=== PATIENT | male | born 1930 | race Caucasian/White ===

== ENCOUNTER 2020-02-24 12:58 | Inpatient (IN) | payer MEDICARE, OTHER ==
[~2020-02-24] VITALS: Ht 177.8 cm; Wt 83.3 kg
--- NOTE | 2020-02-24 13:34 | EKG ---
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
[2020-02-24 13:40] LABS: BASO # 0.1 x10^3/uL (0.0-0.2); BASO % 1 % (0-3); EOS # 0.1 x10^3/uL (0.0-0.7); EOS % 1 % (0-3); HEMATOCRIT 41.4 % (39.0-53.0); HEMOGLOBIN 13.8 g/dL (13.0-17.5); LYMPH # 0.7 x10^3/uL (1.0-4.8); LYMPH % 9 % (24-48); MEAN CORPUSCULAR HEMOGLOBIN 31 pg (25-35); MEAN CORPUSCULAR HGB CONC 33 g/dL (31-37); MEAN CORPUSCULAR VOLUME 93 fL (79-100); MONO # 0.4 x10^3/uL (0.0-1.1); MONO % 5 % (0-9); NEUT # 6.6 x10^3uL (1.8-7.7); NEUT % 83 % (31-73); PLATELET COUNT 280 x10^3/uL (140-400); RED BLOOD COUNT 4.46 x10^6/uL (4.30-5.70)
[2020-02-24 13:45] LABS: CALCIUM 8.8 mg/dL (8.5-10.1); CREATININE 1.5 mg/dL (0.7-1.3); GFR 44.2; POTASSIUM 3.7 mmol/L (3.5-5.1)
[2020-02-24] MEDS ORDERED: FOLI0.8C PO (13:51)
[2020-02-24] MEDS ORDERED: CYAN500T52 PO (13:51)
[2020-02-24] MEDS ORDERED: DOCU-109 PO (13:51)
[2020-02-24] MEDS ORDERED: ASPI-612 PO (13:51)
[2020-02-24] MEDS ORDERED: ATOR40TA59 PO (13:51)
[2020-02-24] MEDS ORDERED: TAMS0.4C97 PO (13:51)
[2020-02-24] MEDS ORDERED: POLY17PO5 PO (13:51)
[2020-02-24] MEDS ORDERED: TRAZ-120 PO (13:51)
[2020-02-24] MEDS ORDERED: OXYC5CAP PO (13:51)
[2020-02-24] MEDS ORDERED: MULT-735 PO (13:51)
[2020-02-24] MEDS ORDERED: OLAN10TA3 PO (13:51)
[2020-02-24] MEDS ORDERED: NITR0.4T22 SL (13:51)
[2020-02-24 13:52] LABS: ALBUMIN 3.3 g/dL (3.4-5.0); MAGNESIUM 2.3 mg/dL (1.8-2.4); TOTAL BILIRUBIN 0.8 mg/dL (0.2-1.0); TOTAL PROTEIN 6.7 g/dL (6.4-8.2)
--- NOTE | 2020-02-24 14:39 | PHYS DOC ---
General Adult EDM: Chief Complaint: MEDICAL CLEARANCE HPI: HPI: 89-year-old male presents for medical clearance for [facility] admission. Patient was reported to be difficult at his care facility. He was grabbing onto people and not compliant. He denies any medical complaints to me. Review of Systems: Review of Systems: Constitutional: Denies fever or chills Eyes: Denies change in visual acuity HENT: Denies nasal congestion or sore throat Respiratory: Denies cough or shortness of breath Cardiovascular: Denies chest pain or edema GI: Denies abdominal pain, nausea, vomiting, bloody stools or diarrhea : Denies dysuria Musculoskeletal: Denies back pain or joint pain Integument: Denies rash Neurologic: Denies headache, focal weakness or sensory changes Endocrine: Denies polyuria or polydipsia Lymphatic: Denies swollen glands Psychiatric: Denies depression or anxiety Heart Score: Risk Factors: Risk Factors: DM, Current or recent (<one month) smoker, HTN, HLP, family history of CAD, obesity. Risk Scores: Score 0 - 3: 2.5% MACE over next 6 weeks - Discharge Home Score 4 - 6: 20.3% MACE over next 6 weeks - Admit for Clinical Observation Score 7 - 10: 72.7% MACE over next 6 weeks - Early Invasive Strategies Allergies: Allergies: Allergies Coded Allergies Type Severity Reaction Last Updated Verified caffeine Allergy Unknown 02/24/20 Yes ranitidine Allergy Unknown 02/24/20 Yes Physical Exam: PE: Constitutional: Well developed, well nourished, no acute distress, non-toxic appearance. [] HENT: Normocephalic, atraumatic, bilateral external ears normal, oropharynx moist, no oral exudates, nose normal. [] Eyes: PERRLA, EOMI, conjunctiva normal, no discharge. [] Neck: Normal range of motion, no tenderness, supple, no stridor. [] Cardiovascular: Heart rate regular rhythm, no murmur [] Lungs & Thorax: Bilateral breath sounds clear to auscultation [] Abdomen: Bowel sounds normal, soft, no tenderness, no masses, no pulsatile masses. [] Skin: Warm, dry, no erythema, no rash. [] Back: No tenderness, no CVA tenderness. [] Extremities: No tenderness, no cyanosis, no clubbing, ROM intact, no edema. [] Neurologic: Alert normal motor function, normal sensory function, no focal deficits noted. [] Psychologic: Affect normal, judgement normal, mood normal. [] Current Patient Data: Labs: Laboratory Tests Test 02/24/20 13:25 White Blood Count 8.0 x10^3/uL (4.0-11.0) Red Blood Count 4.46 x10^6/uL (4.30-5.70) Hemoglobin 13.8 g/dL (13.0-17.5) Hematocrit 41.4 % (39.0-53.0) Mean Corpuscular Volume 93 fL (79-100) Mean Corpuscular Hemoglobin 31 pg (25-35) Mean Corpuscular Hemoglobin Concent 33 g/dL (31-37) Red Cell Distribution Width 15.0 % (11.5-14.5) H Platelet Count 280 x10^3/uL (140-400) Neutrophils (%) (Auto) 83 % (31-73) H Lymphocytes (%) (Auto) 9 % (24-48) L Monocytes (%) (Auto) 5 % (0-9) Eosinophils (%) (Auto) 1 % (0-3) Basophils (%) (Auto) 1 % (0-3) Neutrophils # (Auto) 6.6 x10^3uL (1.8-7.7) Lymphocytes # (Auto) 0.7 x10^3/uL (1.0-4.8) L Monocytes # (Auto) 0.4 x10^3/uL (0.0-1.1) Eosinophils # (Auto) 0.1 x10^3/uL (0.0-0.7) Basophils # (Auto) 0.1 x10^3/uL (0.0-0.2) Sodium Level 141 mmol/L (136-145) Potassium Level 3.7 mmol/L (3.5-5.1) Chloride Level 102 mmol/L (98-107) Carbon Dioxide Level 27 mmol/L (21-32) Anion Gap 12 (6-14) Blood Urea Nitrogen 33 mg/dL (8-26) H Creatinine 1.5 mg/dL (0.7-1.3) H Estimated GFR (Cockcroft-Gault) 44.2 BUN/Creatinine Ratio 22 (6-20) H Glucose Level 134 mg/dL (70-99) H Calcium Level 8.8 mg/dL (8.5-10.1) Magnesium Level 2.3 mg/dL (1.8-2.4) Total Bilirubin 0.8 mg/dL (0.2-1.0) Aspartate Amino Transferase (AST) 35 U/L (15-37) Alanine Aminotransferase (ALT) 50 U/L (16-63) Alkaline Phosphatase 82 U/L (46-116) Total Protein 6.7 g/dL (6.4-8.2) Albumin 3.3 g/dL (3.4-5.0) L Albumin/Globulin Ratio 1.0 (1.0-1.7) EKG: EKG: Sinus rhythm, rate 84, leftward axis, no ST elevations or depressions. Possible Q waves in multiple leads. [] Radiology/Procedures: Radiology/Procedures: [] Course & Med Decision Making: Course & Med Decision Making Pertinent Labs and Imaging studies reviewed. (See chart for details) The patient's EKG does not have any acute findings. Labs are unremarkable e xcept for creatinine 1.5. I have no baseline for comparison. He is medically stable for behavioral health admission. [] Dragon Disclaimer: Dragon Disclaimer: This electronic medical record was generated, in whole or in part, using a voice recognition dictation system. Departure Departure: Impression: Primary Impression: Medical clearance for psychiatric admission Disposition: ADMITTED INPATIENT Condition: STABLE Referrals: PCP,UNKNOWN (PCP) KELSIE RICHARDS DO February 24, 2020 14:39
[2020-02-24 15:39] LABS: CLARITY,URINE CLOUDY; COLOR,URINE AMBER
[2020-02-24 15:42] LABS: BILIRUBIN,URINE NEG (NEG); GLUCOSE,URINE NEG (NEG)
[2020-02-24 15:43] LABS: BACTERIA,URINE MOD /HPF (0-FEW); NITRITE,URINE NEG (NEG); RBC,URINE >40 /HPF (0-2); SQUAMOUS EPITHELIAL CELL,UR FEW /LPF
[2020-02-24] MEDS ORDERED: MAGNESIUM HYDROXIDE 2,400 MG/30 ML ORAL.SUSP. PO PRN (15:45)
[2020-02-24] MEDS ORDERED: MAG HYDROX/AL HYDROX/SIMETH 30 ML ORAL.SUSP PO PRN (15:45)
[2020-02-24] MEDS ORDERED: METHYL SALICYLATE/MENTHOL TOPICAL OINTMENT 57GM TUBE. TP PRN (15:45)
[2020-02-24] MEDS ORDERED: RIVA1PAT22 TP (15:48)
[2020-02-24] MEDS ORDERED: NITROGLYCERIN SUBLINGUAL 0.4 MG BOTTLE OF 25. SL PRN (16:00)
[2020-02-24] MEDS ORDERED: DOCUSATE SODIUM 100 MG CAPSULE PO PRN (16:00)
[2020-02-24 16:24] VITALS: BP 134/88
[2020-02-24] MEDS: OLANZapine 10 MG TABLET PO SCH (20:15)
[2020-02-24] MEDS: ATORVASTATIN CALCIUM 20 MG TABLET PO SCH (20:15)
[2020-02-24] MEDS: TAMSULOSIN 0.4 MG CAP.ER.24H. PO SCH (20:15)
--- NOTE | 2020-02-24 22:02 | PDOC ---
Exam Note: Jay Note: Please also refer to the separate dictated note~for this date of service dictated separately. Discussed the patient with Nursing staff reviewed the chart.~Reviewed interim history and current functioning. Reviewed vital signs,~Labs/ Radiology~and current medications noted below. Continue current treatment with the changes noted in the dictated addendum note Assessment: Vital Signs/I&O: Vital Signs Date Time Temp Pulse Resp B/P (MAP) Pulse Ox O2 Delivery O2 Flow Rate FiO2 02/24/20 16:24 98.0 77 18 134/88 (103) 93 02/24/20 12:58 Room Air Labs: Laboratory Tests Test 02/24/20 13:25 02/24/20 14:56 White Blood Count 8.0 x10^3/uL (4.0-11.0) Red Blood Count 4.46 x10^6/uL (4.30-5.70) Hemoglobin 13.8 g/dL (13.0-17.5) Hematocrit 41.4 % (39.0-53.0) Mean Corpuscular Volume 93 fL (79-100) Mean Corpuscular Hemoglobin 31 pg (25-35) Mean Corpuscular Hemoglobin Concent 33 g/dL (31-37) Red Cell Distribution Width 15.0 % (11.5-14.5) H Platelet Count 280 x10^3/uL (140-400) Neutrophils (%) (Auto) 83 % (31-73) H Lymphocytes (%) (Auto) 9 % (24-48) L Monocytes (%) (Auto) 5 % (0-9) Eosinophils (%) (Auto) 1 % (0-3) Basophils (%) (Auto) 1 % (0-3) Neutrophils # (Auto) 6.6 x10^3uL (1.8-7.7) Lymphocytes # (Auto) 0.7 x10^3/uL (1.0-4.8) L Monocytes # (Auto) 0.4 x10^3/uL (0.0-1.1) Eosinophils # (Auto) 0.1 x10^3/uL (0.0-0.7) Basophils # (Auto) 0.1 x10^3/uL (0.0-0.2) Sodium Level 141 mmol/L (136-145) Potassium Level 3.7 mmol/L (3.5-5.1) Chloride Level 102 mmol/L (98-107) Carbon Dioxide Level 27 mmol/L (21-32) Anion Gap 12 (6-14) Blood Urea Nitrogen 33 mg/dL (8-26) H Creatinine 1.5 mg/dL (0.7-1.3) H Estimated GFR (Cockcroft-Gault) 44.2 BUN/Creatinine Ratio 22 (6-20) H Glucose Level 134 mg/dL (70-99) H Calcium Level 8.8 mg/dL (8.5-10.1) Magnesium Level 2.3 mg/dL (1.8-2.4) Total Bilirubin 0.8 mg/dL (0.2-1.0) Aspartate Amino Transferase (AST) 35 U/L (15-37) Alanine Aminotransferase (ALT) 50 U/L (16-63) Alkaline Phosphatase 82 U/L (46-116) Total Protein 6.7 g/dL (6.4-8.2) Albumin 3.3 g/dL (3.4-5.0) L Albumin/Globulin Ratio 1.0 (1.0-1.7) Urine Collection Type Unknown Urine Color Jaclyn Urine Clarity Cloudy Urine pH 5.5 Urine Specific [place] >=1.030 Urine Protein 100 mg/dl (NEG-TRACE) Urine Glucose (UA) Neg mg/dL (NEG) Urine Ketones (Stick) 80 mg/dL (NEG) Urine Blood Large (NEG) Urine Nitrite Neg (NEG) Urine Bilirubin Neg (NEG) Urine Urobilinogen Dipstick 4.0 mg/dL (0.2 mg/dL) Urine Leukocyte Esterase Trace (NEG) Urine RBC >40 /HPF (0-2) Urine WBC 5-10 /HPF (0-4) Urine Squamous Epithelial Cells Few /LPF Urine Bacteria Mod /HPF (0-FEW) Urine Mucus Slight /LPF Current Medications: Meds: Current Medications Medications (Trade) Dose Ordered Sig/Nader Route PRN Reason Start Time Stop Time Status Last Admin Dose Admin Olanzapine (ZyPREXA) 10 mg BID PO 02/24/20 21:00 02/24/20 20:15 Tamsulosin HCl (Flomax) 0.8 mg HS PO 02/24/20 21:00 02/24/20 20:15 Atorvastatin Calcium (Lipitor) 40 mg QHS PO 02/24/20 21:00 02/24/20 20:15 I have reviewed the current psychotropics carefully including drug interactions. Risk benefit ratio favors no change other than as noted in my dictated progress note. Diagnosis: Problems: (1) Medical clearance for psychiatric admission ELI BURLESON MD February 24, 2020 22:02
[2020-02-25] MEDS: traZODone 50 MG TABLET. PO PRN ×2 (01:33→20:00)
[2020-02-25 04:07] LABS: THYROXINE 8.1 ug/dL (4.5-12.0)
[2020-02-25] MEDS: oxyCODONE IR 5 MG TABLET PO PRN (05:11)
[2020-02-25 05:37] VITALS: BP 144/78
[2020-02-25 07:08] LABS: HEMOGLOBIN A1C 5.6 % (4.8-5.6)
[2020-02-25] MEDS: RIVASTIGMINE 4.6MG PATCH. TD SCH (08:01)
[2020-02-25] MEDS: POLYETHYLENE GLYCOL 3350 17 GM PACKET. PO SCH (08:01)
[2020-02-25] MEDS: CYANOCOBALAMIN (VITAMIN B-12) 250 MCG TABLET PO SCH (08:02)
[2020-02-25] MEDS: NICOTINE 7MG PATCH. TD SCH (08:02)
[2020-02-25] MEDS: ASPIRIN ENTERIC COATED 81 MG TABLET.DR. PO SCH (08:02)
[2020-02-25] MEDS: MULTIVITAMIN with MINERAL TABLET. PO SCH (08:02)
[2020-02-25] MEDS: FOLIC ACID 1 MG TABLET PO SCH (08:02)
[2020-02-25] MEDS: OLANZapine 10 MG TABLET PO SCH (08:02)
[2020-02-25 15:09] LABS: THYROID STIM HORMONE (TSH) 3.238 uIU/mL (0.358-3.740)
[2020-02-25 15:50] VITALS: BP 160/91
[2020-02-25] MEDS: TAMSULOSIN 0.4 MG CAP.ER.24H. PO SCH (20:00)
[2020-02-25] MEDS: ATORVASTATIN CALCIUM 20 MG TABLET PO SCH (20:01)
--- NOTE | 2020-02-25 22:07 | PN ---
DATE: 02/25/2020 PSYCHIATRIC PROGRESS NOTE This note covers elements not covered in my initial note of 02/25/2020. SUBJECTIVE: I met with the patient evening of 02/25/2020 on AV, audiovisual rounds. Discussed with RAFAELA Arceo. The patient remains confused, anxious, restless, somewhat impulsive, trying to jump out of his chair and he has a past history of fall out of the chair. Catheter has been replaced back. He remains confused. REVIEW OF SYSTEMS: Ambulation impaired, in wheelchair. No CV, , pulmonary, eye system symptoms on review. MENTAL STATUS EXAM: Oriented to himself. Insight, judgment, recent memory is impaired. Language function intact. Attention span short. Mood and affect remains labile. LABORATORY DATA: Reviewed. IMPRESSION: Major neurocognitive disorder, Alzheimer, vascular with delusion, depression, behavioral disturbance; anxiety disorder, unspecified; impulse control disorder, unspecified; rule out urinary tract infection. Rest unchanged. PLAN: Continue current psychotropics. Reduce Zyprexa from 10 mg b.i.d. down to 5 mg b.i.d. Consider adding Depakote as a mood stabilizer, especially given his past history of seizure disorder and impulse control, restlessness, mood lability. Continue rest unchanged including Exelon patch, will make further changes as clinically indicated. MAN Natalia BURLESON MD DR: DANIEL/glenn JOB#: [id number] / [id number]
--- NOTE | 2020-02-25 22:13 | PDOC ---
Exam Note: Jay Note: Please also refer to the separate dictated note~for this date of service dictated separately.~Patient seen individually. Discussed the patient with Nursing staff reviewed the chart.~Reviewed interim history and current functioning. Reviewed vital signs,~Labs/ Radiology~and current medications noted below. Continue current treatment with the changes noted in the dictated addendum note Assessment: Vital Signs/I&O: Vital Signs Date Time Temp Pulse Resp B/P (MAP) Pulse Ox O2 Delivery O2 Flow Rate FiO2 02/25/20 15:50 97.6 76 18 160/91 (114) 95 02/25/20 05:37 Room Air I & O 02/24/20 02/24/20 02/25/20 14:59 22:59 06:59 Intake Total 0 ml Output Total 450 ml Balance 0 ml -450 ml Current Medications: Meds: Current Medications Medications (Trade) Dose Ordered Sig/Nader Route PRN Reason Start Time Stop Time Status Last Admin Dose Admin Nicotine (Nicoderm Cq 7mg) 1 patch DAILY TD 02/25/20 09:00 02/25/20 08:02 Aspirin (Aspirin Enteric Coated) 81 mg DAILY PO 02/25/20 09:00 02/25/20 08:02 Polyethylene Glycol (miraLAX) 17 gm DAILY PO 02/25/20 09:00 02/25/20 08:01 Rivastigmine (Exelon) 1 patch DAILY TD 02/25/20 09:00 03/25/20 10:00 02/25/20 08:01 Cyanocobalamin (Vitamin B-12) 500 mcg DAILY PO 02/25/20 09:00 02/25/20 08:02 Folic Acid (Folic Acid) 1 mg DAILY PO 02/25/20 09:00 02/25/20 08:02 Multivitamins/ Calcium (Thera-M Plus) 1 tab DAILY PO 02/25/20 09:00 02/25/20 08:02 I have reviewed the current psychotropics carefully including drug interactions. Risk benefit ratio favors no change other than as noted in my dictated progress note. Diagnosis: Problems: (1) Medical clearance for psychiatric admission (2) Major neurocognitive disorder, due to vascular disease, with behavioral disturbance, mild (3) Dementia, vascular, with delusions (4) Dementia, vascular, with depression (5) Dementia in Alzheimer's disease with delusions (6) Dementia in Alzheimer's disease with depression (7) Impulse control disorder, unspecified (8) Anxiety disorder, unspecified ELI BURLESON MD February 25, 2020 22:13
--- NOTE | 2020-02-25 23:17 | HP ---
ADMIT DATE: 02/24/2020 PSYCHIATRIC ADMISSION HISTORY/EVALUATION This late entry 02/24/2020 covers elements not covered in my initial note of 02/24/2020. The patient was seen individually evening of 02/24/2020. IDENTIFYING DATA: The patient is an 89-year-old male referred to us from [facility] by his primary care physician on account of worsening confusion, paranoia, agitation. He was pulling out his catheter, lunging from his wheelchair and had a fall as a consequence of this. He was yelling and hitting at staff, yelling at peers, pinching others, worsening confusion with worsening psychotic symptoms. He had failed outpatient psychiatric interventions. Behaviors were deemed dangerous, unmanageable at the facility resulting in this referral. He had been on IM Geodon p.r.n. in addition to Zyprexa 10 mg b.i.d. and had failed all of these interventions. CHIEF COMPLAINT: "I'm okay." HISTORY OF PRESENT ILLNESS: The patient has a history of dementia, Alzheimer's vascular type. He has been residing at the above facility for some time, but recently getting more paranoid, agitated, anxious and impulsive. He has had falls as noted, fevers, appetite changes, worsening paranoia. No clear history of bipolar disorder, suicidal or homicidal ideation. PAST PSYCHIATRIC HISTORY: As above. 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 Ambulates using a wheelchair. Urine has reflex to culture is pending. DIET: Regular. Takes medications whole. CODE STATUS: DNR. ALLERGIES: CAFFEINE, RANITIDINE. CURRENT PSYCHOTROPICS: Trazodone 50 mg at bedtime p.r.n. insomnia, Zyprexa 10 mg b.i.d.; Exelon patch 4.6 mg a day, increasing to 9.5 mg a day ____. FAMILY HISTORY: Noncontributory. SOCIAL HISTORY: No alcohol, drug abuse, physical, sexual or elder abuse history is noted. He is not known to be a perpetrator. REACTION TO HOSPITALIZATION: The patient is somewhat oblivious of this. ASSETS: Supportive living at the above facility. REVIEW OF SYSTEMS: Ambulation impaired. No CV, , pulmonary, eye system symptoms on review. Reliability poor. MENTAL STATUS EXAMINATION: The patient was seen individually evening of 02/24/2020. He is oriented to himself, thought the year was 21, was unaware of who the president was. Insight, judgment, recent memory is impaired. Language function intact. Attention span short. Mood and affect somewhat withdrawn. He had received PRNs before coming to our unit, was somewhat sedated. No active suicidal or homicidal ideations. LABORATORY DATA: Reviewed. IMPRESSION: Major neurocognitive disorder, probably vascular with delusion, depression, behavioral disturbance; anxiety disorder, unspecified; impulse control disorder, unspecified; rule out urinary tract infection. Rest as above. RECOMMENDATION: Please admit to the Geropsychiatry Unit at [facility]. I will see the patient daily individually from a psychiatric standpoint, medical followup with Dr. Metcalf. Continue the patient on his current psychotropics, observe baseline, may consider reducing the Zyprexa and using Depakote as a mood stabilizer, especially given his past history of seizure disorder. We will make further adjustments post baseline assessment. ESTIMATED LENGTH OF STAY: 10-12 days. DISPOSITION: Plan is back to halfway when stable. MAN Natalia BURLESON MD DR: DANIEL/glenn JOB#: [id number] / [id number]
[2020-02-26 06:25] VITALS: BP 161/62
[2020-02-26] MEDS: ASPIRIN ENTERIC COATED 81 MG TABLET.DR. PO SCH (08:05)
[2020-02-26] MEDS: RIVASTIGMINE 4.6MG PATCH. TD SCH (08:05)
[2020-02-26] MEDS: NICOTINE 7MG PATCH. TD SCH (08:05)
[2020-02-26] MEDS: FOLIC ACID 1 MG TABLET PO SCH (08:05)
[2020-02-26] MEDS: POLYETHYLENE GLYCOL 3350 17 GM PACKET. PO SCH (08:05)
[2020-02-26] MEDS: MULTIVITAMIN with MINERAL TABLET. PO SCH (08:06)
[2020-02-26] MEDS: CYANOCOBALAMIN (VITAMIN B-12) 250 MCG TABLET PO SCH (08:06)
[2020-02-26 15:32] VITALS: BP 138/89
[2020-02-26] MEDS: TAMSULOSIN 0.4 MG CAP.ER.24H. PO SCH (20:57)
[2020-02-26] MEDS: ATORVASTATIN CALCIUM 20 MG TABLET PO SCH (20:57)
[2020-02-26] MEDS: OLANZapine 5 MG TABLET PO SCH (20:57)
--- NOTE | 2020-02-26 22:17 | PDOC ---
Exam Note: Jay Note: Please also refer to the separate dictated note~for this date of service dictated separately.~Patient seen individually. Discussed the patient with Nursing staff reviewed the chart.~Reviewed interim history and current functioning. Reviewed vital signs,~Labs/ Radiology~and current medications noted below. Continue current treatment with the changes noted in the dictated addendum note Assessment: Vital Signs/I&O: Vital Signs Date Time Temp Pulse Resp B/P (MAP) Pulse Ox O2 Delivery O2 Flow Rate FiO2 02/26/20 15:32 97.4 72 18 138/89 (105) 95 02/26/20 06:25 Room Air I & O 02/25/20 02/25/20 02/26/20 15:00 23:00 07:00 Intake Total 480 ml 170 ml Output Total 1400 ml Balance 480 ml -1230 ml Current Medications: Meds: Current Medications Medications (Trade) Dose Ordered Sig/Nader Route PRN Reason Start Time Stop Time Status Last Admin Dose Admin Olanzapine (ZyPREXA) 5 mg BID PO 02/26/20 21:00 02/26/20 20:57 I have reviewed the current psychotropics carefully including drug interactions. Risk benefit ratio favors no change other than as noted in my dictated progress note. Diagnosis: Problems: (1) Medical clearance for psychiatric admission (2) Impulse control disorder, unspecified (3) Anxiety disorder, unspecified (4) Dementia, vascular, with depression (5) Dementia, vascular, with delusions (6) Dementia in Alzheimer's disease with depression (7) Dementia in Alzheimer's disease with delusions (8) Major neurocognitive disorder, due to vascular disease, with behavioral disturbance, mild ELI BURLESON MD February 26, 2020 22:17
[2020-02-27 06:33] VITALS: BP 137/89
[2020-02-27] MEDS: POLYETHYLENE GLYCOL 3350 17 GM PACKET. PO SCH (07:38)
[2020-02-27] MEDS: MULTIVITAMIN with MINERAL TABLET. PO SCH (07:39)
[2020-02-27] MEDS: OLANZapine 5 MG TABLET PO SCH ×2 (07:39→20:31)
[2020-02-27] MEDS: ASPIRIN ENTERIC COATED 81 MG TABLET.DR. PO SCH (07:39)
[2020-02-27] MEDS: RIVASTIGMINE 4.6MG PATCH. TD SCH (07:39)
[2020-02-27] MEDS: FOLIC ACID 1 MG TABLET PO SCH (07:39)
[2020-02-27] MEDS: CYANOCOBALAMIN (VITAMIN B-12) 250 MCG TABLET PO SCH (07:39)
[2020-02-27] MEDS: NICOTINE 7MG PATCH. TD SCH (07:40)
[2020-02-27] MEDS: oxyCODONE IR 5 MG TABLET PO PRN (11:57)
[2020-02-27 15:44] VITALS: BP 163/92
[2020-02-27] MEDS: ATORVASTATIN CALCIUM 20 MG TABLET PO SCH (20:31)
[2020-02-27] MEDS: traZODone 50 MG TABLET. PO PRN (20:31)
[2020-02-27] MEDS: TAMSULOSIN 0.4 MG CAP.ER.24H. PO SCH (20:31)
--- NOTE | 2020-02-27 21:43 | PN ---
DATE: 02/26/2020 PSYCHIATRIC PROGRESS NOTE This late entry 02/26/2020 covers elements not covered in my initial note. SUBJECTIVE: I met with the patient evening of 02/26/2020. Per RAFAELA Arceo, the patient slept 8 hours previous night. He has been quite sedated, tired during the day. This is despite reduction of Zyprexa from 10 mg b.i.d. down to 5 mg twice a day. Urine C and S has returned with no growth. He does seem more oriented than it seemed initially at admission as I questioned him, he knew it was 02/2020. REVIEW OF SYSTEMS: Positive for tiredness, impaired ambulation in wheelchair. No CV, , pulmonary, eye system symptoms on review. MENTAL STATUS EXAM: Oriented to himself and situation. Speech has some latency, often responses monosyllabic. Abstraction fair, computation impaired, language function intact, attention span short. Mood and affect withdrawn. LABORATORY DATA: Reviewed. IMPRESSION: Major depressive disorder, recurrent; major neurocognitive disorder, probably vascular with delusion, depression; anxiety disorder, unspecified. Rest unchanged. PLAN: Continue the lower dosage of Zyprexa 5 mg b.i.d. He is on Exelon patch, which is being increased. We will not use the trazodone since he is already sedated. May add low dose Wellbutrin as an augmentation and to help with his daytime energy, but I would like to give it a day or two and then decide. ELI BURLESON MD DR: DANIEL/glenn JOB#: [id number] / [id number]
--- NOTE | 2020-02-27 22:23 | PDOC ---
Exam Note: Jay Note: Please also refer to the separate dictated note~for this date of service dictated separately.~Patient seen individually. Discussed the patient with Nursing staff reviewed the chart.~Reviewed interim history and current functioning. Reviewed vital signs,~Labs/ Radiology~and current medications noted below. Continue current treatment with the changes noted in the dictated addendum note Assessment: Vital Signs/I&O: Vital Signs Date Time Temp Pulse Resp B/P (MAP) Pulse Ox O2 Delivery O2 Flow Rate FiO2 02/27/20 15:44 97.5 87 16 163/92 (115) 94 02/26/20 06:25 Room Air I & O 02/26/20 02/26/20 02/27/20 14:59 22:59 06:59 Intake Total 600 ml 240 ml 120 ml Output Total 250 ml 400 ml Balance 350 ml -160 ml 120 ml Current Medications: I have reviewed the current psychotropics carefully including drug interactions. Risk benefit ratio favors no change other than as noted in my dictated progress note. Diagnosis: Problems: (1) Medical clearance for psychiatric admission (2) Impulse control disorder, unspecified (3) Anxiety disorder, unspecified (4) Dementia, vascular, with depression (5) Dementia, vascular, with delusions (6) Dementia in Alzheimer's disease with depression (7) Dementia in Alzheimer's disease with delusions (8) Major neurocognitive disorder, due to vascular disease, with behavioral disturbance, mild ELI BURLESON MD February 27, 2020 22:23
[2020-02-28 06:32] VITALS: BP 131/73
[2020-02-28 06:47] LABS: BASO % 1 % (0-3); EOS # 0.8 x10^3/uL (0.0-0.7); EOS % 9 % (0-3); HEMATOCRIT 33.5 % (39.0-53.0); HEMOGLOBIN 11.2 g/dL (13.0-17.5); LYMPH # 1.7 x10^3/uL (1.0-4.8); LYMPH % 19 % (24-48); MEAN CORPUSCULAR HEMOGLOBIN 31 pg (25-35); MEAN CORPUSCULAR HGB CONC 34 g/dL (31-37); MEAN CORPUSCULAR VOLUME 92 fL (79-100); MONO # 0.6 x10^3/uL (0.0-1.1); MONO % 7 % (0-9); NEUT # 5.6 x10^3uL (1.8-7.7); NEUT % 64 % (31-73); PLATELET COUNT 209 x10^3/uL (140-400); RED BLOOD COUNT 3.63 x10^6/uL (4.30-5.70); WHITE BLOOD COUNT 8.7 x10^3/uL (4.0-11.0)
[2020-02-28 07:05] LABS: ALBUMIN 2.5 g/dL (3.4-5.0); ALBUMIN/GLOBULIN RATIO 0.9 (1.0-1.7); CALCIUM 8.1 mg/dL (8.5-10.1); CREATININE 1.2 mg/dL (0.7-1.3); GFR 57.1; POTASSIUM 3.8 mmol/L (3.5-5.1); TOTAL BILIRUBIN 0.7 mg/dL (0.2-1.0); TOTAL PROTEIN 5.4 g/dL (6.4-8.2)
[2020-02-28] MEDS: FOLIC ACID 1 MG TABLET PO SCH (09:00)
[2020-02-28] MEDS: ASPIRIN ENTERIC COATED 81 MG TABLET.DR. PO SCH (09:00)
[2020-02-28] MEDS: CYANOCOBALAMIN (VITAMIN B-12) 250 MCG TABLET PO SCH (09:01)
[2020-02-28] MEDS: SERTRALINE 25 MG TABLET. PO SCH (09:01)
[2020-02-28] MEDS: NICOTINE 7MG PATCH. TD SCH (09:01)
[2020-02-28] MEDS: POLYETHYLENE GLYCOL 3350 17 GM PACKET. PO SCH (09:01)
[2020-02-28] MEDS: MULTIVITAMIN with MINERAL TABLET. PO SCH (09:01)
[2020-02-28] MEDS: RIVASTIGMINE 4.6MG PATCH. TD SCH (09:01)
[2020-02-28] MEDS: OLANZapine 5 MG TABLET PO SCH (09:01)
[2020-02-28 16:44] VITALS: BP 121/75
[2020-02-28] MEDS: TAMSULOSIN 0.4 MG CAP.ER.24H. PO SCH (21:24)
[2020-02-28] MEDS: ATORVASTATIN CALCIUM 20 MG TABLET PO SCH (21:24)
[2020-02-28] MEDS: OLANZapine 2.5 MG TABLET PO SCH (21:24)
--- NOTE | 2020-02-28 22:00 | PN ---
DATE: 02/27/2020 PSYCHIATRIC PROGRESS NOTE This late entry 02/26 covers elements not covered in my initial note. SUBJECTIVE: I met with the patient evening of 02/26 on audiovisual rounds. Per RAFAELA Arceo, the patient slept 6 hours previous night. He did well at night and has been less tired during the day on 02/26. He remains in his wheelchair, went for meals to the dining room. REVIEW OF SYSTEMS: Ambulation impaired, in wheelchair. No CV, , pulmonary, eye system symptoms on review. MENTAL STATUS EXAM: Oriented to himself and situation. Speech is coherent, has some latency, appears less sedated. Abstraction fair, computation impaired, language function intact. Short-term memory does have some deficits, but less so than was evident earlier. No active suicidal or homicidal ideation. LABORATORY DATA: Reviewed. IMPRESSION: Major depressive disorder with psychotic features; mild cognitive impairment versus major neurocognitive disorder, Alzheimer, vascular with delusion, depression; impulse control disorder; rest unchanged. PLAN: We considered reducing Zyprexa further in due course, currently at 5 mg b.i.d. Maintain Exelon patch, trazodone. Start Zoloft 25 mg a day for 3 days, then 50 mg a day thereafter. Adjust further as clinically indicated. MAN Natalia BURLESON MD DR: DANIEL/glenn JOB#: [id number] / [id number]
--- NOTE | 2020-02-28 22:01 | PDOC ---
Exam Note: Jay Note: Please also refer to the separate dictated note~for this date of service dictated separately.~Patient seen individually. Discussed the patient with Nursing staff reviewed the chart.~Reviewed interim history and current functioning. Reviewed vital signs,~Labs/ Radiology~and current medications noted below. Continue current treatment with the changes noted in the dictated addendum note Assessment: Vital Signs/I&O: Vital Signs Date Time Temp Pulse Resp B/P (MAP) Pulse Ox O2 Delivery O2 Flow Rate FiO2 02/28/20 16:44 98.6 100 16 121/75 (90) 97 02/26/20 06:25 Room Air I & O 02/27/20 02/27/20 02/28/20 14:59 22:59 06:59 Intake Total 810 ml 320 ml Output Total 1000 ml Balance 810 ml -680 ml Labs: Laboratory Tests Test 02/28/20 06:08 White Blood Count 8.7 x10^3/uL (4.0-11.0) Red Blood Count 3.63 x10^6/uL (4.30-5.70) L Hemoglobin 11.2 g/dL (13.0-17.5) L Hematocrit 33.5 % (39.0-53.0) L Mean Corpuscular Volume 92 fL (79-100) Mean Corpuscular Hemoglobin 31 pg (25-35) Mean Corpuscular Hemoglobin Concent 34 g/dL (31-37) Red Cell Distribution Width 15.0 % (11.5-14.5) H Platelet Count 209 x10^3/uL (140-400) Neutrophils (%) (Auto) 64 % (31-73) Lymphocytes (%) (Auto) 19 % (24-48) L Monocytes (%) (Auto) 7 % (0-9) Eosinophils (%) (Auto) 9 % (0-3) H Basophils (%) (Auto) 1 % (0-3) Neutrophils # (Auto) 5.6 x10^3uL (1.8-7.7) Lymphocytes # (Auto) 1.7 x10^3/uL (1.0-4.8) Monocytes # (Auto) 0.6 x10^3/uL (0.0-1.1) Eosinophils # (Auto) 0.8 x10^3/uL (0.0-0.7) H Basophils # (Auto) 0.0 x10^3/uL (0.0-0.2) Sodium Level 140 mmol/L (136-145) Potassium Level 3.8 mmol/L (3.5-5.1) Chloride Level 104 mmol/L (98-107) Carbon Dioxide Level 28 mmol/L (21-32) Anion Gap 8 (6-14) Blood Urea Nitrogen 29 mg/dL (8-26) H Creatinine 1.2 mg/dL (0.7-1.3) Estimated GFR (Cockcroft-Gault) 57.1 BUN/Creatinine Ratio 24 (6-20) H Glucose Level 92 mg/dL (70-99) Calcium Level 8.1 mg/dL (8.5-10.1) L Total Bilirubin 0.7 mg/dL (0.2-1.0) Aspartate Amino Transferase (AST) 22 U/L (15-37) Alanine Aminotransferase (ALT) 37 U/L (16-63) Alkaline Phosphatase 75 U/L (46-116) Total Protein 5.4 g/dL (6.4-8.2) L Albumin 2.5 g/dL (3.4-5.0) L Albumin/Globulin Ratio 0.9 (1.0-1.7) L Current Medications: Meds: Current Medications Medications (Trade) Dose Ordered Sig/Nader Route PRN Reason Start Time Stop Time Status Last Admin Dose Admin Sertraline HCl (Zoloft) 25 mg DAILY PO 02/28/20 09:00 03/02/20 08:00 02/28/20 09:01 Olanzapine (ZyPREXA) 2.5 mg BID PO 02/28/20 21:00 02/28/20 21:24 I have reviewed the current psychotropics carefully including drug interactions. Risk benefit ratio favors no change other than as noted in my dictated progress note. Diagnosis: Problems: (1) Medical clearance for psychiatric admission (2) Impulse control disorder, unspecified (3) Anxiety disorder, unspecified (4) Dementia, vascular, with depression (5) Dementia, vascular, with delusions (6) Dementia in Alzheimer's disease with depression (7) Dementia in Alzheimer's disease with delusions (8) Major neurocognitive disorder, due to vascular disease, with behavioral disturbance, mild SARAH BETHELI MONTANEZ MD February 28, 2020 22:01
--- NOTE | 2020-02-28 22:08 | PN ---
DATE: 02/28/2020 PSYCHIATRIC PROGRESS NOTE This note covers elements not covered in my initial note 02/28/2020. SUBJECTIVE: I met with the patient evening of 02/28/2020. No audiovisual rounds and staffed at a treatment team meeting morning of 02/28/2020. Per RAFAELA Paula had treatment team meeting. Appetite 50%, slept 6-1/2 hours. He was somewhat confused previous evening and during the day today is asking female nursing staff to get into bed with him. This seemed to be more of a sense of humor per the nursing staff involved rather than any aggressive sexual behavior. Also discussed with Valeri Pereira RN in the evening. He has been less sedated during the day. REVIEW OF SYSTEMS: Ambulation impaired, in wheelchair. No CV, , pulmonary, eye system symptoms on review. MENTAL STATUS EXAM: Oriented to himself and situation. Speech has some latency, coherent, often responses monosyllabic. Abstraction fair, computation impaired, language function intact. Short term memory is impaired. No suicidal or homicidal ideation. LABORATORY DATA: Reviewed. IMPRESSION: Major depressive disorder, recurrent with psychotic features, mild cognitive impairment versus major neurocognitive disorder, Alzheimer, vascular with delusion, depression. Rest unchanged. PLAN: No change from initial note, gradually increase the Zoloft. Rest unchanged. Maintain Exelon patch and trazodone and we will reduce the Zyprexa down to 2.5 mg twice a day. Reviewed psychosocial history. The patient is living at home until recently with family checking in on him. He has been at the [facility] for residential care. Depending on his progress, we will decide what the most appropriate transition level of care would be for him. MAN Natalia BURLESON MD DR: DANIEL/glenn JOB#: [id number] / [id number]
[2020-02-29 05:50] VITALS: BP 150/72
[2020-02-29] MEDS: RIVASTIGMINE 4.6MG PATCH. TD SCH (08:26)
[2020-02-29] MEDS: NICOTINE 7MG PATCH. TD SCH (08:26)
[2020-02-29] MEDS: SERTRALINE 25 MG TABLET. PO SCH (08:27)
[2020-02-29] MEDS: POLYETHYLENE GLYCOL 3350 17 GM PACKET. PO SCH (08:27)
[2020-02-29] MEDS: CHOLECALCIFEROL (VITAMIN D3) 50,000 UNIT CAPSULE PO SCH (08:27)
[2020-02-29] MEDS: ASPIRIN ENTERIC COATED 81 MG TABLET.DR. PO SCH (08:27)
[2020-02-29] MEDS: OLANZapine 2.5 MG TABLET PO SCH (08:27)
[2020-02-29] MEDS: FOLIC ACID 1 MG TABLET PO SCH (08:27)
[2020-02-29] MEDS: CYANOCOBALAMIN (VITAMIN B-12) 250 MCG TABLET PO SCH (08:27)
[2020-02-29] MEDS: MULTIVITAMIN with MINERAL TABLET. PO SCH (08:27)
--- NOTE | 2020-02-29 11:43 | TX PLAN ---
Interdisciplinary Tx Plan Admission Information February 24, 2020 at 15:05 Legal Status (on Admission): Voluntary DPOA/Guardian Name: Tracy Godinez Contact Other Contact Name: Koffi Barragan Other Contact Verified Code Status: Full Code Allergies: Coded Allergies: caffeine (Verified Allergy, Unknown, 02/24/20) ranitidine (Verified Allergy, Unknown, 02/24/20) Diagnoses Primary Diagnosis: Major Neurocognitive D/O, Alzheimer's, Vascular with delusions/depressions Reasons for Admission: Aggressive, Combative, Confusion/Disoriented, Poor impulse control Problem in Patient's Words: Pt has been falling more and this last fall he actually broke something and has not been able to come back from it. Additional Admission Comments: According to the intake, pt is agitated, pulled out his catheter, lunged from the chair and grabbed staff, twisted staff arm, pinched nurse in the leg, hitting staff, and has insomnia Problems Active Problems: Drowsy Agitation Confusion Inactive Problems: Medication compliant Pt Strengths/Limitations Ability for Sims: Poor Cognitive Functioning/Ability: Poor Communication Skills/Ability: Fair Financial Resources: Fair Insight/Judgement: Poor Intellectual Ability: Fair Physical Health: Poor Social Skills: Poor Stability in Family: Fair Stability in School/Work: Poor Verbal Skills: Fair Discharge Criteria Discharge Criteria: Able meet basic life need, Adequate arrangements @DC, Verbal commit aftercare, Improved behavior, Improved mood/thought Preliminary Discharge Plan Preliminary DC Plan: Long-Term, Current Living Arrange. Special Precautions Fall Risk: Moderate Initial D/C Plan Pt will need to be re-evaluated for admission back to [facility]. Identified Discharge Needs: Needs to follow up with neurology Currently Utilized Resources Currently Utilized Resources/P: Primary Care Physician Referrals Community Resources: Neurology Identified Problems/Hx/Goals Objectives/Short-Term Goals Short Term Goals: Dec. Aggression, Dec. Outbursts, Medication Stabilization, Promote Coping Skill Short Term Goals in Patient's: I want to get back home. Interventions/Frequency Staff Interventions/Frequency&: Psychiatrist to assess pt 3x per week. Social Work to assess pt 2x per week. Nursing to assess and complete 15 minute checks daily. Encourage group participation in activities/1:1 time based on assessment/goals set by Activity Dept. 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 He then joined the [employer] and retired from the from there. He worked for [employer] doing mechanical work. 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
[2020-02-29 16:06] VITALS: BP 133/82
[2020-02-29] MEDS: TAMSULOSIN 0.4 MG CAP.ER.24H. PO SCH (19:59)
[2020-02-29] MEDS: ATORVASTATIN CALCIUM 20 MG TABLET PO SCH (19:59)
--- NOTE | 2020-02-29 22:17 | PDOC ---
Exam Note: Jay Note: Please also refer to the separate dictated note~for this date of service dictated separately.~Patient seen individually. Discussed the patient with Nursing staff reviewed the chart.~Reviewed interim history and current functioning. Reviewed vital signs,~Labs/ Radiology~and current medications noted below. Continue current treatment with the changes noted in the dictated addendum note Assessment: Vital Signs/I&O: Vital Signs Date Time Temp Pulse Resp B/P (MAP) Pulse Ox O2 Delivery O2 Flow Rate FiO2 02/29/20 20:36 98.1 92 02/29/20 16:06 78 16 133/82 (99) 02/26/20 06:25 Room Air I & O 02/28/20 02/28/20 02/29/20 15:00 23:00 07:00 Intake Total 480 ml 420 ml Output Total 600 ml Balance -120 ml 420 ml Current Medications: Meds: Current Medications Medications (Trade) Dose Ordered Sig/Nader Route PRN Reason Start Time Stop Time Status Last Admin Dose Admin Vitamin D (Vitamin D3) 50,000 unit WEEKLY PO 02/29/20 09:00 02/29/20 08:27 I have reviewed the current psychotropics carefully including drug interactions. Risk benefit ratio favors no change other than as noted in my dictated progress note. Diagnosis: Problems: (1) Medical clearance for psychiatric admission (2) Impulse control disorder, unspecified (3) Anxiety disorder, unspecified (4) Dementia, vascular, with depression (5) Dementia, vascular, with delusions (6) Dementia in Alzheimer's disease with depression (7) Dementia in Alzheimer's disease with delusions (8) Major neurocognitive disorder, due to vascular disease, with behavioral disturbance, mild (9) Major depressive disorder with psychotic features ELI BURLESON MD February 29, 2020 22:17
[2020-03-01 06:15] LABS: BASO % 1 % (0-3); EOS # 0.5 x10^3/uL (0.0-0.7); EOS % 7 % (0-3); HEMATOCRIT 34.5 % (39.0-53.0); HEMOGLOBIN 11.7 g/dL (13.0-17.5); LYMPH # 1.3 x10^3/uL (1.0-4.8); LYMPH % 19 % (24-48); MEAN CORPUSCULAR HEMOGLOBIN 31 pg (25-35); MEAN CORPUSCULAR HGB CONC 34 g/dL (31-37); MEAN CORPUSCULAR VOLUME 92 fL (79-100); MONO # 0.5 x10^3/uL (0.0-1.1); MONO % 7 % (0-9); NEUT # 4.6 x10^3uL (1.8-7.7); NEUT % 66 % (31-73); PLATELET COUNT 227 x10^3/uL (140-400); RED BLOOD COUNT 3.75 x10^6/uL (4.30-5.70); RED CELL DISTRIBUTION WIDTH 14.2 % (11.5-14.5); WHITE BLOOD COUNT 6.9 x10^3/uL (4.0-11.0)
[2020-03-01 06:24] VITALS: BP 134/73
[2020-03-01 06:28] LABS: ALBUMIN 2.6 g/dL (3.4-5.0); ALBUMIN/GLOBULIN RATIO 0.8 (1.0-1.7); CALCIUM 8.3 mg/dL (8.5-10.1); GFR 70.5; MAGNESIUM 2.1 mg/dL (1.8-2.4); POTASSIUM 3.9 mmol/L (3.5-5.1); TOTAL BILIRUBIN 0.9 mg/dL (0.2-1.0); TOTAL PROTEIN 5.9 g/dL (6.4-8.2)
[2020-03-01] MEDS: POLYETHYLENE GLYCOL 3350 17 GM PACKET. PO SCH (08:26)
[2020-03-01] MEDS: RIVASTIGMINE 4.6MG PATCH. TD SCH (08:27)
[2020-03-01] MEDS: NICOTINE 7MG PATCH. TD SCH (08:28)
[2020-03-01] MEDS: OLANZapine 2.5 MG TABLET PO SCH (08:28)
[2020-03-01] MEDS: CYANOCOBALAMIN (VITAMIN B-12) 250 MCG TABLET PO SCH (08:28)
[2020-03-01] MEDS: ASPIRIN ENTERIC COATED 81 MG TABLET.DR. PO SCH (08:29)
[2020-03-01] MEDS: MULTIVITAMIN with MINERAL TABLET. PO SCH (08:29)
[2020-03-01] MEDS: SERTRALINE 25 MG TABLET. PO SCH (08:29)
[2020-03-01] MEDS: FOLIC ACID 1 MG TABLET PO SCH (08:30)
[2020-03-01 15:47] VITALS: BP 122/76
[2020-03-01] MEDS: ATORVASTATIN CALCIUM 20 MG TABLET PO SCH (20:41)
[2020-03-01] MEDS: TAMSULOSIN 0.4 MG CAP.ER.24H. PO SCH (20:41)
--- NOTE | 2020-03-01 21:53 | PDOC ---
Exam Note: Jay Note: Please also refer to the separate dictated note~for this date of service dictated separately.~Patient seen individually. Discussed the patient with Nursing staff reviewed the chart.~Reviewed interim history and current functioning. Reviewed vital signs,~Labs/ Radiology~and current medications noted below. Continue current treatment with the changes noted in the dictated addendum note Assessment: Vital Signs/I&O: Vital Signs Date Time Temp Pulse Resp B/P (MAP) Pulse Ox O2 Delivery O2 Flow Rate FiO2 03/01/20 20:17 98.8 90 03/01/20 15:47 74 16 122/76 (91) 03/01/20 06:24 Room Air I & O 02/29/20 02/29/20 03/01/20 15:00 23:00 07:00 Intake Total 960 ml 60 ml Output Total 750 ml Balance 960 ml -690 ml Labs: Laboratory Tests Test 03/01/20 05:47 White Blood Count 6.9 x10^3/uL (4.0-11.0) Red Blood Count 3.75 x10^6/uL (4.30-5.70) L Hemoglobin 11.7 g/dL (13.0-17.5) L Hematocrit 34.5 % (39.0-53.0) L Mean Corpuscular Volume 92 fL (79-100) Mean Corpuscular Hemoglobin 31 pg (25-35) Mean Corpuscular Hemoglobin Concent 34 g/dL (31-37) Red Cell Distribution Width 14.2 % (11.5-14.5) Platelet Count 227 x10^3/uL (140-400) Neutrophils (%) (Auto) 66 % (31-73) Lymphocytes (%) (Auto) 19 % (24-48) L Monocytes (%) (Auto) 7 % (0-9) Eosinophils (%) (Auto) 7 % (0-3) H Basophils (%) (Auto) 1 % (0-3) Neutrophils # (Auto) 4.6 x10^3uL (1.8-7.7) Lymphocytes # (Auto) 1.3 x10^3/uL (1.0-4.8) Monocytes # (Auto) 0.5 x10^3/uL (0.0-1.1) Eosinophils # (Auto) 0.5 x10^3/uL (0.0-0.7) Basophils # (Auto) 0.0 x10^3/uL (0.0-0.2) Sodium Level 138 mmol/L (136-145) Potassium Level 3.9 mmol/L (3.5-5.1) Chloride Level 104 mmol/L (98-107) Carbon Dioxide Level 29 mmol/L (21-32) Anion Gap 5 (6-14) L Blood Urea Nitrogen 25 mg/dL (8-26) Creatinine 1.0 mg/dL (0.7-1.3) Estimated GFR (Cockcroft-Gault) 70.5 BUN/Creatinine Ratio 25 (6-20) H Glucose Level 92 mg/dL (70-99) Calcium Level 8.3 mg/dL (8.5-10.1) L Magnesium Level 2.1 mg/dL (1.8-2.4) Total Bilirubin 0.9 mg/dL (0.2-1.0) Aspartate Amino Transferase (AST) 23 U/L (15-37) Alanine Aminotransferase (ALT) 37 U/L (16-63) Alkaline Phosphatase 82 U/L (46-116) Total Protein 5.9 g/dL (6.4-8.2) L Albumin 2.6 g/dL (3.4-5.0) L Albumin/Globulin Ratio 0.8 (1.0-1.7) L Current Medications: Meds: Current Medications Medications (Trade) Dose Ordered Sig/Nader Route PRN Reason Start Time Stop Time Status Last Admin Dose Admin Olanzapine (ZyPREXA) 2.5 mg DAILY PO 03/01/20 09:00 03/04/20 08:59 03/01/20 08:28 I have reviewed the current psychotropics carefully including drug interactions. Risk benefit ratio favors no change other than as noted in my dictated progress note. Diagnosis: Problems: (1) Impulse control disorder, unspecified (2) Anxiety disorder, unspecified (3) Dementia, vascular, with depression (4) Dementia, vascular, with delusions (5) Dementia in Alzheimer's disease with depression (6) Dementia in Alzheimer's disease with delusions (7) Major neurocognitive disorder, due to vascular disease, with behavioral disturbance, mild (8) Major depressive disorder with psychotic features ELI BURLESON MD March 01, 2020 21:53
[2020-03-02 05:13] VITALS: BP 142/85
[2020-03-02] MEDS: OLANZapine 2.5 MG TABLET PO SCH (08:14)
[2020-03-02] MEDS: FOLIC ACID 1 MG TABLET PO SCH (08:15)
[2020-03-02] MEDS: MULTIVITAMIN with MINERAL TABLET. PO SCH (08:15)
[2020-03-02] MEDS: CYANOCOBALAMIN (VITAMIN B-12) 250 MCG TABLET PO SCH (08:15)
[2020-03-02] MEDS: ASPIRIN ENTERIC COATED 81 MG TABLET.DR. PO SCH (08:15)
[2020-03-02] MEDS: SERTRALINE 25 MG TABLET. PO SCH (08:15)
[2020-03-02] MEDS: POLYETHYLENE GLYCOL 3350 17 GM PACKET. PO SCH (08:16)
[2020-03-02] MEDS: RIVASTIGMINE 4.6MG PATCH. TD SCH (08:16)
[2020-03-02] MEDS: NICOTINE 7MG PATCH. TD SCH (08:16)
--- NOTE | 2020-03-02 14:33 | CONS ---
DATE OF CONSULTATION: REASON FOR CONSULTATION: Medical management. HISTORY OF PRESENT ILLNESS: The patient is an 89-year-old male patient who was referred to [facility] from [facility] by his primary care physician on account of worsening confusion, paranoia, agitation. He was pulling out his catheter, lunging from his wheelchair and had a fall. As a consequence of this, he was yelling and hitting at staff, yelling at peers, pinching other, worsening confusion, worsening psychotic symptoms. He apparently has failed outpatient psychiatric intervention. His behaviors were deemed dangerous, unmanageable at the facility resulting in transferring him to [facility]. Unfortunately, the patient is extremely demented and does not really give any useful information. PAST MEDICAL HISTORY: Significant for chronic obstructive pulmonary disease, benign prostatic hypertrophy, has multiple compression fractures of spinal vertebra. He has a history of V-tach with a pacemaker in place, history of seizure disorder. He normally ambulates with a wheelchair. PAST SURGICAL HISTORY: Significant for permanent pacemaker placement. ALLERGIES: He is allergic to CAFFEINE and RANITIDINE. MEDICATIONS: He is currently on following medications: He is on rivastigmine for Exelon 4.6 mg patch apply topically once a day, tamsulosin 0.8 mg at bedtime, atorvastatin calcium 40 mg at bedtime, nitroglycerin 0.4 mg sublingual every 5 minutes x 3, aspirin 81 mg once a day, oxycodone 5 mg every 4 hours as needed, trazodone 50 mg at bedtime, olanzapine 10 mg twice a day, Colace 100 mg twice a day, polyethylene glycol 17 grams daily, cyanocobalamin 500 mcg once a day and folic acid 800 mcg once a day, multivitamin 1 tablet once a day. FAMILY HISTORY: Noncontributory. SOCIAL HISTORY: He is apparently residing at [facility]. He does not smoke, drink alcohol or use any recreational drugs. PHYSICAL EXAMINATION: GENERAL: On examining him, he looked well and was clearly in no apparent respiratory distress. No pallor, jaundice or cyanosis. No lymphadenopathy, no thyromegaly. No jugular venous distention. No limb edema. VITAL SIGNS: His heart rate was 76, blood pressure was 144/78, temperature was 97.7, respiratory rate 20, and oxygen saturation was 92% on room air. HEAD, EYES, EARS, NOSE AND THROAT: Showed he is normocephalic, atraumatic. NECK: Supple. CARDIAC: Normal first and second sounds. No gallop, rub or murmur. CHEST: Clear to auscultation. No crepitation or rhonchi. ABDOMEN: Distended, soft, nontender. NEUROLOGIC: He is demented, but without any obvious lateralizing sign. All his cranial nerves are intact. He moves extremities spontaneously; however, he is mostly wheelchair bound. LABORATORY DATA: His lab work on admission showed a white cell count of 8000, hemoglobin 14, hematocrit 41, MCV 93, and platelet count 280,000. His lab work on admission showed a serum sodium 141, potassium 3.7, chloride 102, bicarbonate 27, anion gap of 12, BUN 33, creatinine 1.5, estimated GFR was 44 mL per minute, his glucose 134. His calcium was 8.8, magnesium 2.3. His serum iron, TIBC and iron saturation are all low, indicating that he has anemia of chronic disease. His total bilirubin, AST, ALT, alkaline phosphatase were normal. Total protein was 6.7, albumin was 3.3. Serum triglycerides were 129, total cholesterol 127, LDL cholesterol was 62, VLDL was 25, HDL was 87 and the ratio was 3. His vitamin B12 was 1763. His TSH was normal at 3.38. His total T4 and total T3 are all within normal range. His urinalysis showed the urine was arlyn, cloudy with a pH of 5.5, specific gravity of 1.030. There is a large amount of protein, negative for glucose, large amount of ketones, large amount of blood, negative for nitrite with trace of leukocyte esterase, more than 40 ____, 5-10 wbc's and moderate amount of bacteria. His treponema pallidum antibodies were nonreactive. ASSESSMENT AND PLAN: In summary, this is an 89-year-old male patient who was referred from [facility] by his primary care physician on account of worsening confusion, paranoia, agitation. His medical problems significant for chronic obstructive pulmonary disease, benign prostatic hypertrophy, has had a history of seizure disorder and has a history of V-tach with pacemaker placement. His lab work showed that he has chronic kidney disease with a BUN of 33, creatinine 1.5 and estimated GFR was 44 mL per minute. Urinalysis showed that he has 5-10 wbc's. ____, I am not really convinced that he has urinary tract infection, but we will send urine for culture and sensitivity. We will obviously monitor his kidney function as he has obviously elevated creatinine and BUN. He has an indwelling Link catheter and if the kidney function continued to worsen, might have to change the Link catheter or flush it to make sure that there is no obstructive uropathy. Thank you, Dr. Baltazar, for allowing me to participate in the care of this patient. COLTON DEAL MD DR: PATEL/glenn JOB#: [id number] / [id number]
[2020-03-02 15:35] VITALS: BP 132/64
[2020-03-02] MEDS: ATORVASTATIN CALCIUM 20 MG TABLET PO SCH (19:43)
[2020-03-02] MEDS: TAMSULOSIN 0.4 MG CAP.ER.24H. PO SCH (19:44)
--- NOTE | 2020-03-02 21:29 | PN ---
DATE: 02/29/2020 PSYCHIATRIC PROGRESS NOTE This late entry 02/29/2020 covers elements not covered in my initial note. SUBJECTIVE: I met with the patient evening of 02/29/2020. The patient was seen on audiovisual rounds. Per RAFAELA Banegas, the patient slept 8-1/4 hours previous night. He is pleasant, aware that he is in the hospital, aware of his date of , but felt the year was 1990. No overt psychotic symptoms despite reduction in his Zyprexa, which is planned to be discontinued in 3 days. REVIEW OF SYSTEMS: No CV, , pulmonary, eye, ENT system symptoms on review. MENTAL STATUS EXAMINATION: Oriented to himself and situation. Speech has some latency, coherent. Abstraction fair, computation impaired. Language function intact. Mood and affect withdrawn. LABORATORY DATA: Reviewed. IMPRESSION: Major depressive disorder with psychotic features, mild cognitive impairment. Rest unchanged. PLAN: No change from initial note. Taper and stop the scheduled Zyprexa. Maintain trazodone, Exelon, gradually increasing along with Zoloft. MAN Natalia BURLESON MD DR: DANIEL/glenn JOB#: [id number] / [id number]
--- NOTE | 2020-03-02 21:29 | PN ---
DATE: 03/01/2020 PSYCHIATRIC PROGRESS NOTE This late entry 03/01/2020 covers elements not covered in my initial note. SUBJECTIVE: I met with the patient evening of 03/01/2020. Per RAFAELA Banegas, the patient slept 9-1/4 hours previous night. He has been confused, but not aggressive, disruptive, compliant with medications. REVIEW OF SYSTEMS: No CV, , pulmonary, eye system symptoms on review. MENTAL STATUS EXAM: Oriented to himself and situation. Speech has some latency, coherent. Abstraction fair, computation impaired, language function intact. Mood and affect still somewhat depressed, anxious, but better than before. LABORATORY DATA: Reviewed. IMPRESSION: Unchanged from initial note. PLAN: No change from initial note. MAN Natalia BURLESON MD DR: DANIEL/glenn JOB#: [id number] / [id number]
--- NOTE | 2020-03-02 21:36 | PN ---
DATE: 03/02/2020 PSYCHIATRIC PROGRESS NOTE This note covers elements not covered in my initial note 03/02. SUBJECTIVE: I met with the patient on audiovisual rounds in the evening and staffed at a treatment team meeting with the entire team in the morning. Per RAFAELA Garcia, the patient slept 6-3/4 hours previous night. He has had no aggressive-disruptive behaviors, remained somewhat withdrawn, ate nothing for lunch or dinner and I addressed this with him individually, encouraging him to force himself to eat whenever he can and he is agreeable to this. REVIEW OF SYSTEMS: Ambulation impaired. No CV, , pulmonary, eye system symptoms on review. MENTAL STATUS EXAM: Oriented to himself and situation. Speech is coherent, has some latency. Abstraction fair, computation impaired, language function intact, attention span short. Mood and affect withdrawn. LABORATORY DATA: Reviewed. IMPRESSION: Major depressive disorder, recurrent; major neurocognitive disorder, Alzheimer, vascular with depression, mild cognitive impairment. Rest unchanged. PLAN: No change from initial note. Taper and stop the scheduled Zyprexa. Increase the Exelon patch to 9.5 mg a day. Continue trazodone 50 mg at bedtime p.r.n. Zoloft increased from 25 mg a day to 50 mg a day. Rest unchanged for now. MAN Natalia BURLESON MD DR: DANIEL/glenn JOB#: [id number] / [id number]
--- NOTE | 2020-03-02 21:59 | PDOC ---
Exam Note: Jay Note: Please also refer to the separate dictated note~for this date of service dictated separately.~Patient seen individually. Discussed the patient with Nursing staff reviewed the chart.~Reviewed interim history and current functioning. Reviewed vital signs,~Labs/ Radiology~and current medications noted below. Continue current treatment with the changes noted in the dictated addendum note Assessment: Vital Signs/I&O: Vital Signs Date Time Temp Pulse Resp B/P (MAP) Pulse Ox O2 Delivery O2 Flow Rate FiO2 03/02/20 20:54 97.9 100 03/02/20 15:35 75 18 132/64 (86) 03/02/20 05:13 Room Air I & O 03/01/20 03/01/20 03/02/20 15:00 23:00 07:00 Intake Total 480 ml 480 ml Output Total 800 ml 450 ml Balance 480 ml -320 ml -450 ml Current Medications: Meds: Current Medications Medications (Trade) Dose Ordered Sig/Nader Route PRN Reason Start Time Stop Time Status Last Admin Dose Admin Sertraline HCl (Zoloft) 50 mg DAILY PO 03/02/20 09:00 03/02/20 08:15 I have reviewed the current psychotropics carefully including drug interactions. Risk benefit ratio favors no change other than as noted in my dictated progress note. Diagnosis: Problems: (1) Impulse control disorder, unspecified (2) Anxiety disorder, unspecified (3) Dementia, vascular, with depression (4) Dementia, vascular, with delusions (5) Dementia in Alzheimer's disease with depression (6) Dementia in Alzheimer's disease with delusions (7) Major neurocognitive disorder, due to vascular disease, with behavioral disturbance, mild (8) Major depressive disorder with psychotic features ELI BURLESON MD March 02, 2020 21:59
[2020-03-03 06:24] LABS: BASO % 1 % (0-3); EOS # 0.4 x10^3/uL (0.0-0.7); EOS % 7 % (0-3); HEMATOCRIT 35.9 % (39.0-53.0); HEMOGLOBIN 12.2 g/dL (13.0-17.5); LYMPH # 1.6 x10^3/uL (1.0-4.8); LYMPH % 27 % (24-48); MEAN CORPUSCULAR HEMOGLOBIN 31 pg (25-35); MEAN CORPUSCULAR HGB CONC 34 g/dL (31-37); MEAN CORPUSCULAR VOLUME 92 fL (79-100); MONO # 0.6 x10^3/uL (0.0-1.1); MONO % 11 % (0-9); NEUT # 3.3 x10^3uL (1.8-7.7); NEUT % 55 % (31-73); PLATELET COUNT 223 x10^3/uL (140-400); RED BLOOD COUNT 3.92 x10^6/uL (4.30-5.70); RED CELL DISTRIBUTION WIDTH 14.9 % (11.5-14.5)
[2020-03-03 06:33] VITALS: BP 103/57
[2020-03-03 06:41] LABS: ALBUMIN 2.7 g/dL (3.4-5.0); ALBUMIN/GLOBULIN RATIO 0.8 (1.0-1.7); CALCIUM 8.4 mg/dL (8.5-10.1); CREATININE 1.2 mg/dL (0.7-1.3); GFR 57.1; POTASSIUM 4.2 mmol/L (3.5-5.1); TOTAL BILIRUBIN 0.7 mg/dL (0.2-1.0)
[2020-03-03] MEDS: NICOTINE 7MG PATCH. TD SCH (08:58)
[2020-03-03] MEDS: POLYETHYLENE GLYCOL 3350 17 GM PACKET. PO SCH (08:58)
[2020-03-03] MEDS: MULTIVITAMIN with MINERAL TABLET. PO SCH (08:59)
[2020-03-03] MEDS: OLANZapine 2.5 MG TABLET PO SCH (08:59)
[2020-03-03] MEDS: CYANOCOBALAMIN (VITAMIN B-12) 250 MCG TABLET PO SCH (08:59)
[2020-03-03] MEDS: FOLIC ACID 1 MG TABLET PO SCH (08:59)
[2020-03-03] MEDS: RIVASTIGMINE 4.6MG PATCH. TD SCH (08:59)
[2020-03-03] MEDS: ASPIRIN ENTERIC COATED 81 MG TABLET.DR. PO SCH (08:59)
[2020-03-03] MEDS: SERTRALINE 25 MG TABLET. PO SCH (08:59)
[2020-03-03 16:24] VITALS: BP 147/86
[2020-03-03] MEDS: TAMSULOSIN 0.4 MG CAP.ER.24H. PO SCH (20:14)
[2020-03-03] MEDS: ATORVASTATIN CALCIUM 20 MG TABLET PO SCH (20:14)
[2020-03-03] MEDS: TERAZOSIN 5 MG CAPSULE. PO SCH (20:15)
--- NOTE | 2020-03-03 22:08 | PDOC ---
Exam Note: Jay Note: Please also refer to the separate dictated note~for this date of service dictated separately.~Patient seen individually. Discussed the patient with Nursing staff reviewed the chart.~Reviewed interim history and current functioning. Reviewed vital signs,~Labs/ Radiology~and current medications noted below. Continue current treatment with the changes noted in the dictated addendum note Assessment: Vital Signs/I&O: Vital Signs Date Time Temp Pulse Resp B/P (MAP) Pulse Ox O2 Delivery O2 Flow Rate FiO2 03/03/20 20:15 80 147/86 03/03/20 20:00 97.9 91 Room Air 03/03/20 16:24 20 I & O 03/02/20 03/02/20 03/03/20 15:00 23:00 07:00 Intake Total 240 ml Output Total 725 ml Balance 240 ml -725 ml Labs: Laboratory Tests Test 03/03/20 06:02 White Blood Count 6.0 x10^3/uL (4.0-11.0) Red Blood Count 3.92 x10^6/uL (4.30-5.70) L Hemoglobin 12.2 g/dL (13.0-17.5) L Hematocrit 35.9 % (39.0-53.0) L Mean Corpuscular Volume 92 fL (79-100) Mean Corpuscular Hemoglobin 31 pg (25-35) Mean Corpuscular Hemoglobin Concent 34 g/dL (31-37) Red Cell Distribution Width 14.9 % (11.5-14.5) H Platelet Count 223 x10^3/uL (140-400) Neutrophils (%) (Auto) 55 % (31-73) Lymphocytes (%) (Auto) 27 % (24-48) Monocytes (%) (Auto) 11 % (0-9) H Eosinophils (%) (Auto) 7 % (0-3) H Basophils (%) (Auto) 1 % (0-3) Neutrophils # (Auto) 3.3 x10^3uL (1.8-7.7) Lymphocytes # (Auto) 1.6 x10^3/uL (1.0-4.8) Monocytes # (Auto) 0.6 x10^3/uL (0.0-1.1) Eosinophils # (Auto) 0.4 x10^3/uL (0.0-0.7) Basophils # (Auto) 0.0 x10^3/uL (0.0-0.2) Sodium Level 141 mmol/L (136-145) Potassium Level 4.2 mmol/L (3.5-5.1) Chloride Level 105 mmol/L (98-107) Carbon Dioxide Level 31 mmol/L (21-32) Anion Gap 5 (6-14) L Blood Urea Nitrogen 24 mg/dL (8-26) Creatinine 1.2 mg/dL (0.7-1.3) Estimated GFR (Cockcroft-Gault) 57.1 BUN/Creatinine Ratio 20 (6-20) Glucose Level 92 mg/dL (70-99) Calcium Level 8.4 mg/dL (8.5-10.1) L Total Bilirubin 0.7 mg/dL (0.2-1.0) Aspartate Amino Transferase (AST) 22 U/L (15-37) Alanine Aminotransferase (ALT) 35 U/L (16-63) Alkaline Phosphatase 84 U/L (46-116) Total Protein 6.0 g/dL (6.4-8.2) L Albumin 2.7 g/dL (3.4-5.0) L Albumin/Globulin Ratio 0.8 (1.0-1.7) L Current Medications: Meds: Current Medications Medications (Trade) Dose Ordered Sig/Nader Route PRN Reason Start Time Stop Time Status Last Admin Dose Admin Terazosin HCl (Hytrin) 5 mg QHS PO 03/03/20 21:00 03/03/20 20:15 I have reviewed the current psychotropics carefully including drug interactions. Risk benefit ratio favors no change other than as noted in my dictated progress note. 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
[2020-03-04 06:25] VITALS: BP 134/82
[2020-03-04] MEDS: ASPIRIN ENTERIC COATED 81 MG TABLET.DR. PO SCH (08:10)
[2020-03-04] MEDS: POLYETHYLENE GLYCOL 3350 17 GM PACKET. PO SCH (08:11)
[2020-03-04] MEDS: RIVASTIGMINE 4.6MG PATCH. TD SCH (08:11)
[2020-03-04] MEDS: FOLIC ACID 1 MG TABLET PO SCH (08:11)
[2020-03-04] MEDS: CYANOCOBALAMIN (VITAMIN B-12) 250 MCG TABLET PO SCH (08:11)
[2020-03-04] MEDS: MULTIVITAMIN with MINERAL TABLET. PO SCH (08:11)
[2020-03-04] MEDS: SERTRALINE 25 MG TABLET. PO SCH (08:11)
[2020-03-04] MEDS: NICOTINE 7MG PATCH. TD SCH (08:12)
[2020-03-04 16:03] VITALS: BP 119/75
[2020-03-04] MEDS: TAMSULOSIN 0.4 MG CAP.ER.24H. PO SCH (19:20)
[2020-03-04] MEDS: TERAZOSIN 5 MG CAPSULE. PO SCH (19:20)
[2020-03-04] MEDS: ATORVASTATIN CALCIUM 20 MG TABLET PO SCH (19:20)
--- NOTE | 2020-03-04 22:16 | PDOC ---
Exam Note: Jay Note: Please also refer to the separate dictated note~for this date of service dictated separately.~Patient seen individually. Discussed the patient with Nursing staff reviewed the chart.~Reviewed interim history and current functioning. Reviewed vital signs,~Labs/ Radiology~and current medications noted below. Continue current treatment with the changes noted in the dictated addendum note Assessment: Vital Signs/I&O: Vital Signs Date Time Temp Pulse Resp B/P (MAP) Pulse Ox O2 Delivery O2 Flow Rate FiO2 03/04/20 20:25 98.1 93 03/04/20 19:20 77 119/75 03/04/20 16:03 18 Room Air I & O 03/03/20 03/03/20 03/04/20 15:00 23:00 07:00 Intake Total 720 ml 240 ml Output Total 450 ml Balance 720 ml 240 ml -450 ml Current Medications: I have reviewed the current psychotropics carefully including drug interactions. Risk benefit ratio favors no change other than as noted in my dictated progress note. 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
[2020-03-05 05:44] VITALS: BP 130/69
[2020-03-05] MEDS: FOLIC ACID 1 MG TABLET PO SCH (08:21)
[2020-03-05] MEDS: MULTIVITAMIN with MINERAL TABLET. PO SCH (08:21)
[2020-03-05] MEDS: CYANOCOBALAMIN (VITAMIN B-12) 250 MCG TABLET PO SCH (08:21)
[2020-03-05] MEDS: POLYETHYLENE GLYCOL 3350 17 GM PACKET. PO SCH (08:21)
[2020-03-05] MEDS: ASPIRIN ENTERIC COATED 81 MG TABLET.DR. PO SCH (08:21)
[2020-03-05] MEDS: NICOTINE 7MG PATCH. TD SCH (08:22)
[2020-03-05] MEDS: SERTRALINE 25 MG TABLET. PO SCH (08:22)
[2020-03-05] MEDS: RIVASTIGMINE 4.6MG PATCH. TD SCH (08:22)
[2020-03-05 09:19] LABS: BASO % 1 % (0-3); EOS # 0.3 x10^3/uL (0.0-0.7); EOS % 4 % (0-3); HEMOGLOBIN 13.1 g/dL (13.0-17.5); LYMPH # 1.7 x10^3/uL (1.0-4.8); LYMPH % 22 % (24-48); MEAN CORPUSCULAR HEMOGLOBIN 31 pg (25-35); MEAN CORPUSCULAR HGB CONC 34 g/dL (31-37); MEAN CORPUSCULAR VOLUME 92 fL (79-100); MONO # 0.5 x10^3/uL (0.0-1.1); MONO % 6 % (0-9); NEUT # 5.2 x10^3uL (1.8-7.7); NEUT % 67 % (31-73); PLATELET COUNT 212 x10^3/uL (140-400); RED BLOOD COUNT 4.23 x10^6/uL (4.30-5.70); RED CELL DISTRIBUTION WIDTH 14.8 % (11.5-14.5); WHITE BLOOD COUNT 7.8 x10^3/uL (4.0-11.0)
[2020-03-05 09:32] LABS: ALBUMIN 3.2 g/dL (3.4-5.0); ALBUMIN/GLOBULIN RATIO 0.9 (1.0-1.7); CALCIUM 8.6 mg/dL (8.5-10.1); CREATININE 1.3 mg/dL (0.7-1.3); GFR 52.1; POTASSIUM 4.1 mmol/L (3.5-5.1); TOTAL BILIRUBIN 0.9 mg/dL (0.2-1.0); TOTAL PROTEIN 6.7 g/dL (6.4-8.2)
[2020-03-05 16:09] VITALS: BP 144/84
[2020-03-05] MEDS: oxyCODONE IR 5 MG TABLET PO PRN (17:06)
--- NOTE | 2020-03-05 19:50 | PN ---
DATE: 03/04/2020 PSYCHIATRIC PROGRESS NOTE This late entry 03/04/2020 covers elements not covered in my initial note. SUBJECTIVE: I met with the patient evening of 03/04/2020 on telehealth rounds. Per RAFAELA Paula, the patient slept 8-1/2 hours previous night. He remains somewhat withdrawn, but otherwise appropriate. Appetite remains poor, but improving. REVIEW OF SYSTEMS: No CV, , pulmonary, eye system symptoms on review. Ambulation impaired, lying in bed as I met with him. MENTAL STATUS EXAM: Oriented to himself and situation. Speech has some latency, coherent, often responses monosyllabic. Abstraction fair, computation impaired, language function intact. Mood and affect somewhat withdrawn. No psychotic symptoms, suicidal or homicidal ideation. LABORATORY DATA: Reviewed. IMPRESSION: Unchanged from initial note. PLAN: No change from initial note. MAN Natalia BURLESON MD DR: DANIEL/glenn JOB#: [id number] / [id number]
--- NOTE | 2020-03-05 19:50 | PN ---
DATE: 03/03/2020 PSYCHIATRIC PROGRESS NOTE This late entry 03/03/2020 covers elements not covered in my initial note. SUBJECTIVE: Per Jose RN, the patient slept 7 hours previous night. He gets somewhat confused, pulled out his catheter previous night, somewhat withdrawn to his room, did eat breakfast, nothing for lunch. I met the patient on telehealth rounds in the evening. REVIEW OF SYSTEMS: Positive for some tiredness. No CV, , pulmonary, eye system symptoms on review. Ambulation impaired, in wheelchair. MENTAL STATUS EXAM: Oriented to himself and situation. Speech has some latency, coherent, often responses monosyllabic. Abstraction fair, computation impaired, language function intact, attention span short. Mood and affect withdrawn, but no clear psychotic symptoms despite discontinuing the Zyprexa. LABORATORY DATA: Reviewed. IMPRESSION: Major depressive disorder with psychotic features, mild cognitive impairment; anxiety disorder, unspecified; impulse control disorder, unspecified. Rest unchanged. PLAN: No change from initial note. We will carefully monitor his appetite. May need to add something to stimulate it if it continues to be poor. Rest unchanged. Maintain Exelon patch, trazodone, Zoloft MAN Natalia BURLESON MD DR: DANIEL/glenn JOB#: [id number] / [id number]
[2020-03-05] MEDS: TERAZOSIN 5 MG CAPSULE. PO SCH (20:53)
[2020-03-05] MEDS: ATORVASTATIN CALCIUM 20 MG TABLET PO SCH (20:53)
[2020-03-05] MEDS: TAMSULOSIN 0.4 MG CAP.ER.24H. PO SCH (20:54)
--- NOTE | 2020-03-05 22:20 | PDOC ---
Exam Note: Jay Note: Please also refer to the separate dictated note~for this date of service dictated separately.~Patient seen individually. Discussed the patient with Nursing staff reviewed the chart.~Reviewed interim history and current functioning. Reviewed vital signs,~Labs/ Radiology~and current medications noted below. Continue current treatment with the changes noted in the dictated addendum note Assessment: Vital Signs/I&O: Vital Signs Date Time Temp Pulse Resp B/P (MAP) Pulse Ox O2 Delivery O2 Flow Rate FiO2 03/05/20 20:53 83 144/84 03/05/20 18:15 20 03/05/20 16:09 97.7 94 Room Air I & O 03/04/20 03/04/20 03/05/20 15:00 23:00 07:00 Intake Total 480 ml 360 ml Output Total 525 ml Balance 480 ml 360 ml -525 ml Labs: Laboratory Tests Test 03/05/20 09:00 White Blood Count 7.8 x10^3/uL (4.0-11.0) Red Blood Count 4.23 x10^6/uL (4.30-5.70) L Hemoglobin 13.1 g/dL (13.0-17.5) Hematocrit 39.0 % (39.0-53.0) Mean Corpuscular Volume 92 fL (79-100) Mean Corpuscular Hemoglobin 31 pg (25-35) Mean Corpuscular Hemoglobin Concent 34 g/dL (31-37) Red Cell Distribution Width 14.8 % (11.5-14.5) H Platelet Count 212 x10^3/uL (140-400) Neutrophils (%) (Auto) 67 % (31-73) Lymphocytes (%) (Auto) 22 % (24-48) L Monocytes (%) (Auto) 6 % (0-9) Eosinophils (%) (Auto) 4 % (0-3) H Basophils (%) (Auto) 1 % (0-3) Neutrophils # (Auto) 5.2 x10^3uL (1.8-7.7) Lymphocytes # (Auto) 1.7 x10^3/uL (1.0-4.8) Monocytes # (Auto) 0.5 x10^3/uL (0.0-1.1) Eosinophils # (Auto) 0.3 x10^3/uL (0.0-0.7) Basophils # (Auto) 0.0 x10^3/uL (0.0-0.2) Sodium Level 138 mmol/L (136-145) Potassium Level 4.1 mmol/L (3.5-5.1) Chloride Level 101 mmol/L (98-107) Carbon Dioxide Level 28 mmol/L (21-32) Anion Gap 9 (6-14) Blood Urea Nitrogen 30 mg/dL (8-26) H Creatinine 1.3 mg/dL (0.7-1.3) Estimated GFR (Cockcroft-Gault) 52.1 BUN/Creatinine Ratio 23 (6-20) H Glucose Level 162 mg/dL (70-99) H Calcium Level 8.6 mg/dL (8.5-10.1) Total Bilirubin 0.9 mg/dL (0.2-1.0) Aspartate Amino Transferase (AST) 25 U/L (15-37) Alanine Aminotransferase (ALT) 38 U/L (16-63) Alkaline Phosphatase 103 U/L (46-116) Total Protein 6.7 g/dL (6.4-8.2) Albumin 3.2 g/dL (3.4-5.0) L Albumin/Globulin Ratio 0.9 (1.0-1.7) L Current Medications: I have reviewed the current psychotropics carefully including drug interactions. Risk benefit ratio favors no change other than as noted in my dictated progress note. 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
[2020-03-06 05:47] VITALS: BP 128/73
[2020-03-06 07:02] LABS: BILIRUBIN,URINE NEG (NEG); CLARITY,URINE TURBID; COLOR,URINE YELLOW; GLUCOSE,URINE NEG (NEG)
[2020-03-06 07:03] LABS: AMORPHOUS SEDIMENT,UR PRESENT /HPF; BACTERIA,URINE MANY /HPF (0-FEW); NITRITE,URINE POS (NEG)
[2020-03-06] MEDS: ASPIRIN ENTERIC COATED 81 MG TABLET.DR. PO SCH (08:21)
[2020-03-06] MEDS: MULTIVITAMIN with MINERAL TABLET. PO SCH (08:21)
[2020-03-06] MEDS: FOLIC ACID 1 MG TABLET PO SCH (08:21)
[2020-03-06] MEDS: CYANOCOBALAMIN (VITAMIN B-12) 250 MCG TABLET PO SCH (08:21)
[2020-03-06] MEDS: NICOTINE 7MG PATCH. TD SCH (08:22)
[2020-03-06] MEDS: RIVASTIGMINE 4.6MG PATCH. TD SCH (08:22)
[2020-03-06] MEDS: SERTRALINE 25 MG TABLET. PO SCH (08:22)
[2020-03-06] MEDS: POLYETHYLENE GLYCOL 3350 17 GM PACKET. PO SCH (09:00)
--- NOTE | 2020-03-06 12:44 | TX PLAN ---
Interdisciplinary Tx Plan Admission Information February 24, 2020 at 15:05 Legal Status (on Admission): Voluntary DPOA/Guardian Name: Tracy Godinez Contact Other Contact Name: Koffi Barragan Other Contact Verified Code Status: Full Code Allergies: Coded Allergies: caffeine (Verified Allergy, Unknown, 02/24/20) ranitidine (Verified Allergy, Unknown, 02/24/20) Diagnoses Primary Diagnosis: Major Neurocognitive D/O, Alzheimer's, Vascular with delusions/depressions Reasons for Admission: Aggressive, Combative, Confusion/Disoriented, Poor impulse control Problem in Patient's Words: Pt has been falling more and this last fall he actually broke something and has not been able to come back from it. Additional Admission Comments: According to the intake, pt is agitated, pulled out his catheter, lunged from the chair and grabbed staff, twisted staff arm, pinched nurse in the leg, hitting staff, and has insomnia Problems Active Problems: Drowsy Agitation Confusion Inactive Problems: Medication compliant Pt Strengths/Limitations Ability for [place]: Poor Cognitive Functioning/Ability: Poor Communication Skills/Ability: Fair Financial Resources: Fair Insight/Judgement: Poor Intellectual Ability: Fair Physical Health: Poor Social Skills: Poor Stability in Family: Fair Stability in School/Work: Poor Verbal Skills: Fair Discharge Criteria Discharge Criteria: Able meet basic life need, Adequate arrangements @DC, Verbal commit aftercare, Improved behavior, Improved mood/thought Preliminary Discharge Plan Preliminary DC Plan: [facility], Current Living Arrange. Special Precautions Fall Risk: Moderate Initial D/C Plan [facility] Identified Discharge Needs: Needs to follow up with neurology Currently Utilized Resources Currently Utilized Resources/P: Primary Care Physician Referrals Community Resources: Neurology Identified Problems/Hx/Goals Objectives/Short-Term Goals Short Term Goals: Dec. Aggression, Dec. Outbursts, Medication Stabilization, Promote Coping Skill Short Term Goals in Patient's: I want to get back home. Interventions/Frequency Staff Interventions/Frequency&: Psychiatrist to assess pt 3x per week. Social Work to assess pt 2x per week. Nursing to assess and complete 15 minute checks daily. Encourage group participation in activities/1:1 time based on assessment/goals set by Activity Dept. 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 He then joined the [employer] and retired from the from there. He worked for [employer] doing mechanical work. 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 Pt is interactive with staff; however, does not appear to attend any group activities. Pt family has requested to have a head CT completed to determine if pt does have some form of Dementia as he does have moments of confusion and he refused to stay at the neurologist appointment. Pt will have an increase in Zoloft 75mg q daily. Pt can discharge come the end of this week either back to [facility] for rehab or a different facility of pt preference, as he is not quite ready to return home alone. CRISELDA VALVERDE March 06, 2020 12:44
[2020-03-06 16:19] VITALS: BP 106/72
[2020-03-06] MEDS: ATORVASTATIN CALCIUM 20 MG TABLET PO SCH (21:08)
[2020-03-06] MEDS: TAMSULOSIN 0.4 MG CAP.ER.24H. PO SCH (21:08)
[2020-03-06] MEDS: TERAZOSIN 5 MG CAPSULE. PO SCH (21:14)
--- NOTE | 2020-03-06 22:13 | PDOC ---
Exam Note: Jay Note: Please also refer to the separate dictated note~for this date of service dictated separately.~Patient seen individually. Discussed the patient with Nursing staff reviewed the chart.~Reviewed interim history and current functioning. Reviewed vital signs,~Labs/ Radiology~and current medications noted below. Continue current treatment with the changes noted in the dictated addendum note Assessment: Vital Signs/I&O: Vital Signs Date Time Temp Pulse Resp B/P (MAP) Pulse Ox O2 Delivery O2 Flow Rate FiO2 03/06/20 21:14 84 111/64 03/06/20 16:19 97.7 18 93 03/06/20 05:47 Room Air I & O 03/05/20 03/05/20 03/06/20 15:00 23:00 07:00 Intake Total 480 ml 460 ml Output Total 650 ml Balance 480 ml 460 ml -650 ml Labs: Laboratory Tests Test 03/06/20 06:11 Urine Collection Type U cath Urine Color Yellow Urine Clarity Turbid Urine pH >8.5 Urine Specific [place] 1.010 Urine Protein >100 mg/dl (NEG-TRACE) Urine Glucose (UA) Neg mg/dL (NEG) Urine Ketones (Stick) Neg mg/dL (NEG) Urine Blood Large (NEG) Urine Nitrite Pos (NEG) Urine Bilirubin Neg (NEG) Urine Urobilinogen Dipstick 1.0 mg/dL (0.2 mg/dL) Urine Leukocyte Esterase Large (NEG) Urine RBC 3-5 /HPF (0-2) Urine WBC 1-4 /HPF (0-4) Urine Amorphous Sediment Present /HPF Urine Bacteria Many /HPF (0-FEW) Current Medications: I have reviewed the current psychotropics carefully including drug interactions. Risk benefit ratio favors no change other than as noted in my dictated progress note. 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
[2020-03-07 06:17] VITALS: BP 116/72
[2020-03-07 06:55] LABS: BASO # 0.1 x10^3/uL (0.0-0.2); BASO % 1 % (0-3); EOS # 0.1 x10^3/uL (0.0-0.7); EOS % 1 % (0-3); HEMATOCRIT 32.9 % (39.0-53.0); HEMOGLOBIN 11.2 g/dL (13.0-17.5); LYMPH # 1.6 x10^3/uL (1.0-4.8); LYMPH % 17 % (24-48); MEAN CORPUSCULAR HEMOGLOBIN 31 pg (25-35); MEAN CORPUSCULAR HGB CONC 34 g/dL (31-37); MEAN CORPUSCULAR VOLUME 91 fL (79-100); MONO # 0.8 x10^3/uL (0.0-1.1); MONO % 8 % (0-9); NEUT # 7.2 x10^3uL (1.8-7.7); NEUT % 73 % (31-73); PLATELET COUNT 184 x10^3/uL (140-400); RED BLOOD COUNT 3.64 x10^6/uL (4.30-5.70); RED CELL DISTRIBUTION WIDTH 14.5 % (11.5-14.5); WHITE BLOOD COUNT 9.9 x10^3/uL (4.0-11.0)
[2020-03-07 07:05] LABS: ALBUMIN 2.6 g/dL (3.4-5.0); ALBUMIN/GLOBULIN RATIO 0.8 (1.0-1.7); CALCIUM 8.2 mg/dL (8.5-10.1); CREATININE 1.2 mg/dL (0.7-1.3); GFR 57.1; POTASSIUM 4.3 mmol/L (3.5-5.1); TOTAL BILIRUBIN 0.8 mg/dL (0.2-1.0); TOTAL PROTEIN 5.8 g/dL (6.4-8.2)
[2020-03-07] MEDS: SERTRALINE 25 MG TABLET. PO SCH (08:49)
[2020-03-07] MEDS: FOLIC ACID 1 MG TABLET PO SCH (08:49)
[2020-03-07] MEDS: POLYETHYLENE GLYCOL 3350 17 GM PACKET. PO SCH ×2 (08:50→09:00)
[2020-03-07] MEDS: MULTIVITAMIN with MINERAL TABLET. PO SCH (08:50)
[2020-03-07] MEDS: ASPIRIN ENTERIC COATED 81 MG TABLET.DR. PO SCH (08:50)
[2020-03-07] MEDS: CYANOCOBALAMIN (VITAMIN B-12) 250 MCG TABLET PO SCH (08:50)
[2020-03-07] MEDS: CHOLECALCIFEROL (VITAMIN D3) 50,000 UNIT CAPSULE PO SCH (08:50)
[2020-03-07] MEDS: RIVASTIGMINE 4.6MG PATCH. TD SCH (08:51)
[2020-03-07] MEDS: NICOTINE 7MG PATCH. TD SCH (08:51)
[2020-03-07 15:36] VITALS: BP 132/84
[2020-03-07] MEDS: TAMSULOSIN 0.4 MG CAP.ER.24H. PO SCH (19:43)
[2020-03-07] MEDS: TERAZOSIN 5 MG CAPSULE. PO SCH (19:43)
[2020-03-07] MEDS: ATORVASTATIN CALCIUM 20 MG TABLET PO SCH (19:43)
[2020-03-07] MEDS: CYPROHEPTADINE 4 MG TABLET. PO SCH (19:45)
--- NOTE | 2020-03-07 21:27 | PN ---
DATE: 03/05/2020 PSYCHIATRIC PROGRESS NOTE This late entry 03/05/2020 covers elements not covered in my initial note. SUBJECTIVE: I met with the patient evening of 03/05/2020. The patient was seen on telehealth rounds in the evening. The patient slept 8-1/2 hours previous night. He remains somewhat withdrawn, has a good sense of humor per Nisa RN. REVIEW OF SYSTEMS: Ambulation impaired. No CV, , pulmonary, eye system symptoms on review. MENTAL STATUS EXAM: Oriented to himself and situation. Speech has some latency, coherent, often responses monosyllabic. Abstraction fair, computation impaired, language function intact, attention span short. Mood and affect withdrawn. LABORATORY DATA: Reviewed. IMPRESSION: Major depressive disorder, recurrent, in partial remission; mild cognitive impairment. Rest unchanged. PLAN: No change from initial note. Continue trazodone p.r.n., Zyprexa as scheduled has been stopped, Exelon patch increasing to 9.5 mg a day. Maintain Zoloft 50 mg a day. MAN Natalia BURLESON MD DR: DANIEL/glenn JOB#: [id number] / [id number]
--- NOTE | 2020-03-07 22:14 | PDOC ---
Exam Note: Jay Note: Please also refer to the separate dictated note~for this date of service dictated separately.~Patient seen individually. Discussed the patient with Nursing staff reviewed the chart.~Reviewed interim history and current functioning. Reviewed vital signs,~Labs/ Radiology~and current medications noted below. Continue current treatment with the changes noted in the dictated addendum note Assessment: Vital Signs/I&O: Vital Signs Date Time Temp Pulse Resp B/P (MAP) Pulse Ox O2 Delivery O2 Flow Rate FiO2 03/07/20 19:43 84 132/84 03/07/20 18:45 98.1 03/07/20 15:36 16 95 03/07/20 06:17 Room Air I & O 03/06/20 03/06/20 03/07/20 15:00 23:00 07:00 Intake Total 480 ml 240 ml 100 ml Output Total 550 ml Balance 480 ml 240 ml -450 ml Labs: Laboratory Tests Test 03/07/20 06:25 White Blood Count 9.9 x10^3/uL (4.0-11.0) Red Blood Count 3.64 x10^6/uL (4.30-5.70) L Hemoglobin 11.2 g/dL (13.0-17.5) L Hematocrit 32.9 % (39.0-53.0) L Mean Corpuscular Volume 91 fL (79-100) Mean Corpuscular Hemoglobin 31 pg (25-35) Mean Corpuscular Hemoglobin Concent 34 g/dL (31-37) Red Cell Distribution Width 14.5 % (11.5-14.5) Platelet Count 184 x10^3/uL (140-400) Neutrophils (%) (Auto) 73 % (31-73) Lymphocytes (%) (Auto) 17 % (24-48) L Monocytes (%) (Auto) 8 % (0-9) Eosinophils (%) (Auto) 1 % (0-3) Basophils (%) (Auto) 1 % (0-3) Neutrophils # (Auto) 7.2 x10^3uL (1.8-7.7) Lymphocytes # (Auto) 1.6 x10^3/uL (1.0-4.8) Monocytes # (Auto) 0.8 x10^3/uL (0.0-1.1) Eosinophils # (Auto) 0.1 x10^3/uL (0.0-0.7) Basophils # (Auto) 0.1 x10^3/uL (0.0-0.2) Sodium Level 137 mmol/L (136-145) Potassium Level 4.3 mmol/L (3.5-5.1) Chloride Level 101 mmol/L (98-107) Carbon Dioxide Level 30 mmol/L (21-32) Anion Gap 6 (6-14) Blood Urea Nitrogen 29 mg/dL (8-26) H Creatinine 1.2 mg/dL (0.7-1.3) Estimated GFR (Cockcroft-Gault) 57.1 BUN/Creatinine Ratio 24 (6-20) H Glucose Level 91 mg/dL (70-99) Calcium Level 8.2 mg/dL (8.5-10.1) L Total Bilirubin 0.8 mg/dL (0.2-1.0) Aspartate Amino Transferase (AST) 19 U/L (15-37) Alanine Aminotransferase (ALT) 27 U/L (16-63) Alkaline Phosphatase 82 U/L (46-116) Total Protein 5.8 g/dL (6.4-8.2) L Albumin 2.6 g/dL (3.4-5.0) L Albumin/Globulin Ratio 0.8 (1.0-1.7) L Current Medications: Meds: Current Medications Medications (Trade) Dose Ordered Sig/Nader Route PRN Reason Start Time Stop Time Status Last Admin Dose Admin Sertraline HCl (Zoloft) 75 mg DAILY PO 03/07/20 09:00 03/07/20 08:49 Cyproheptadine HCl (Periactin) 2 mg HS PO 03/07/20 21:00 03/07/20 19:45 I have reviewed the current psychotropics carefully including drug interactions. Risk benefit ratio favors no change other than as noted in my dictated progress note. Diagnosis: Problems: (1) Impulse control disorder, unspecified (2) Anxiety disorder, unspecified (3) Dementia, vascular, with depression (4) Dementia, vascular, with delusions (5) Dementia in Alzheimer's disease with depression (6) Dementia in Alzheimer's disease with delusions (7) Major neurocognitive disorder, due to vascular disease, with behavioral disturbance, mild (8) Major depressive disorder with psychotic features (9) Mild cognitive impairment SARAH BETH,MAN M MD March 07, 2020 22:14
--- NOTE | 2020-03-07 22:27 | PN ---
DATE: 03/06/2020 PSYCHIATRIC PROGRESS NOTE This late entry 03/06/2020 covers elements not covered in my initial note. SUBJECTIVE: I met with the patient evening of 03/06/2020 and staffed at a treatment team meeting with the entire team in the morning and with RAFAELA Paula. The patient slept 6-1/2 hours previous night, appetite 60%. UA has reflux to culture. We will check a CT head as workup of dementia as requested by family. REVIEW OF SYSTEMS: Ambulation impaired, in wheelchair. No CV, , pulmonary, eye system symptoms on review. MENTAL STATUS EXAMINATION: Oriented to himself and situation. Speech is coherent, has some latency. Abstraction fair, computation impaired. Language function intact. Mood and affect withdrawn. LABORATORY DATA: Reviewed. IMPRESSION: Major depressive disorder with psychotic features, mild cognitive impairment. Rest unchanged. PLAN: Check CT head. Increase Zoloft from 50 mg a day to 75 mg a day. Maintain Exelon patch, increasing to 9.5 mg a day, trazodone at bedtime p.r.n. insomnia. Repeat labs on the . MAN Natalia BURLESON MD DR: DANIEL/glenn JOB#: [id number] / [id number]
[2020-03-08 06:43] VITALS: BP 114/68
[2020-03-08] MEDS: SERTRALINE 25 MG TABLET. PO SCH (08:45)
[2020-03-08] MEDS: CYANOCOBALAMIN (VITAMIN B-12) 250 MCG TABLET PO SCH (08:45)
[2020-03-08] MEDS: MULTIVITAMIN with MINERAL TABLET. PO SCH (08:45)
[2020-03-08] MEDS: ASPIRIN ENTERIC COATED 81 MG TABLET.DR. PO SCH (08:45)
[2020-03-08] MEDS: FOLIC ACID 1 MG TABLET PO SCH (08:45)
[2020-03-08] MEDS: RIVASTIGMINE 4.6MG PATCH. TD SCH (08:45)
[2020-03-08] MEDS: NICOTINE 7MG PATCH. TD SCH (08:45)
[2020-03-08] MEDS: POLYETHYLENE GLYCOL 3350 17 GM PACKET. PO SCH (08:46)
--- NOTE | 2020-03-08 09:23 | PDOC ---
Exam Note: Jay Note: This note is a late entry for 03/07/2020 covers elements not covered in my initial note. SUBJECTIVE: The patient was seen on Telehealth services in the evening of 03/07/2020. Nursing report was with Annmarie RUSSO. Discussed the patient with nursing staff reviewed the chart. He slept 7-1/2 hours previous night. He is confused, withdrawn, poor appetite. We will add Periactin 2 mg h.s. He is oriented to place. He is compliant to medications. REVIEW OF SYSTEMS: Ambulation impaired. No CV, GI/, Pulmonary, Eye system symptoms on review. MENTAL STATUS EXAM: Oriented to himself and situation. Speech has some latency, coherent. Abstraction is fair. Computation is impaired. Language function is intact. Mood and affect withdrawn. LABORATORY DATA: Reviewed. IMPRESSION: Major depressive disorder with psychotic features. Mild cognitive impairment. Rest unchanged. PLAN: Start Periactin 2 mg h.s. to stimulate appetite. Appetite has been poor. Rest unchanged for now. Assessment: Vital Signs/I&O: Vital Signs Date Time Temp Pulse Resp B/P (MAP) Pulse Ox O2 Delivery O2 Flow Rate FiO2 03/08/20 08:00 98.2 98 03/08/20 06:43 75 18 114/68 (83) 03/07/20 06:17 Room Air I & O 03/07/20 03/07/20 03/08/20 15:00 23:00 07:00 Intake Total 600 ml 460 ml Output Total 550 ml Balance 600 ml -90 ml Current Medications: Meds: Current Medications Medications (Trade) Dose Ordered Sig/Nader Route PRN Reason Start Time Stop Time Status Last Admin Dose Admin Cyproheptadine HCl (Periactin) 2 mg HS PO 03/07/20 21:00 03/07/20 19:45 I have reviewed the current psychotropics carefully including drug interactions. Risk benefit ratio favors no change other than as noted in my dictated progress note. 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
[2020-03-08 16:00] VITALS: BP 127/63
[2020-03-08] MEDS ORDERED: levoFLOXacin 750 MG TABLET PO SCH (17:30)
[2020-03-08] MEDS: LACTOBACILLUS RHAMNOSUS GG 1 CAPSULE. PO SCH (22:05)
[2020-03-08] MEDS: CYPROHEPTADINE 4 MG TABLET. PO SCH (22:05)
[2020-03-08] MEDS: TAMSULOSIN 0.4 MG CAP.ER.24H. PO SCH (22:06)
--- NOTE | 2020-03-08 22:06 | PDOC ---
Exam Note: Jay Note: Please also refer to the separate dictated note~for this date of service dictated separately.~Patient seen individually. Discussed the patient with Nursing staff reviewed the chart.~Reviewed interim history and current functioning. Reviewed vital signs,~Labs/ Radiology~and current medications noted below. Continue current treatment with the changes noted in the dictated addendum note Assessment: Vital Signs/I&O: Vital Signs Date Time Temp Pulse Resp B/P (MAP) Pulse Ox O2 Delivery O2 Flow Rate FiO2 03/08/20 20:39 98.3 92 03/08/20 16:00 68 16 127/63 (84) 03/07/20 06:17 Room Air I & O 03/07/20 03/07/20 03/08/20 15:00 23:00 07:00 Intake Total 600 ml 460 ml Output Total 550 ml Balance 600 ml -90 ml Current Medications: Meds: Current Medications Medications (Trade) Dose Ordered Sig/Nader Route PRN Reason Start Time Stop Time Status Last Admin Dose Admin Levofloxacin (Levaquin) 750 mg Q48H PO 03/08/20 17:30 03/08/20 18:00 I have reviewed the current psychotropics carefully including drug interactions. Risk benefit ratio favors no change other than as noted in my dictated progress note. 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
[2020-03-08] MEDS: TERAZOSIN 5 MG CAPSULE. PO SCH (22:07)
[2020-03-08] MEDS: ATORVASTATIN CALCIUM 20 MG TABLET PO SCH (22:07)
--- NOTE | 2020-03-08 22:42 | PN ---
DATE: 03/08/2020 PSYCHIATRIC PROGRESS NOTE This note covers elements not covered in my initial note. SUBJECTIVE: I met with the patient evening of 03/08/2020. Per RAFAELA Collado, the patient slept 7-1/2 hours previous night. Appetite is little better, 75% for lunch and dinner. No breakfast. He does have a UTI, started on Levaquin for this post-sensitivity received back. REVIEW OF SYSTEMS: Ambulation impaired, in wheelchair. No CV, , pulmonary, eye system symptoms on review. MENTAL STATUS EXAM: Oriented to himself and situation. Speech has some latency, coherent. Abstraction fair, computation impaired, language function intact, attention span short. Short term memory is impaired. Mood and affect somewhat withdrawn at times. LABORATORY DATA: Reviewed. IMPRESSION: Major depressive disorder with psychotic features; major neurocognitive disorder, Alzheimer, vascular with delusion, depression, urinary tract infection. Rest unchanged. PLAN: Treat the UTI. Rest unchanged for now including Exelon patch, increasing to 9.5 mg a day, trazodone for insomnia, Zoloft and Periactin added to stimulate appetite. MAN Natalia BURLESON MD DR: DANIEL/glenn JOB#: [id number] / [id number]
[2020-03-09 06:15] VITALS: BP 105/65
[2020-03-09 06:57] LABS: BASO % 1 % (0-3); EOS # 0.2 x10^3/uL (0.0-0.7); EOS % 3 % (0-3); HEMATOCRIT 33.1 % (39.0-53.0); HEMOGLOBIN 11.3 g/dL (13.0-17.5); LYMPH # 1.1 x10^3/uL (1.0-4.8); LYMPH % 21 % (24-48); MEAN CORPUSCULAR HEMOGLOBIN 31 pg (25-35); MEAN CORPUSCULAR HGB CONC 34 g/dL (31-37); MEAN CORPUSCULAR VOLUME 91 fL (79-100); MONO # 0.5 x10^3/uL (0.0-1.1); MONO % 10 % (0-9); NEUT # 3.3 x10^3uL (1.8-7.7); NEUT % 65 % (31-73); PLATELET COUNT 181 x10^3/uL (140-400); RED BLOOD COUNT 3.66 x10^6/uL (4.30-5.70); RED CELL DISTRIBUTION WIDTH 14.3 % (11.5-14.5); WHITE BLOOD COUNT 5.1 x10^3/uL (4.0-11.0)
[2020-03-09 07:12] LABS: ALBUMIN 2.5 g/dL (3.4-5.0); ALBUMIN/GLOBULIN RATIO 0.8 (1.0-1.7); CREATININE 1.2 mg/dL (0.7-1.3); GFR 57.1; POTASSIUM 3.9 mmol/L (3.5-5.1); TOTAL BILIRUBIN 0.5 mg/dL (0.2-1.0); TOTAL PROTEIN 5.8 g/dL (6.4-8.2)
[2020-03-09] MEDS: POLYETHYLENE GLYCOL 3350 17 GM PACKET. PO SCH (09:42)
[2020-03-09] MEDS: ASPIRIN ENTERIC COATED 81 MG TABLET.DR. PO SCH (09:43)
[2020-03-09] MEDS: LACTOBACILLUS RHAMNOSUS GG 1 CAPSULE. PO SCH ×2 (09:43→21:21)
[2020-03-09] MEDS: MULTIVITAMIN with MINERAL TABLET. PO SCH (09:43)
[2020-03-09] MEDS: CYANOCOBALAMIN (VITAMIN B-12) 250 MCG TABLET PO SCH (09:44)
[2020-03-09] MEDS: RIVASTIGMINE 4.6MG PATCH. TD SCH (09:44)
[2020-03-09] MEDS: FOLIC ACID 1 MG TABLET PO SCH (09:44)
[2020-03-09] MEDS: SERTRALINE 25 MG TABLET. PO SCH (09:44)
[2020-03-09] MEDS: NICOTINE 7MG PATCH. TD SCH (09:45)
[2020-03-09 15:49] VITALS: BP 101/64
[2020-03-09] MEDS: CYPROHEPTADINE 4 MG TABLET. PO SCH (21:00)
[2020-03-09] MEDS: TAMSULOSIN 0.4 MG CAP.ER.24H. PO SCH (21:21)
[2020-03-09] MEDS: ATORVASTATIN CALCIUM 20 MG TABLET PO SCH (21:21)
[2020-03-09] MEDS: TERAZOSIN 5 MG CAPSULE. PO SCH (21:35)
--- NOTE | 2020-03-09 22:05 | PDOC ---
Exam Note: Jay Note: Please also refer to the separate dictated note~for this date of service dictated separately.~Patient seen individually. Discussed the patient with Nursing staff reviewed the chart.~Reviewed interim history and current functioning. Reviewed vital signs,~Labs/ Radiology~and current medications noted below. Continue current treatment with the changes noted in the dictated addendum note Assessment: Vital Signs/I&O: Vital Signs Date Time Temp Pulse Resp B/P (MAP) Pulse Ox O2 Delivery O2 Flow Rate FiO2 03/09/20 21:35 74 142/79 03/09/20 20:23 97.4 97 03/09/20 15:49 16 03/07/20 06:17 Room Air I & O 03/08/20 03/08/20 03/09/20 15:00 23:00 07:00 Intake Total 480 ml 240 ml Output Total 675 ml Balance 480 ml 240 ml -675 ml Labs: Laboratory Tests Test 03/09/20 06:39 White Blood Count 5.1 x10^3/uL (4.0-11.0) Red Blood Count 3.66 x10^6/uL (4.30-5.70) L Hemoglobin 11.3 g/dL (13.0-17.5) L Hematocrit 33.1 % (39.0-53.0) L Mean Corpuscular Volume 91 fL (79-100) Mean Corpuscular Hemoglobin 31 pg (25-35) Mean Corpuscular Hemoglobin Concent 34 g/dL (31-37) Red Cell Distribution Width 14.3 % (11.5-14.5) Platelet Count 181 x10^3/uL (140-400) Neutrophils (%) (Auto) 65 % (31-73) Lymphocytes (%) (Auto) 21 % (24-48) L Monocytes (%) (Auto) 10 % (0-9) H Eosinophils (%) (Auto) 3 % (0-3) Basophils (%) (Auto) 1 % (0-3) Neutrophils # (Auto) 3.3 x10^3uL (1.8-7.7) Lymphocytes # (Auto) 1.1 x10^3/uL (1.0-4.8) Monocytes # (Auto) 0.5 x10^3/uL (0.0-1.1) Eosinophils # (Auto) 0.2 x10^3/uL (0.0-0.7) Basophils # (Auto) 0.0 x10^3/uL (0.0-0.2) Sodium Level 137 mmol/L (136-145) Potassium Level 3.9 mmol/L (3.5-5.1) Chloride Level 102 mmol/L (98-107) Carbon Dioxide Level 27 mmol/L (21-32) Anion Gap 8 (6-14) Blood Urea Nitrogen 27 mg/dL (8-26) H Creatinine 1.2 mg/dL (0.7-1.3) Estimated GFR (Cockcroft-Gault) 57.1 BUN/Creatinine Ratio 23 (6-20) H Glucose Level 90 mg/dL (70-99) Calcium Level 8.0 mg/dL (8.5-10.1) L Total Bilirubin 0.5 mg/dL (0.2-1.0) Aspartate Amino Transferase (AST) 22 U/L (15-37) Alanine Aminotransferase (ALT) 30 U/L (16-63) Alkaline Phosphatase 79 U/L (46-116) Total Protein 5.8 g/dL (6.4-8.2) L Albumin 2.5 g/dL (3.4-5.0) L Albumin/Globulin Ratio 0.8 (1.0-1.7) L Current Medications: I have reviewed the current psychotropics carefully including drug interactions. Risk benefit ratio favors no change other than as noted in my dictated progress note. Diagnosis: Problems: (1) Urinary tract infection (2) Impulse control disorder, unspecified (3) Anxiety disorder, unspecified (4) Dementia, vascular, with depression (5) Dementia, vascular, with delusions (6) Dementia in Alzheimer's disease with depression (7) Dementia in Alzheimer's disease with delusions (8) Major neurocognitive disorder, due to vascular disease, with behavioral disturbance, mild (9) Major depressive disorder with psychotic features (10) Mild cognitive impairment ELI BURLESON MD March 09, 2020 22:05
[2020-03-10 06:23] VITALS: BP 115/72
[2020-03-10] MEDS: ASPIRIN ENTERIC COATED 81 MG TABLET.DR. PO SCH (08:10)
[2020-03-10] MEDS: NICOTINE 7MG PATCH. TD SCH (08:10)
[2020-03-10] MEDS: RIVASTIGMINE 4.6MG PATCH. TD SCH (08:10)
[2020-03-10] MEDS: SERTRALINE 25 MG TABLET. PO SCH (08:11)
[2020-03-10] MEDS: CYANOCOBALAMIN (VITAMIN B-12) 250 MCG TABLET PO SCH (08:11)
[2020-03-10] MEDS: LACTOBACILLUS RHAMNOSUS GG 1 CAPSULE. PO SCH ×2 (08:11→21:04)
[2020-03-10] MEDS: FOLIC ACID 1 MG TABLET PO SCH (08:11)
[2020-03-10] MEDS: MULTIVITAMIN with MINERAL TABLET. PO SCH (08:11)
[2020-03-10] MEDS: POLYETHYLENE GLYCOL 3350 17 GM PACKET. PO SCH (08:12)
[2020-03-10 16:33] VITALS: BP 103/69
[2020-03-10] MEDS: levoFLOXacin 250 MG TABLET PO SCH (17:50)
[2020-03-10] MEDS: CYPROHEPTADINE 4 MG TABLET. PO SCH (21:04)
[2020-03-10] MEDS: ATORVASTATIN CALCIUM 20 MG TABLET PO SCH (21:04)
[2020-03-10] MEDS: TAMSULOSIN 0.4 MG CAP.ER.24H. PO SCH (21:04)
[2020-03-10] MEDS: traZODone 50 MG TABLET. PO PRN (21:04)
[2020-03-10] MEDS: TERAZOSIN 5 MG CAPSULE. PO SCH (21:07)
--- NOTE | 2020-03-10 21:58 | PDOC ---
Exam Note: Jay Note: Please also refer to the separate dictated note~for this date of service dictated separately.~Patient seen individually. Discussed the patient with Nursing staff reviewed the chart.~Reviewed interim history and current functioning. Reviewed vital signs,~Labs/ Radiology~and current medications noted below. Continue current treatment with the changes noted in the dictated addendum note Assessment: Vital Signs/I&O: Vital Signs Date Time Temp Pulse Resp B/P (MAP) Pulse Ox O2 Delivery O2 Flow Rate FiO2 03/10/20 21:18 98.0 97 03/10/20 21:07 85 112/73 03/10/20 16:33 18 Room Air I & O 03/09/20 03/09/20 03/10/20 15:00 23:00 07:00 Intake Total 720 ml Output Total 1100 ml 925 ml Balance 720 ml -1100 ml -925 ml Current Medications: Meds: Current Medications Medications (Trade) Dose Ordered Sig/Nader Route PRN Reason Start Time Stop Time Status Last Admin Dose Admin Levofloxacin (Levaquin) 250 mg Q24H PO 03/10/20 18:00 03/10/20 17:50 I have reviewed the current psychotropics carefully including drug interactions. Risk benefit ratio favors no change other than as noted in my dictated progress note. Diagnosis: Problems: (1) Impulse control disorder, unspecified (2) Anxiety disorder, unspecified (3) Dementia, vascular, with depression (4) Dementia, vascular, with delusions (5) Dementia in Alzheimer's disease with depression (6) Dementia in Alzheimer's disease with delusions (7) Major neurocognitive disorder, due to vascular disease, with behavioral disturbance, mild (8) Major depressive disorder with psychotic features (9) Mild cognitive impairment (10) Urinary tract infection ELI BURLESON MD March 10, 2020 21:57
[2020-03-11 06:04] VITALS: BP 142/81
[2020-03-11] MEDS: RIVASTIGMINE 4.6MG PATCH. TD SCH (08:14)
[2020-03-11] MEDS: NICOTINE 7MG PATCH. TD SCH (08:15)
[2020-03-11] MEDS: LACTOBACILLUS RHAMNOSUS GG 1 CAPSULE. PO SCH ×2 (08:15→21:07)
[2020-03-11] MEDS: MULTIVITAMIN with MINERAL TABLET. PO SCH (08:15)
[2020-03-11] MEDS: POLYETHYLENE GLYCOL 3350 17 GM PACKET. PO SCH (08:15)
[2020-03-11] MEDS: ASPIRIN ENTERIC COATED 81 MG TABLET.DR. PO SCH (08:15)
[2020-03-11] MEDS: CYANOCOBALAMIN (VITAMIN B-12) 250 MCG TABLET PO SCH (08:15)
[2020-03-11] MEDS: FOLIC ACID 1 MG TABLET PO SCH (08:15)
[2020-03-11] MEDS: SERTRALINE 25 MG TABLET. PO SCH (08:16)
[2020-03-11 08:45] LABS: BASO % 1 % (0-3); EOS # 0.2 x10^3/uL (0.0-0.7); EOS % 3 % (0-3); HEMATOCRIT 35.8 % (39.0-53.0); HEMOGLOBIN 12.2 g/dL (13.0-17.5); LYMPH # 1.6 x10^3/uL (1.0-4.8); LYMPH % 29 % (24-48); MEAN CORPUSCULAR HEMOGLOBIN 31 pg (25-35); MEAN CORPUSCULAR HGB CONC 34 g/dL (31-37); MEAN CORPUSCULAR VOLUME 91 fL (79-100); MONO # 0.5 x10^3/uL (0.0-1.1); MONO % 10 % (0-9); NEUT # 3.1 x10^3uL (1.8-7.7); NEUT % 58 % (31-73); PLATELET COUNT 198 x10^3/uL (140-400); RED BLOOD COUNT 3.96 x10^6/uL (4.30-5.70); RED CELL DISTRIBUTION WIDTH 14.6 % (11.5-14.5); WHITE BLOOD COUNT 5.4 x10^3/uL (4.0-11.0)
[2020-03-11 08:56] LABS: ALBUMIN 2.9 g/dL (3.4-5.0); ALBUMIN/GLOBULIN RATIO 0.9 (1.0-1.7); CALCIUM 8.7 mg/dL (8.5-10.1); CREATININE 1.3 mg/dL (0.7-1.3); GFR 52.1; TOTAL BILIRUBIN 0.6 mg/dL (0.2-1.0); TOTAL PROTEIN 6.3 g/dL (6.4-8.2)
[2020-03-11 16:12] VITALS: BP 104/68
[2020-03-11] MEDS: levoFLOXacin 250 MG TABLET PO SCH (18:00)
[2020-03-11] MEDS: TAMSULOSIN 0.4 MG CAP.ER.24H. PO SCH (21:07)
[2020-03-11] MEDS: CYPROHEPTADINE 4 MG TABLET. PO SCH (21:07)
[2020-03-11] MEDS: traZODone 50 MG TABLET. PO PRN (21:07)
[2020-03-11] MEDS: TERAZOSIN 5 MG CAPSULE. PO SCH (21:07)
[2020-03-11] MEDS: ATORVASTATIN CALCIUM 20 MG TABLET PO SCH (21:07)
--- NOTE | 2020-03-11 22:27 | PDOC ---
Exam Note: Jay Note: Please also refer to the separate dictated note~for this date of service dictated separately.~Patient seen individually. Discussed the patient with Nursing staff reviewed the chart.~Reviewed interim history and current functioning. Reviewed vital signs,~Labs/ Radiology~and current medications noted below. Continue current treatment with the changes noted in the dictated addendum note Assessment: Vital Signs/I&O: Vital Signs Date Time Temp Pulse Resp B/P (MAP) Pulse Ox O2 Delivery O2 Flow Rate FiO2 03/11/20 21:07 70 104/68 03/11/20 20:57 97.9 92 03/11/20 16:12 16 Room Air I & O 03/10/20 03/10/20 03/11/20 15:00 23:00 07:00 Intake Total 240 ml 480 ml Output Total 500 ml Balance 240 ml 480 ml -500 ml Labs: Laboratory Tests Test 03/11/20 08:03 White Blood Count 5.4 x10^3/uL (4.0-11.0) Red Blood Count 3.96 x10^6/uL (4.30-5.70) L Hemoglobin 12.2 g/dL (13.0-17.5) L Hematocrit 35.8 % (39.0-53.0) L Mean Corpuscular Volume 91 fL (79-100) Mean Corpuscular Hemoglobin 31 pg (25-35) Mean Corpuscular Hemoglobin Concent 34 g/dL (31-37) Red Cell Distribution Width 14.6 % (11.5-14.5) H Platelet Count 198 x10^3/uL (140-400) Neutrophils (%) (Auto) 58 % (31-73) Lymphocytes (%) (Auto) 29 % (24-48) Monocytes (%) (Auto) 10 % (0-9) H Eosinophils (%) (Auto) 3 % (0-3) Basophils (%) (Auto) 1 % (0-3) Neutrophils # (Auto) 3.1 x10^3uL (1.8-7.7) Lymphocytes # (Auto) 1.6 x10^3/uL (1.0-4.8) Monocytes # (Auto) 0.5 x10^3/uL (0.0-1.1) Eosinophils # (Auto) 0.2 x10^3/uL (0.0-0.7) Basophils # (Auto) 0.0 x10^3/uL (0.0-0.2) Sodium Level 139 mmol/L (136-145) Potassium Level 4.0 mmol/L (3.5-5.1) Chloride Level 103 mmol/L (98-107) Carbon Dioxide Level 28 mmol/L (21-32) Anion Gap 8 (6-14) Blood Urea Nitrogen 26 mg/dL (8-26) Creatinine 1.3 mg/dL (0.7-1.3) Estimated GFR (Cockcroft-Gault) 52.1 BUN/Creatinine Ratio 20 (6-20) Glucose Level 94 mg/dL (70-99) Calcium Level 8.7 mg/dL (8.5-10.1) Total Bilirubin 0.6 mg/dL (0.2-1.0) Aspartate Amino Transferase (AST) 22 U/L (15-37) Alanine Aminotransferase (ALT) 29 U/L (16-63) Alkaline Phosphatase 89 U/L (46-116) Total Protein 6.3 g/dL (6.4-8.2) L Albumin 2.9 g/dL (3.4-5.0) L Albumin/Globulin Ratio 0.9 (1.0-1.7) L Current Medications: I have reviewed the current psychotropics carefully including drug interactions. Risk benefit ratio favors no change other than as noted in my dictated progress note. Diagnosis: Problems: (1) Medical clearance for psychiatric admission (2) Impulse control disorder, unspecified (3) Anxiety disorder, unspecified (4) Dementia, vascular, with depression (5) Dementia, vascular, with delusions (6) Dementia in Alzheimer's disease with depression (7) Dementia in Alzheimer's disease with delusions (8) Major neurocognitive disorder, due to vascular disease, with behavioral disturbance, mild (9) Major depressive disorder with psychotic features (10) Mild cognitive impairment (11) Urinary tract infection ELI BURLESON MD March 11, 2020 22:27
[2020-03-12 06:42] VITALS: BP 126/79
--- NOTE | 2020-03-12 07:51 | PDOC ---
Exam Note: Jay Note: This note is a late entry for 03/10/2020 covers elements not covered in my initial note. Subjective: The patient was seen face to face in the evening of 03/10/2020. Nursing report was with Antonia RUSSO. Discussed the patient with nursing staff reviewed the chart. He slept 8-1/4 hours previous night. He remains on Levaquin for his UTI. Refused breakfast, did eat lunch and dinner. Review of Systems: Ambulation impaired, in wheelchair. No CV, GI/, Pulmonary, Eye system symptoms on review. Mental Status Exam: Oriented to himself and situation. Speech has some latency, coherent. Abstraction is fair. Computation is impaired. Language function is intact. Short-term memory is impaired. No suicidal or homicidal ideation. No clear psychotic symptoms. Laboratory Data: Reviewed. 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 Urinary tract infection. Rest unchanged. Plan: No change from initial note. Assessment: Vital Signs/I&O: Vital Signs Date Time Temp Pulse Resp B/P (MAP) Pulse Ox O2 Delivery O2 Flow Rate FiO2 03/12/20 06:42 98.2 70 18 126/79 (95) 95 03/11/20 16:12 Room Air I & O 03/11/20 03/11/20 03/12/20 15:00 23:00 07:00 Intake Total 240 ml 340 ml Output Total 650 ml Balance 240 ml 340 ml -650 ml Labs: Laboratory Tests Test 03/11/20 08:03 White Blood Count 5.4 x10^3/uL (4.0-11.0) Red Blood Count 3.96 x10^6/uL (4.30-5.70) L Hemoglobin 12.2 g/dL (13.0-17.5) L Hematocrit 35.8 % (39.0-53.0) L Mean Corpuscular Volume 91 fL (79-100) Mean Corpuscular Hemoglobin 31 pg (25-35) Mean Corpuscular Hemoglobin Concent 34 g/dL (31-37) Red Cell Distribution Width 14.6 % (11.5-14.5) H Platelet Count 198 x10^3/uL (140-400) Neutrophils (%) (Auto) 58 % (31-73) Lymphocytes (%) (Auto) 29 % (24-48) Monocytes (%) (Auto) 10 % (0-9) H Eosinophils (%) (Auto) 3 % (0-3) Basophils (%) (Auto) 1 % (0-3) Neutrophils # (Auto) 3.1 x10^3uL (1.8-7.7) Lymphocytes # (Auto) 1.6 x10^3/uL (1.0-4.8) Monocytes # (Auto) 0.5 x10^3/uL (0.0-1.1) Eosinophils # (Auto) 0.2 x10^3/uL (0.0-0.7) Basophils # (Auto) 0.0 x10^3/uL (0.0-0.2) Sodium Level 139 mmol/L (136-145) Potassium Level 4.0 mmol/L (3.5-5.1) Chloride Level 103 mmol/L (98-107) Carbon Dioxide Level 28 mmol/L (21-32) Anion Gap 8 (6-14) Blood Urea Nitrogen 26 mg/dL (8-26) Creatinine 1.3 mg/dL (0.7-1.3) Estimated GFR (Cockcroft-Gault) 52.1 BUN/Creatinine Ratio 20 (6-20) Glucose Level 94 mg/dL (70-99) Calcium Level 8.7 mg/dL (8.5-10.1) Total Bilirubin 0.6 mg/dL (0.2-1.0) Aspartate Amino Transferase (AST) 22 U/L (15-37) Alanine Aminotransferase (ALT) 29 U/L (16-63) Alkaline Phosphatase 89 U/L (46-116) Total Protein 6.3 g/dL (6.4-8.2) L Albumin 2.9 g/dL (3.4-5.0) L Albumin/Globulin Ratio 0.9 (1.0-1.7) L Current Medications: I have reviewed the current psychotropics carefully including drug interactions. Risk benefit ratio favors no change other than as noted in my dictated progress note. Diagnosis: Problems: (1) Impulse control disorder, unspecified (2) Anxiety disorder, unspecified (3) Dementia, vascular, with depression (4) Dementia, vascular, with delusions (5) Dementia in Alzheimer's disease with depression (6) Dementia in Alzheimer's disease with delusions (7) Major neurocognitive disorder, due to vascular disease, with behavioral disturbance, mild (8) Major depressive disorder with psychotic features (9) Mild cognitive impairment (10) Urinary tract infection ELI BURLESON MD March 12, 2020 07:51
--- NOTE | 2020-03-12 07:53 | PDOC ---
Exam Note: Jay Note: This note is a late entry for 03/11/2020 covers elements not covered in my initial note. Subjective: The patient was seen face to face in the evening of 03/11/2020. Nursing report was with Antonia RUSSO. Discussed the patient with nursing staff reviewed the chart. He has been obsessing about wanting to go home and asking when he would be going home. I addressed this with him at length Review of Systems: Ambulation impaired, in wheelchair. No CV, GI/, Pulmonary, Eye system symptoms on review. Mental Status Exam: Oriented to himself and situation. Speech is coherent, has some latency. Abstraction is fair. Computation is impaired. Language function is intact. Attention span is short. Mood and affect withdrawn. Laboratory Data: Reviewed. 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 Urinary tract infection. Rest unchanged. Plan: No change from initial note. He remains on Levaquin for his UTI. Assessment: Vital Signs/I&O: Vital Signs Date Time Temp Pulse Resp B/P (MAP) Pulse Ox O2 Delivery O2 Flow Rate FiO2 03/12/20 06:42 98.2 70 18 126/79 (95) 95 03/11/20 16:12 Room Air I & O 03/11/20 03/11/20 03/12/20 15:00 23:00 07:00 Intake Total 240 ml 340 ml Output Total 650 ml Balance 240 ml 340 ml -650 ml Labs: Laboratory Tests Test 03/11/20 08:03 White Blood Count 5.4 x10^3/uL (4.0-11.0) Red Blood Count 3.96 x10^6/uL (4.30-5.70) L Hemoglobin 12.2 g/dL (13.0-17.5) L Hematocrit 35.8 % (39.0-53.0) L Mean Corpuscular Volume 91 fL (79-100) Mean Corpuscular Hemoglobin 31 pg (25-35) Mean Corpuscular Hemoglobin Concent 34 g/dL (31-37) Red Cell Distribution Width 14.6 % (11.5-14.5) H Platelet Count 198 x10^3/uL (140-400) Neutrophils (%) (Auto) 58 % (31-73) Lymphocytes (%) (Auto) 29 % (24-48) Monocytes (%) (Auto) 10 % (0-9) H Eosinophils (%) (Auto) 3 % (0-3) Basophils (%) (Auto) 1 % (0-3) Neutrophils # (Auto) 3.1 x10^3uL (1.8-7.7) Lymphocytes # (Auto) 1.6 x10^3/uL (1.0-4.8) Monocytes # (Auto) 0.5 x10^3/uL (0.0-1.1) Eosinophils # (Auto) 0.2 x10^3/uL (0.0-0.7) Basophils # (Auto) 0.0 x10^3/uL (0.0-0.2) Sodium Level 139 mmol/L (136-145) Potassium Level 4.0 mmol/L (3.5-5.1) Chloride Level 103 mmol/L (98-107) Carbon Dioxide Level 28 mmol/L (21-32) Anion Gap 8 (6-14) Blood Urea Nitrogen 26 mg/dL (8-26) Creatinine 1.3 mg/dL (0.7-1.3) Estimated GFR (Cockcroft-Gault) 52.1 BUN/Creatinine Ratio 20 (6-20) Glucose Level 94 mg/dL (70-99) Calcium Level 8.7 mg/dL (8.5-10.1) Total Bilirubin 0.6 mg/dL (0.2-1.0) Aspartate Amino Transferase (AST) 22 U/L (15-37) Alanine Aminotransferase (ALT) 29 U/L (16-63) Alkaline Phosphatase 89 U/L (46-116) Total Protein 6.3 g/dL (6.4-8.2) L Albumin 2.9 g/dL (3.4-5.0) L Albumin/Globulin Ratio 0.9 (1.0-1.7) L Current Medications: I have reviewed the current psychotropics carefully including drug interactions. Risk benefit ratio favors no change other than as noted in my dictated progress note. Diagnosis: Problems: (1) Impulse control disorder, unspecified (2) Anxiety disorder, unspecified (3) Dementia, vascular, with depression (4) Dementia, vascular, with delusions (5) Dementia in Alzheimer's disease with depression (6) Dementia in Alzheimer's disease with delusions (7) Major neurocognitive disorder, due to vascular disease, with behavioral disturbance, mild (8) Major depressive disorder with psychotic features (9) Mild cognitive impairment (10) Urinary tract infection ELI BURLESON MD March 12, 2020 07:53
[2020-03-12] MEDS: CYANOCOBALAMIN (VITAMIN B-12) 250 MCG TABLET PO SCH (08:13)
[2020-03-12] MEDS: FOLIC ACID 1 MG TABLET PO SCH (08:13)
[2020-03-12] MEDS: ASPIRIN ENTERIC COATED 81 MG TABLET.DR. PO SCH (08:13)
[2020-03-12] MEDS: POLYETHYLENE GLYCOL 3350 17 GM PACKET. PO SCH (08:13)
[2020-03-12] MEDS: LACTOBACILLUS RHAMNOSUS GG 1 CAPSULE. PO SCH ×2 (08:13→20:33)
[2020-03-12] MEDS: RIVASTIGMINE 4.6MG PATCH. TD SCH (08:14)
[2020-03-12] MEDS: MULTIVITAMIN with MINERAL TABLET. PO SCH (08:14)
[2020-03-12] MEDS: SERTRALINE 25 MG TABLET. PO SCH (08:14)
[2020-03-12] MEDS: levoFLOXacin 250 MG TABLET PO SCH (08:14)
[2020-03-12] MEDS: NICOTINE 7MG PATCH. TD SCH (08:15)
[2020-03-12 16:03] VITALS: BP 116/73
[2020-03-12] MEDS: ATORVASTATIN CALCIUM 20 MG TABLET PO SCH (20:33)
[2020-03-12] MEDS: TAMSULOSIN 0.4 MG CAP.ER.24H. PO SCH (20:33)
[2020-03-12] MEDS: CYPROHEPTADINE 4 MG TABLET. PO SCH (20:34)
[2020-03-12] MEDS: TERAZOSIN 5 MG CAPSULE. PO SCH (20:34)
[2020-03-12] MEDS: traZODone 50 MG TABLET. PO PRN (20:34)
--- NOTE | 2020-03-12 21:56 | PDOC ---
Exam Note: Jay Note: Please also refer to the separate dictated note~for this date of service dictated separately.~Patient seen individually. Discussed the patient with Nursing staff reviewed the chart.~Reviewed interim history and current functioning. Reviewed vital signs,~Labs/ Radiology~and current medications noted below. Continue current treatment with the changes noted in the dictated addendum note Assessment: Vital Signs/I&O: Vital Signs Date Time Temp Pulse Resp B/P (MAP) Pulse Ox O2 Delivery O2 Flow Rate FiO2 03/12/20 20:34 79 116/73 03/12/20 18:02 97.6 03/12/20 16:03 16 97 Room Air I & O 03/11/20 03/11/20 03/12/20 15:00 23:00 07:00 Intake Total 240 ml 340 ml Output Total 650 ml Balance 240 ml 340 ml -650 ml Current Medications: I have reviewed the current psychotropics carefully including drug interactions. Risk benefit ratio favors no change other than as noted in my dictated progress note. Diagnosis: Problems: (1) Impulse control disorder, unspecified (2) Anxiety disorder, unspecified (3) Dementia, vascular, with depression (4) Dementia, vascular, with delusions (5) Dementia in Alzheimer's disease with depression (6) Dementia in Alzheimer's disease with delusions (7) Major neurocognitive disorder, due to vascular disease, with behavioral disturbance, mild (8) Major depressive disorder with psychotic features (9) Mild cognitive impairment (10) Urinary tract infection ELI BURLESON MD March 12, 2020 21:56
[2020-03-13 06:16] VITALS: BP 112/72
--- NOTE | 2020-03-13 07:05 | PDOC ---
Exam Note: Jay Note: Please also refer to the separate dictated note~for this date of service dictated separately.~Patient seen individually. Discussed the patient with Nursing staff reviewed the chart.~Reviewed interim history and current functioning. Reviewed vital signs,~Labs/ Radiology~and current medications noted below. Continue current treatment with the changes noted in the dictated addendum note Assessment: Vital Signs/I&O: Vital Signs Date Time Temp Pulse Resp B/P (MAP) Pulse Ox O2 Delivery O2 Flow Rate FiO2 03/13/20 06:16 97.3 66 18 112/72 (85) 98 03/12/20 16:03 Room Air I & O 03/12/20 03/12/20 03/13/20 15:00 23:00 07:00 Intake Total 120 ml 360 ml Output Total 450 ml 250 ml Balance 120 ml -90 ml -250 ml Current Medications: I have reviewed the current psychotropics carefully including drug interactions. Risk benefit ratio favors no change other than as noted in my dictated progress note. Diagnosis: Problems: (1) Impulse control disorder, unspecified (2) Anxiety disorder, unspecified (3) Dementia, vascular, with depression (4) Dementia, vascular, with delusions (5) Dementia in Alzheimer's disease with depression (6) Dementia in Alzheimer's disease with delusions (7) Major neurocognitive disorder, due to vascular disease, with behavioral disturbance, mild (8) Major depressive disorder with psychotic features (9) Mild cognitive impairment (10) Urinary tract infection ELI BURLESON MD March 13, 2020 07:05
--- NOTE | 2020-03-13 07:06 | PDOC ---
Exam Note: Jay Note: This note is a late entry for 03/12/2020 covers elements not covered in my initial note. Subjective: The patient was seen face to face in the evening of 03/12/2020. Nursing report was with Marielos RUSSO. Discussed the patient with nursing staff reviewed the chart. He slept 7-1/2 hours. He is somewhat obsessed about wanting to go home. Over the past many months the patient has lost weight from 220 pounds to 180 pounds. He is somewhat forgetful, anxious. Review of Systems: Ambulation impaired, in wheelchair. No CV, GI/, Pulmonary, Eye system symptoms on review. He does admit to being quite tired. Mental Status Exam: Oriented to himself and situation. The patient is verbal, interactive. Speech has some latency, low in volume, coherent. Abstraction is fair. Computation is impaired. No active suicidal or homicidal ideation. Attention span is fair. Laboratory Data: Reviewed. 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 Urinary tract infection. Rest unchanged. Plan: No change from initial note. Assessment: Vital Signs/I&O: Vital Signs Date Time Temp Pulse Resp B/P (MAP) Pulse Ox O2 Delivery O2 Flow Rate FiO2 03/13/20 06:16 97.3 66 18 112/72 (85) 98 03/12/20 16:03 Room Air I & O 03/12/20 03/12/20 03/13/20 15:00 23:00 07:00 Intake Total 120 ml 360 ml Output Total 450 ml 250 ml Balance 120 ml -90 ml -250 ml Current Medications: I have reviewed the current psychotropics carefully including drug interactions. Risk benefit ratio favors no change other than as noted in my dictated progress note. Diagnosis: Problems: (1) Impulse control disorder, unspecified (2) Anxiety disorder, unspecified (3) Dementia, vascular, with depression (4) Dementia, vascular, with delusions (5) Dementia in Alzheimer's disease with depression (6) Dementia in Alzheimer's disease with delusions (7) Major neurocognitive disorder, due to vascular disease, with behavioral disturbance, mild (8) Major depressive disorder with psychotic features (9) Mild cognitive impairment (10) Urinary tract infection ELI BURLESON MD March 13, 2020 07:06
[2020-03-13 08:14] LABS: BASO % 1 % (0-3); EOS # 0.3 x10^3/uL (0.0-0.7); EOS % 5 % (0-3); HEMATOCRIT 35.8 % (39.0-53.0); LYMPH # 1.7 x10^3/uL (1.0-4.8); LYMPH % 29 % (24-48); MEAN CORPUSCULAR HEMOGLOBIN 30 pg (25-35); MEAN CORPUSCULAR HGB CONC 34 g/dL (31-37); MEAN CORPUSCULAR VOLUME 90 fL (79-100); MONO # 0.5 x10^3/uL (0.0-1.1); MONO % 9 % (0-9); NEUT # 3.4 x10^3uL (1.8-7.7); NEUT % 58 % (31-73); PLATELET COUNT 188 x10^3/uL (140-400); RED BLOOD COUNT 3.96 x10^6/uL (4.30-5.70); RED CELL DISTRIBUTION WIDTH 14.4 % (11.5-14.5); WHITE BLOOD COUNT 5.9 x10^3/uL (4.0-11.0)
[2020-03-13 08:37] LABS: ALBUMIN 2.7 g/dL (3.4-5.0); ALBUMIN/GLOBULIN RATIO 0.8 (1.0-1.7); CALCIUM 8.4 mg/dL (8.5-10.1); CREATININE 1.3 mg/dL (0.7-1.3); GFR 52.1; TOTAL BILIRUBIN 0.6 mg/dL (0.2-1.0); TOTAL PROTEIN 5.9 g/dL (6.4-8.2)
[2020-03-13] MEDS: NICOTINE 7MG PATCH. TD SCH ×2 (09:00→10:00)
[2020-03-13] MEDS: LACTOBACILLUS RHAMNOSUS GG 1 CAPSULE. PO SCH ×2 (09:59→20:15)
[2020-03-13] MEDS: ASPIRIN ENTERIC COATED 81 MG TABLET.DR. PO SCH (09:59)
[2020-03-13] MEDS: FOLIC ACID 1 MG TABLET PO SCH (09:59)
[2020-03-13] MEDS: POLYETHYLENE GLYCOL 3350 17 GM PACKET. PO SCH (09:59)
[2020-03-13] MEDS: SERTRALINE 25 MG TABLET. PO SCH (10:00)
[2020-03-13] MEDS: MULTIVITAMIN with MINERAL TABLET. PO SCH (10:00)
[2020-03-13] MEDS: RIVASTIGMINE 4.6MG PATCH. TD SCH (10:00)
[2020-03-13] MEDS: CYANOCOBALAMIN (VITAMIN B-12) 250 MCG TABLET PO SCH (10:00)
[2020-03-13 16:15] VITALS: BP 107/71
[2020-03-13] MEDS: levoFLOXacin 250 MG TABLET PO SCH (16:28)
[2020-03-13] MEDS: ATORVASTATIN CALCIUM 20 MG TABLET PO SCH (20:14)
[2020-03-13] MEDS: TAMSULOSIN 0.4 MG CAP.ER.24H. PO SCH (20:15)
[2020-03-13] MEDS: CYPROHEPTADINE 4 MG TABLET. PO SCH (20:15)
[2020-03-13] MEDS: TERAZOSIN 5 MG CAPSULE. PO SCH (20:15)
[2020-03-13] MEDS: traZODone 50 MG TABLET. PO PRN (20:16)
[2020-03-14 05:42] VITALS: BP 128/78
--- NOTE | 2020-03-14 08:15 | PDOC ---
Exam Note: Jay Note: This is a late entry for DOS 03/13/2020. Please also refer to the separate dictated note~for this date of service dictated separately.~Patient seen individually. Discussed the patient with Nursing staff reviewed the chart.~Reviewed interim history and current functioning. Reviewed vital signs,~Labs/ Radiology~and current medications noted below. Continue current treatment with the changes noted in the dictated addendum note Assessment: Vital Signs/I&O: Vital Signs Date Time Temp Pulse Resp B/P (MAP) Pulse Ox O2 Delivery O2 Flow Rate FiO2 03/14/20 05:42 97.9 76 20 128/78 (95) 93 Room Air I & O 03/13/20 03/13/20 03/14/20 14:59 22:59 06:59 Intake Total 480 ml 340 ml Output Total 400 ml Balance 480 ml 340 ml -400 ml Current Medications: I have reviewed the current psychotropics carefully including drug interactions. Risk benefit ratio favors no change other than as noted in my dictated progress note. Diagnosis: Problems: (1) Medical clearance for psychiatric admission (2) Impulse control disorder, unspecified (3) Anxiety disorder, unspecified (4) Dementia, vascular, with depression (5) Dementia, vascular, with delusions (6) Dementia in Alzheimer's disease with depression (7) Dementia in Alzheimer's disease with delusions (8) Major neurocognitive disorder, due to vascular disease, with behavioral disturbance, mild (9) Major depressive disorder with psychotic features (10) Mild cognitive impairment (11) Urinary tract infection ELI BURLESON MD March 14, 2020 08:15
[2020-03-14] MEDS: ASPIRIN ENTERIC COATED 81 MG TABLET.DR. PO SCH (11:28)
[2020-03-14] MEDS: CHOLECALCIFEROL (VITAMIN D3) 50,000 UNIT CAPSULE PO SCH (11:28)
[2020-03-14] MEDS: RIVASTIGMINE 4.6MG PATCH. TD SCH (11:28)
[2020-03-14] MEDS: MULTIVITAMIN with MINERAL TABLET. PO SCH (11:29)
[2020-03-14] MEDS: LACTOBACILLUS RHAMNOSUS GG 1 CAPSULE. PO SCH ×2 (11:29→20:28)
[2020-03-14] MEDS: CYANOCOBALAMIN (VITAMIN B-12) 250 MCG TABLET PO SCH (11:29)
[2020-03-14] MEDS: POLYETHYLENE GLYCOL 3350 17 GM PACKET. PO SCH (11:29)
[2020-03-14] MEDS: FOLIC ACID 1 MG TABLET PO SCH (11:29)
[2020-03-14] MEDS: SERTRALINE 25 MG TABLET. PO SCH (11:29)
[2020-03-14 15:56] VITALS: BP 141/88
[2020-03-14] MEDS: levoFLOXacin 250 MG TABLET PO SCH (18:06)
[2020-03-14] MEDS: TAMSULOSIN 0.4 MG CAP.ER.24H. PO SCH (20:28)
[2020-03-14] MEDS: traZODone 50 MG TABLET. PO PRN (20:29)
[2020-03-14] MEDS: TERAZOSIN 5 MG CAPSULE. PO SCH (20:29)
[2020-03-14] MEDS: CYPROHEPTADINE 4 MG TABLET. PO SCH (20:29)
[2020-03-14] MEDS: ATORVASTATIN CALCIUM 20 MG TABLET PO SCH (20:29)
--- NOTE | 2020-03-14 22:07 | PDOC ---
Exam Note: Jay Note: Please also refer to the separate dictated note~for this date of service dictated separately.~Patient seen individually. Discussed the patient with Nursing staff reviewed the chart.~Reviewed interim history and current functioning. Reviewed vital signs,~Labs/ Radiology~and current medications noted below. Continue current treatment with the changes noted in the dictated addendum note Assessment: Vital Signs/I&O: Vital Signs Date Time Temp Pulse Resp B/P (MAP) Pulse Ox O2 Delivery O2 Flow Rate FiO2 03/14/20 20:29 94 141/88 03/14/20 18:35 97.7 03/14/20 15:56 18 90 03/14/20 05:42 Room Air I & O 03/13/20 03/13/20 03/14/20 15:00 23:00 07:00 Intake Total 480 ml 340 ml Output Total 400 ml Balance 480 ml 340 ml -400 ml Current Medications: I have reviewed the current psychotropics carefully including drug interactions. Risk benefit ratio favors no change other than as noted in my dictated progress note. Diagnosis: Problems: (1) Impulse control disorder, unspecified (2) Anxiety disorder, unspecified (3) Dementia, vascular, with depression (4) Dementia, vascular, with delusions (5) Dementia in Alzheimer's disease with depression (6) Dementia in Alzheimer's disease with delusions (7) Major neurocognitive disorder, due to vascular disease, with behavioral disturbance, mild (8) Major depressive disorder with psychotic features (9) Mild cognitive impairment (10) Urinary tract infection ELI BURLESON MD March 14, 2020 22:06
[2020-03-15 05:31] VITALS: BP 112/71
[2020-03-15 07:19] LABS: BASO % 1 % (0-3); EOS # 0.3 x10^3/uL (0.0-0.7); EOS % 6 % (0-3); HEMATOCRIT 34.7 % (39.0-53.0); HEMOGLOBIN 11.8 g/dL (13.0-17.5); LYMPH # 1.7 x10^3/uL (1.0-4.8); LYMPH % 30 % (24-48); MEAN CORPUSCULAR HEMOGLOBIN 31 pg (25-35); MEAN CORPUSCULAR HGB CONC 34 g/dL (31-37); MEAN CORPUSCULAR VOLUME 90 fL (79-100); MONO # 0.5 x10^3/uL (0.0-1.1); MONO % 8 % (0-9); NEUT # 3.2 x10^3uL (1.8-7.7); NEUT % 56 % (31-73); PLATELET COUNT 190 x10^3/uL (140-400); RED BLOOD COUNT 3.84 x10^6/uL (4.30-5.70); RED CELL DISTRIBUTION WIDTH 14.7 % (11.5-14.5); WHITE BLOOD COUNT 5.8 x10^3/uL (4.0-11.0)
--- NOTE | 2020-03-15 07:40 | PDOC ---
Exam Note: Jay Note: This note is a late entry for 03/13/2020 covers elements not covered in my initial note. Subjective: The patient was seen face to face in the evening of 03/13/2020. Nursing report was with Vero RUSSO. Discussed the patient with nursing staff reviewed the chart. He slept 7-1/2 hours. He takes his medications whole. He was on nicotine patch, states he has not smoked in a long time and will stop it. Levaquin has been discontinued for UTI, having completed the course. Review of Systems: Ambulation impaired, in wheelchair. No CV, GI/, Pulmonary, Eye system symptoms on review. Mental Status Exam: Oriented to himself and situation. The patient is very pleasant, verbal, smiling as I met with him individually. Speech has some latency, low in volume, coherent. Abstraction is fair. Computation is impaired. No active suicidal or homicidal ideation. Attention span is fair. Laboratory Data: Reviewed. 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 Urinary tract infection. Rest unchanged. Plan: No change from initial note. Assessment: Vital Signs/I&O: Vital Signs Date Time Temp Pulse Resp B/P (MAP) Pulse Ox O2 Delivery O2 Flow Rate FiO2 03/15/20 05:31 97.8 68 18 112/71 (85) 97 Room Air I & O 03/14/20 03/14/20 03/15/20 15:00 23:00 07:00 Intake Total 240 ml 360 ml Output Total 950 ml Balance 240 ml 360 ml -950 ml Labs: Laboratory Tests Test 03/15/20 06:30 White Blood Count 5.8 x10^3/uL (4.0-11.0) Red Blood Count 3.84 x10^6/uL (4.30-5.70) L Hemoglobin 11.8 g/dL (13.0-17.5) L Hematocrit 34.7 % (39.0-53.0) L Mean Corpuscular Volume 90 fL (79-100) Mean Corpuscular Hemoglobin 31 pg (25-35) Mean Corpuscular Hemoglobin Concent 34 g/dL (31-37) Red Cell Distribution Width 14.7 % (11.5-14.5) H Platelet Count 190 x10^3/uL (140-400) Neutrophils (%) (Auto) 56 % (31-73) Lymphocytes (%) (Auto) 30 % (24-48) Monocytes (%) (Auto) 8 % (0-9) Eosinophils (%) (Auto) 6 % (0-3) H Basophils (%) (Auto) 1 % (0-3) Neutrophils # (Auto) 3.2 x10^3uL (1.8-7.7) Lymphocytes # (Auto) 1.7 x10^3/uL (1.0-4.8) Monocytes # (Auto) 0.5 x10^3/uL (0.0-1.1) Eosinophils # (Auto) 0.3 x10^3/uL (0.0-0.7) Basophils # (Auto) 0.0 x10^3/uL (0.0-0.2) Current Medications: I have reviewed the current psychotropics carefully including drug interactions. Risk benefit ratio favors no change other than as noted in my dictated progress note. Diagnosis: Problems: (1) Impulse control disorder, unspecified (2) Anxiety disorder, unspecified (3) Dementia, vascular, with depression (4) Dementia, vascular, with delusions (5) Dementia in Alzheimer's disease with depression (6) Dementia in Alzheimer's disease with delusions (7) Major neurocognitive disorder, due to vascular disease, with behavioral disturbance, mild (8) Major depressive disorder with psychotic features (9) Mild cognitive impairment (10) Urinary tract infection ELI BURLESON MD March 15, 2020 07:40
[2020-03-15 07:46] LABS: ALBUMIN 2.6 g/dL (3.4-5.0); ALBUMIN/GLOBULIN RATIO 0.8 (1.0-1.7); CALCIUM 8.1 mg/dL (8.5-10.1); CREATININE 1.3 mg/dL (0.7-1.3); GFR 52.1; POTASSIUM 4.4 mmol/L (3.5-5.1); TOTAL BILIRUBIN 0.4 mg/dL (0.2-1.0); TOTAL PROTEIN 5.7 g/dL (6.4-8.2)
--- NOTE | 2020-03-15 08:03 | PDOC ---
Exam Note: Jay Note: This note is a late entry for 03/14/2020 covers elements not covered in my initial note. Subjective: The patient was seen face to face with the treatment team in the morning including Carol Ceron, ric Holly (social media content specialist), [facility], Activity [facility]. Nursing report was with Jose RUSSO. Discussed the patient with nursing staff in the evening reviewed the chart. He is sleeping reasonably. Appetite is 75%. He slept 8 hours previous night. He is cooperative, somewhat withdrawn. No behavior problems. Review of Systems: Ambulation impaired, in wheelchair. No CV, GI/, Pulmonary, Eye system symptoms on review. Mental Status Exam: Oriented to himself and situation. Speech has some latency, coherent. Abstraction is fair. Computation is impaired. Language function intact. He was obsessing about discharge plans addressed with him. Laboratory Data: Reviewed. 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 Urinary tract infection. Rest unchanged. Plan: No change from initial note. Continue Periactin for appetite stimulation and trazodone for insomnia, Exelon patch and Zoloft. Assessment: Vital Signs/I&O: Vital Signs Date Time Temp Pulse Resp B/P (MAP) Pulse Ox O2 Delivery O2 Flow Rate FiO2 03/15/20 05:31 97.8 68 18 112/71 (85) 97 Room Air I & O 03/14/20 03/14/20 03/15/20 15:00 23:00 07:00 Intake Total 240 ml 360 ml Output Total 950 ml Balance 240 ml 360 ml -950 ml Labs: Laboratory Tests Test 03/15/20 06:30 White Blood Count 5.8 x10^3/uL (4.0-11.0) Red Blood Count 3.84 x10^6/uL (4.30-5.70) L Hemoglobin 11.8 g/dL (13.0-17.5) L Hematocrit 34.7 % (39.0-53.0) L Mean Corpuscular Volume 90 fL (79-100) Mean Corpuscular Hemoglobin 31 pg (25-35) Mean Corpuscular Hemoglobin Concent 34 g/dL (31-37) Red Cell Distribution Width 14.7 % (11.5-14.5) H Platelet Count 190 x10^3/uL (140-400) Neutrophils (%) (Auto) 56 % (31-73) Lymphocytes (%) (Auto) 30 % (24-48) Monocytes (%) (Auto) 8 % (0-9) Eosinophils (%) (Auto) 6 % (0-3) H Basophils (%) (Auto) 1 % (0-3) Neutrophils # (Auto) 3.2 x10^3uL (1.8-7.7) Lymphocytes # (Auto) 1.7 x10^3/uL (1.0-4.8) Monocytes # (Auto) 0.5 x10^3/uL (0.0-1.1) Eosinophils # (Auto) 0.3 x10^3/uL (0.0-0.7) Basophils # (Auto) 0.0 x10^3/uL (0.0-0.2) Sodium Level 140 mmol/L (136-145) Potassium Level 4.4 mmol/L (3.5-5.1) Chloride Level 105 mmol/L (98-107) Carbon Dioxide Level 30 mmol/L (21-32) Anion Gap 5 (6-14) L Blood Urea Nitrogen 26 mg/dL (8-26) Creatinine 1.3 mg/dL (0.7-1.3) Estimated GFR (Cockcroft-Gault) 52.1 BUN/Creatinine Ratio 20 (6-20) Glucose Level 93 mg/dL (70-99) Calcium Level 8.1 mg/dL (8.5-10.1) L Total Bilirubin 0.4 mg/dL (0.2-1.0) Aspartate Amino Transferase (AST) 20 U/L (15-37) Alanine Aminotransferase (ALT) 27 U/L (16-63) Alkaline Phosphatase 80 U/L (46-116) Total Protein 5.7 g/dL (6.4-8.2) L Albumin 2.6 g/dL (3.4-5.0) L Albumin/Globulin Ratio 0.8 (1.0-1.7) L Current Medications: I have reviewed the current psychotropics carefully including drug interactions. Risk benefit ratio favors no change other than as noted in my dictated progress note. Diagnosis: Problems: (1) Impulse control disorder, unspecified (2) Anxiety disorder, unspecified (3) Dementia, vascular, with depression (4) Dementia, vascular, with delusions (5) Dementia in Alzheimer's disease with depression (6) Dementia in Alzheimer's disease with delusions (7) Major neurocognitive disorder, due to vascular disease, with behavioral disturbance, mild (8) Major depressive disorder with psychotic features (9) Mild cognitive impairment (10) Urinary tract infection ELI BURLESON MD March 15, 2020 08:03
[2020-03-15] MEDS: MULTIVITAMIN with MINERAL TABLET. PO SCH (11:35)
[2020-03-15] MEDS: ASPIRIN ENTERIC COATED 81 MG TABLET.DR. PO SCH (11:35)
[2020-03-15] MEDS: LACTOBACILLUS RHAMNOSUS GG 1 CAPSULE. PO SCH ×2 (11:35→20:21)
[2020-03-15] MEDS: FOLIC ACID 1 MG TABLET PO SCH (11:35)
[2020-03-15] MEDS: POLYETHYLENE GLYCOL 3350 17 GM PACKET. PO SCH (11:36)
[2020-03-15] MEDS: RIVASTIGMINE 4.6MG PATCH. TD SCH (11:36)
[2020-03-15] MEDS: CYANOCOBALAMIN (VITAMIN B-12) 250 MCG TABLET PO SCH (11:36)
[2020-03-15] MEDS: SERTRALINE 25 MG TABLET. PO SCH (11:36)
[2020-03-15 15:50] VITALS: BP 118/70
--- NOTE | 2020-03-15 16:39 | TX PLAN ---
Interdisciplinary Tx Plan Admission Information February 24, 2020 at 15:05 Legal Status (on Admission): Voluntary DPOA/Guardian Name: Tracy Godinez Contact Other Contact Name: Koffi Barragan Other Contact Verified Code Status: Full Code Allergies: Coded Allergies: caffeine (Verified Allergy, Unknown, 02/24/20) ranitidine (Verified Allergy, Unknown, 02/24/20) Diagnoses Primary Diagnosis: Major Neurocognitive D/O, Alzheimer's, Vascular with delusions/depressions Reasons for Admission: Aggressive, Combative, Confusion/Disoriented, Poor impulse control Problem in Patient's Words: Pt has been falling more and this last fall he actually broke something and has not been able to come back from it. Additional Admission Comments: According to the intake, pt is agitated, pulled out his catheter, lunged from the chair and grabbed staff, twisted staff arm, pinched nurse in the leg, hitting staff, and has insomnia Problems Active Problems: Drowsy Agitation Confusion Inactive Problems: Medication compliant Pt Strengths/Limitations Ability for [place]: Poor Cognitive Functioning/Ability: Poor Communication Skills/Ability: Fair Financial Resources: Fair Insight/Judgement: Poor Intellectual Ability: Fair Physical Health: Poor Social Skills: Poor Stability in Family: Fair Stability in School/Work: Poor Verbal Skills: Fair Discharge Criteria Discharge Criteria: Able meet basic life need, Adequate arrangements @DC, Verbal commit aftercare, Improved behavior, Improved mood/thought Preliminary Discharge Plan Preliminary DC Plan: Jail, Current Living Arrange. Special Precautions Fall Risk: Moderate Initial D/C Plan Pt will need to be re-evaluated for admission back to [facility]. Identified Discharge Needs: Needs to follow up with neurology Currently Utilized Resources Currently Utilized Resources/P: Primary Care Physician Referrals Community Resources: Neurology Identified Problems/Hx/Goals Objectives/Short-Term Goals Short Term Goals: Dec. Aggression, Dec. Outbursts, Medication Stabilization, Promote Coping Skill Short Term Goals in Patient's: I want to get back home. Interventions/Frequency Staff Interventions/Frequency&: Psychiatrist to assess pt 3x per week. Social Work to assess pt 2x per week. Nursing to assess and complete 15 minute checks daily. Encourage group participation in activities/1:1 time based on assessment/goals set by Activity Dept. 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 He then joined the [employer] and retired from the from there. 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 Education: Pt graduated high school Community Follow-up PCP Mental health services Treatment Plan Explained Patient/Superintendent Pressure had this treatment plan explained to him/her as indicated by the signature below and has been given the opportunity to ask questions and make suggestions: Date: Patient/Superintendent Pressure Signature: Status Update Update Pt is eating 75% of meals and sleeping on average 8 hours per night. Pt tends to sleep in most mornings but is compliant with all medication and cares once he is up. Pt can be very withdrawn to his room and needs encouragement to come out and participate in group activities. Pt has not exhibited any aggressive behavior since admission and has been treated for a UTI, which appears to be clearing. Pt does continue to have a josue, which gets flushed and irrigated PRN. MAGGIE, on pt dtr request, sent out referrals for placement, in which placements said no. Pt is getting re-evaluated for placement back to [place] for rehabilitation with discharge [facility]. MAGGIE will continue to work with all parties involved. CRISELDA VALVERDE March 15, 2020 16:39
[2020-03-15] MEDS: levoFLOXacin 250 MG TABLET PO SCH (17:41)
[2020-03-15] MEDS: traZODone 50 MG TABLET. PO PRN (20:20)
[2020-03-15] MEDS: CYPROHEPTADINE 4 MG TABLET. PO SCH (20:21)
[2020-03-15] MEDS: TAMSULOSIN 0.4 MG CAP.ER.24H. PO SCH (20:21)
[2020-03-15] MEDS: TERAZOSIN 5 MG CAPSULE. PO SCH (20:21)
[2020-03-15] MEDS: ATORVASTATIN CALCIUM 20 MG TABLET PO SCH (20:21)
--- NOTE | 2020-03-15 22:06 | PDOC ---
Exam Note: Jay Note: Please also refer to the separate dictated note~for this date of service dictated separately.~Patient seen individually. Discussed the patient with Nursing staff reviewed the chart.~Reviewed interim history and current functioning. Reviewed vital signs,~Labs/ Radiology~and current medications noted below. Continue current treatment with the changes noted in the dictated addendum note Assessment: Vital Signs/I&O: Vital Signs Date Time Temp Pulse Resp B/P (MAP) Pulse Ox O2 Delivery O2 Flow Rate FiO2 03/15/20 20:33 97.7 96 03/15/20 20:21 93 118/70 03/15/20 15:50 16 03/15/20 05:31 Room Air I & O 03/14/20 03/14/20 03/15/20 15:00 23:00 07:00 Intake Total 240 ml 360 ml Output Total 950 ml Balance 240 ml 360 ml -950 ml Labs: Laboratory Tests Test 03/15/20 06:30 White Blood Count 5.8 x10^3/uL (4.0-11.0) Red Blood Count 3.84 x10^6/uL (4.30-5.70) L Hemoglobin 11.8 g/dL (13.0-17.5) L Hematocrit 34.7 % (39.0-53.0) L Mean Corpuscular Volume 90 fL (79-100) Mean Corpuscular Hemoglobin 31 pg (25-35) Mean Corpuscular Hemoglobin Concent 34 g/dL (31-37) Red Cell Distribution Width 14.7 % (11.5-14.5) H Platelet Count 190 x10^3/uL (140-400) Neutrophils (%) (Auto) 56 % (31-73) Lymphocytes (%) (Auto) 30 % (24-48) Monocytes (%) (Auto) 8 % (0-9) Eosinophils (%) (Auto) 6 % (0-3) H Basophils (%) (Auto) 1 % (0-3) Neutrophils # (Auto) 3.2 x10^3uL (1.8-7.7) Lymphocytes # (Auto) 1.7 x10^3/uL (1.0-4.8) Monocytes # (Auto) 0.5 x10^3/uL (0.0-1.1) Eosinophils # (Auto) 0.3 x10^3/uL (0.0-0.7) Basophils # (Auto) 0.0 x10^3/uL (0.0-0.2) Sodium Level 140 mmol/L (136-145) Potassium Level 4.4 mmol/L (3.5-5.1) Chloride Level 105 mmol/L (98-107) Carbon Dioxide Level 30 mmol/L (21-32) Anion Gap 5 (6-14) L Blood Urea Nitrogen 26 mg/dL (8-26) Creatinine 1.3 mg/dL (0.7-1.3) Estimated GFR (Cockcroft-Gault) 52.1 BUN/Creatinine Ratio 20 (6-20) Glucose Level 93 mg/dL (70-99) Calcium Level 8.1 mg/dL (8.5-10.1) L Total Bilirubin 0.4 mg/dL (0.2-1.0) Aspartate Amino Transferase (AST) 20 U/L (15-37) Alanine Aminotransferase (ALT) 27 U/L (16-63) Alkaline Phosphatase 80 U/L (46-116) Total Protein 5.7 g/dL (6.4-8.2) L Albumin 2.6 g/dL (3.4-5.0) L Albumin/Globulin Ratio 0.8 (1.0-1.7) L Current Medications: I have reviewed the current psychotropics carefully including drug interactions. Risk benefit ratio favors no change other than as noted in my dictated progress note. Diagnosis: Problems: (1) Impulse control disorder, unspecified (2) Anxiety disorder, unspecified (3) Dementia, vascular, with depression (4) Dementia, vascular, with delusions (5) Dementia in Alzheimer's disease with depression (6) Dementia in Alzheimer's disease with delusions (7) Major neurocognitive disorder, due to vascular disease, with behavioral disturbance, mild (8) Major depressive disorder with psychotic features (9) Mild cognitive impairment (10) Urinary tract infection ELI BURLESON MD March 15, 2020 22:06
[2020-03-16 06:09] VITALS: BP 124/67
[2020-03-16] MEDS: LACTOBACILLUS RHAMNOSUS GG 1 CAPSULE. PO SCH ×2 (11:57→19:43)
[2020-03-16] MEDS: MULTIVITAMIN with MINERAL TABLET. PO SCH (11:57)
[2020-03-16] MEDS: ASPIRIN ENTERIC COATED 81 MG TABLET.DR. PO SCH (11:57)
[2020-03-16] MEDS: CYANOCOBALAMIN (VITAMIN B-12) 250 MCG TABLET PO SCH (11:57)
[2020-03-16] MEDS: POLYETHYLENE GLYCOL 3350 17 GM PACKET. PO SCH (11:58)
[2020-03-16] MEDS: RIVASTIGMINE 4.6MG PATCH. TD SCH (11:58)
[2020-03-16] MEDS: FOLIC ACID 1 MG TABLET PO SCH (11:58)
[2020-03-16] MEDS: SERTRALINE 25 MG TABLET. PO SCH (11:58)
[2020-03-16 16:12] VITALS: BP 119/71
[2020-03-16] MEDS: levoFLOXacin 250 MG TABLET PO SCH (17:37)
[2020-03-16] MEDS: CYPROHEPTADINE 4 MG TABLET. PO SCH (19:42)
[2020-03-16] MEDS: ATORVASTATIN CALCIUM 20 MG TABLET PO SCH (19:42)
[2020-03-16] MEDS: TAMSULOSIN 0.4 MG CAP.ER.24H. PO SCH (19:43)
[2020-03-16] MEDS: TERAZOSIN 5 MG CAPSULE. PO SCH (19:43)
--- NOTE | 2020-03-16 22:03 | PDOC ---
Exam Note: Jay Note: Please also refer to the separate dictated note~for this date of service dictated separately.~Patient seen individually. Discussed the patient with Nursing staff reviewed the chart.~Reviewed interim history and current functioning. Reviewed vital signs,~Labs/ Radiology~and current medications noted below. Continue current treatment with the changes noted in the dictated addendum note Assessment: Vital Signs/I&O: Vital Signs Date Time Temp Pulse Resp B/P (MAP) Pulse Ox O2 Delivery O2 Flow Rate FiO2 03/16/20 19:43 58 119/71 03/16/20 16:12 97.9 18 98 03/15/20 05:31 Room Air I & O 03/15/20 03/15/20 03/16/20 15:00 23:00 07:00 Intake Total 120 ml 460 ml Output Total 550 ml Balance 120 ml 460 ml -550 ml Current Medications: Meds: Current Medications Medications (Trade) Dose Ordered Sig/Nader Route PRN Reason Start Time Stop Time Status Last Admin Dose Admin Cyproheptadine HCl (Periactin) 4 mg HS PO 03/16/20 21:00 03/16/20 19:42 I have reviewed the current psychotropics carefully including drug interactions. Risk benefit ratio favors no change other than as noted in my dictated progress note. Diagnosis: Problems: (1) Impulse control disorder, unspecified (2) Anxiety disorder, unspecified (3) Dementia, vascular, with depression (4) Dementia, vascular, with delusions (5) Dementia in Alzheimer's disease with depression (6) Dementia in Alzheimer's disease with delusions (7) Major neurocognitive disorder, due to vascular disease, with behavioral disturbance, mild (8) Major depressive disorder with psychotic features (9) Mild cognitive impairment (10) Urinary tract infection ELI BURLESON MD March 16, 2020 22:03
[2020-03-17 05:49] VITALS: BP 101/62
--- NOTE | 2020-03-17 07:27 | PDOC ---
Exam Note: Jay Note: This note is a late entry for 03/15/2020 covers elements not covered in my initial note. Subjective: The patient was seen face to face in the evening. Nursing report was with Jose RUSSO. Discussed the patient with nursing staff in the evening reviewed the chart. He slept reasonably well previous night 9-1/2 hours. Review of Systems: Ambulation impaired, in wheelchair. No CV, GI/, Pulmonary, Eye system symptoms on review. Mental Status Exam: Oriented to himself and situation. He is pleasant, cooperative, verbal, interactive. Speech has some latency, coherent. Abstraction is fair. Computation is impaired. Language function intact. Short-term memory is impaired. Again as before he recognized me as a doctor, does not remember my name. Mood and affect is improved. No clear psychotic symptoms, suicidal or homicidal ideation. Laboratory Data: Reviewed. Impression: Major depressive disorder with psychotic features. Major allegra rocognitive disorder, Alzheimer, vascular with delusion, depression. Urinary tract infection. Rest unchanged. Plan: No change from initial note. We stopped his Zyprexa entirely and he was on 20 mg a day on admission and he has done well despite this. We will increase Exelon patch to 9.5 mg a day. Continue trazodone, Exelon patch, Zoloft and Periactin. Appetite is better but if it reduces again we will increase the Periactin. Assessment: Vital Signs/I&O: Vital Signs Date Time Temp Pulse Resp B/P (MAP) Pulse Ox O2 Delivery O2 Flow Rate FiO2 03/17/20 05:49 97.9 69 18 101/62 (75) 92 03/15/20 05:31 Room Air I & O 03/16/20 03/16/20 03/17/20 15:00 23:00 07:00 Intake Total 240 ml Output Total 750 ml Balance 240 ml -750 ml Current Medications: Meds: Current Medications Medications (Trade) Dose Ordered Sig/Nader Route PRN Reason Start Time Stop Time Status Last Admin Dose Admin Cyproheptadine HCl (Periactin) 4 mg HS PO 03/16/20 21:00 03/16/20 19:42 I have reviewed the current psychotropics carefully including drug interactions. Risk benefit ratio favors no change other than as noted in my dictated progress note. Diagnosis: Problems: (1) Impulse control disorder, unspecified (2) Anxiety disorder, unspecified (3) Dementia, vascular, with depression (4) Dementia, vascular, with delusions (5) Dementia in Alzheimer's disease with depression (6) Dementia in Alzheimer's disease with delusions (7) Major neurocognitive disorder, due to vascular disease, with behavioral disturbance, mild (8) Major depressive disorder with psychotic features (9) Mild cognitive impairment (10) Urinary tract infection ELI BURLESON MD March 17, 2020 07:27
--- NOTE | 2020-03-17 07:42 | PDOC ---
Exam Note: Jay Note: This note is a late entry for 03/16/2020 covers elements not covered in my initial note. Subjective: The patient was seen face to face in the evening. Nursing report was with Ines RUSSO. Discussed the patient with nursing staff in the evening reviewed the chart. He slept 8 hours previous night. Oral intake is poor. We will increase the Periactin to 4 mg h.s. from current 2 mg h.s. Review of Systems: Ambulation impaired, in wheelchair. No CV, GI/, Pulmonary, Eye system symptoms on review. Mental Status Exam: Oriented to himself and situation. He is pleasant, cooperative, verbal, interactive. Speech has some latency, coherent. Abstraction is fair. Computation is impaired. Language function intact. Short-term memory is impaired. Again as before he recognized me as a doctor, does not remember my name. I met with him in his room with his head down. Mood and affect is improved. No clear psychotic symptoms, suicidal or homicidal ideation. Laboratory Data: Reviewed. 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 Urinary tract infection resolved. Rest unchanged. Plan: No change from initial note. Increase Periactin to 4 mg h.s. Assessment: Vital Signs/I&O: Vital Signs Date Time Temp Pulse Resp B/P (MAP) Pulse Ox O2 Delivery O2 Flow Rate FiO2 03/17/20 05:49 97.9 69 18 101/62 (75) 92 03/15/20 05:31 Room Air I & O 03/16/20 03/16/20 03/17/20 15:00 23:00 07:00 Intake Total 240 ml Output Total 750 ml Balance 240 ml -750 ml Current Medications: Meds: Current Medications Medications (Trade) Dose Ordered Sig/Nader Route PRN Reason Start Time Stop Time Status Last Admin Dose Admin Cyproheptadine HCl (Periactin) 4 mg HS PO 03/16/20 21:00 03/16/20 19:42 I have reviewed the current psychotropics carefully including drug interactions. Risk benefit ratio favors no change other than as noted in my dictated progress note. Diagnosis: Problems: (1) Impulse control disorder, unspecified (2) Anxiety disorder, unspecified (3) Dementia, vascular, with depression (4) Dementia, vascular, with delusions (5) Dementia in Alzheimer's disease with depression (6) Dementia in Alzheimer's disease with delusions (7) Major neurocognitive disorder, due to vascular disease, with behavioral disturbance, mild (8) Major depressive disorder with psychotic features (9) Mild cognitive impairment (10) Urinary tract infection ELI BURLESON MD March 17, 2020 07:42
[2020-03-17] MEDS: LACTOBACILLUS RHAMNOSUS GG 1 CAPSULE. PO SCH ×2 (10:24→19:40)
[2020-03-17] MEDS: MULTIVITAMIN with MINERAL TABLET. PO SCH (10:25)
[2020-03-17] MEDS: FOLIC ACID 1 MG TABLET PO SCH (10:25)
[2020-03-17] MEDS: RIVASTIGMINE 4.6MG PATCH. TD SCH (10:25)
[2020-03-17] MEDS: POLYETHYLENE GLYCOL 3350 17 GM PACKET. PO SCH (10:25)
[2020-03-17] MEDS: CYANOCOBALAMIN (VITAMIN B-12) 250 MCG TABLET PO SCH (10:25)
[2020-03-17] MEDS: ASPIRIN ENTERIC COATED 81 MG TABLET.DR. PO SCH (10:25)
[2020-03-17] MEDS: SERTRALINE 25 MG TABLET. PO SCH (10:31)
[2020-03-17 15:24] VITALS: BP 106/64
[2020-03-17] MEDS: levoFLOXacin 250 MG TABLET PO SCH (18:00)
[2020-03-17] MEDS: ATORVASTATIN CALCIUM 20 MG TABLET PO SCH (19:40)
[2020-03-17] MEDS: CYPROHEPTADINE 4 MG TABLET. PO SCH (19:40)
[2020-03-17] MEDS: TAMSULOSIN 0.4 MG CAP.ER.24H. PO SCH (19:40)
[2020-03-17] MEDS: oxyCODONE IR 5 MG TABLET PO PRN (19:47)
[2020-03-17] MEDS: TERAZOSIN 5 MG CAPSULE. PO SCH (19:47)
--- NOTE | 2020-03-17 21:50 | PDOC ---
Exam Note: Jay Note: Please also refer to the separate dictated note~for this date of service dictated separately.~Patient seen individually. Discussed the patient with Nursing staff reviewed the chart.~Reviewed interim history and current functioning. Reviewed vital signs,~Labs/ Radiology~and current medications noted below. Continue current treatment with the changes noted in the dictated addendum note Assessment: Vital Signs/I&O: Vital Signs Date Time Temp Pulse Resp B/P (MAP) Pulse Ox O2 Delivery O2 Flow Rate FiO2 03/17/20 20:51 98.2 93 03/17/20 19:47 78 135/82 03/17/20 19:47 16 Room Air I & O 03/16/20 03/16/20 03/17/20 14:59 22:59 06:59 Intake Total 240 ml Output Total 750 ml Balance 240 ml -750 ml Current Medications: I have reviewed the current psychotropics carefully including drug interactions. Risk benefit ratio favors no change other than as noted in my dictated progress note. 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
[2020-03-18 06:03] VITALS: BP 110/71
[2020-03-18 08:38] LABS: BASO % 1 % (0-3); EOS # 0.3 x10^3/uL (0.0-0.7); EOS % 4 % (0-3); HEMATOCRIT 34.7 % (39.0-53.0); HEMOGLOBIN 11.8 g/dL (13.0-17.5); LYMPH # 1.4 x10^3/uL (1.0-4.8); LYMPH % 24 % (24-48); MEAN CORPUSCULAR HEMOGLOBIN 31 pg (25-35); MEAN CORPUSCULAR HGB CONC 34 g/dL (31-37); MEAN CORPUSCULAR VOLUME 91 fL (79-100); MONO # 0.5 x10^3/uL (0.0-1.1); MONO % 8 % (0-9); NEUT # 3.8 x10^3uL (1.8-7.7); NEUT % 63 % (31-73); PLATELET COUNT 187 x10^3/uL (140-400); RED BLOOD COUNT 3.83 x10^6/uL (4.30-5.70); RED CELL DISTRIBUTION WIDTH 14.8 % (11.5-14.5)
[2020-03-18] MEDS: MULTIVITAMIN with MINERAL TABLET. PO SCH (08:42)
[2020-03-18] MEDS: CYANOCOBALAMIN (VITAMIN B-12) 250 MCG TABLET PO SCH (08:42)
[2020-03-18] MEDS: POLYETHYLENE GLYCOL 3350 17 GM PACKET. PO SCH (08:42)
[2020-03-18] MEDS: FOLIC ACID 1 MG TABLET PO SCH (08:42)
[2020-03-18] MEDS: ASPIRIN ENTERIC COATED 81 MG TABLET.DR. PO SCH (08:42)
[2020-03-18] MEDS: LACTOBACILLUS RHAMNOSUS GG 1 CAPSULE. PO SCH ×2 (08:42→19:43)
[2020-03-18] MEDS: SERTRALINE 25 MG TABLET. PO SCH (08:43)
[2020-03-18] MEDS: RIVASTIGMINE 4.6MG PATCH. TD SCH (08:43)
--- NOTE | 2020-03-18 08:49 | PDOC ---
Exam Note: Jay Note: This note is a late entry for 03/17/2020 covers elements not covered in my initial note. Subjective: The patient was seen face to face in the evening of 03/17/2020. Nursing report was with Ines RUSSO. Discussed the patient with nursing staff in the evening reviewed the chart. He slept 9 hours previous night. He took a nap during the day and slept quite a bit previous night as well. He remains a little anxious but otherwise, pleasant, recognized me as a doctor. Review of Systems: Ambulation impaired, in wheelchair. No CV, GI/, Pulmonary, Eye system symptoms on review. Mental Status Exam: Oriented to himself and situation. He is pleasant, cooperative, verbal, interactive. Speech has some latency, coherent. Abstraction is fair. Computation is impaired. Language function intact. Short-term memory is impaired. Again as before he recognized me as a doctor, does not remember my name. Mood and affect is improved. No clear psychotic symptoms, suicidal or homicidal ideation. Laboratory Data: Reviewed. 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 Urinary tract infection resolved. Rest unchanged. Plan: No change from initial note. Assessment: Vital Signs/I&O: Vital Signs Date Time Temp Pulse Resp B/P (MAP) Pulse Ox O2 Delivery O2 Flow Rate FiO2 03/18/20 08:33 97.9 93 03/18/20 06:03 70 18 110/71 (84) 03/17/20 22:00 Room Air I & O 03/17/20 03/17/20 03/18/20 15:00 23:00 07:00 Intake Total 0 ml 240 ml Output Total 475 ml Balance 0 ml 240 ml -475 ml Labs: Laboratory Tests Test 03/18/20 07:30 White Blood Count 6.0 x10^3/uL (4.0-11.0) Red Blood Count 3.83 x10^6/uL (4.30-5.70) L Hemoglobin 11.8 g/dL (13.0-17.5) L Hematocrit 34.7 % (39.0-53.0) L Mean Corpuscular Volume 91 fL (79-100) Mean Corpuscular Hemoglobin 31 pg (25-35) Mean Corpuscular Hemoglobin Concent 34 g/dL (31-37) Red Cell Distribution Width 14.8 % (11.5-14.5) H Platelet Count 187 x10^3/uL (140-400) Neutrophils (%) (Auto) 63 % (31-73) Lymphocytes (%) (Auto) 24 % (24-48) Monocytes (%) (Auto) 8 % (0-9) Eosinophils (%) (Auto) 4 % (0-3) H Basophils (%) (Auto) 1 % (0-3) Neutrophils # (Auto) 3.8 x10^3uL (1.8-7.7) Lymphocytes # (Auto) 1.4 x10^3/uL (1.0-4.8) Monocytes # (Auto) 0.5 x10^3/uL (0.0-1.1) Eosinophils # (Auto) 0.3 x10^3/uL (0.0-0.7) Basophils # (Auto) 0.0 x10^3/uL (0.0-0.2) Current Medications: I have reviewed the current psychotropics carefully including drug interactions. Risk benefit ratio favors no change other than as noted in my dictated progress note. 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
[2020-03-18 08:59] LABS: ALBUMIN 2.8 g/dL (3.4-5.0); CALCIUM 8.1 mg/dL (8.5-10.1); CREATININE 1.3 mg/dL (0.7-1.3); GFR 52.1; POTASSIUM 3.8 mmol/L (3.5-5.1); TOTAL BILIRUBIN 0.4 mg/dL (0.2-1.0); TOTAL PROTEIN 5.7 g/dL (6.4-8.2)
[2020-03-18 15:26] VITALS: BP 119/75
[2020-03-18] MEDS: levoFLOXacin 250 MG TABLET PO SCH (17:09)
[2020-03-18] MEDS: TERAZOSIN 5 MG CAPSULE. PO SCH (19:43)
[2020-03-18] MEDS: TAMSULOSIN 0.4 MG CAP.ER.24H. PO SCH (19:43)
[2020-03-18] MEDS: ATORVASTATIN CALCIUM 20 MG TABLET PO SCH (19:43)
[2020-03-18] MEDS: CYPROHEPTADINE 4 MG TABLET. PO SCH (19:43)
--- NOTE | 2020-03-18 21:55 | PDOC ---
Exam Note: Jay Note: Please also refer to the separate dictated note~for this date of service dictated separately.~Patient seen individually. Discussed the patient with Nursing staff reviewed the chart.~Reviewed interim history and current functioning. Reviewed vital signs,~Labs/ Radiology~and current medications noted below. Continue current treatment with the changes noted in the dictated addendum note Assessment: Vital Signs/I&O: Vital Signs Date Time Temp Pulse Resp B/P (MAP) Pulse Ox O2 Delivery O2 Flow Rate FiO2 03/18/20 20:58 98.0 97 03/18/20 19:43 77 119/75 03/18/20 15:26 18 03/17/20 22:00 Room Air I & O 03/17/20 03/17/20 03/18/20 15:00 23:00 07:00 Intake Total 0 ml 240 ml Output Total 475 ml Balance 0 ml 240 ml -475 ml Labs: Laboratory Tests Test 03/18/20 07:30 White Blood Count 6.0 x10^3/uL (4.0-11.0) Red Blood Count 3.83 x10^6/uL (4.30-5.70) L Hemoglobin 11.8 g/dL (13.0-17.5) L Hematocrit 34.7 % (39.0-53.0) L Mean Corpuscular Volume 91 fL (79-100) Mean Corpuscular Hemoglobin 31 pg (25-35) Mean Corpuscular Hemoglobin Concent 34 g/dL (31-37) Red Cell Distribution Width 14.8 % (11.5-14.5) H Platelet Count 187 x10^3/uL (140-400) Neutrophils (%) (Auto) 63 % (31-73) Lymphocytes (%) (Auto) 24 % (24-48) Monocytes (%) (Auto) 8 % (0-9) Eosinophils (%) (Auto) 4 % (0-3) H Basophils (%) (Auto) 1 % (0-3) Neutrophils # (Auto) 3.8 x10^3uL (1.8-7.7) Lymphocytes # (Auto) 1.4 x10^3/uL (1.0-4.8) Monocytes # (Auto) 0.5 x10^3/uL (0.0-1.1) Eosinophils # (Auto) 0.3 x10^3/uL (0.0-0.7) Basophils # (Auto) 0.0 x10^3/uL (0.0-0.2) Sodium Level 140 mmol/L (136-145) Potassium Level 3.8 mmol/L (3.5-5.1) Chloride Level 105 mmol/L (98-107) Carbon Dioxide Level 29 mmol/L (21-32) Anion Gap 6 (6-14) Blood Urea Nitrogen 29 mg/dL (8-26) H Creatinine 1.3 mg/dL (0.7-1.3) Estimated GFR (Cockcroft-Gault) 52.1 BUN/Creatinine Ratio 22 (6-20) H Glucose Level 100 mg/dL (70-99) H Calcium Level 8.1 mg/dL (8.5-10.1) L Total Bilirubin 0.4 mg/dL (0.2-1.0) Aspartate Amino Transferase (AST) 21 U/L (15-37) Alanine Aminotransferase (ALT) 26 U/L (16-63) Alkaline Phosphatase 89 U/L (46-116) Total Protein 5.7 g/dL (6.4-8.2) L Albumin 2.8 g/dL (3.4-5.0) L Albumin/Globulin Ratio 1.0 (1.0-1.7) Current Medications: I have reviewed the current psychotropics carefully including drug interactions. Risk benefit ratio favors no change other than as noted in my dictated progress note. 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
[2020-03-19 05:58] VITALS: BP 108/67
[2020-03-19] MEDS: POLYETHYLENE GLYCOL 3350 17 GM PACKET. PO SCH (08:46)
[2020-03-19] MEDS: ASPIRIN ENTERIC COATED 81 MG TABLET.DR. PO SCH (08:47)
[2020-03-19] MEDS: FOLIC ACID 1 MG TABLET PO SCH (08:47)
[2020-03-19] MEDS: LACTOBACILLUS RHAMNOSUS GG 1 CAPSULE. PO SCH ×2 (08:47→19:35)
[2020-03-19] MEDS: RIVASTIGMINE 4.6MG PATCH. TD SCH (08:48)
[2020-03-19] MEDS: MULTIVITAMIN with MINERAL TABLET. PO SCH (08:48)
[2020-03-19] MEDS: CYANOCOBALAMIN (VITAMIN B-12) 250 MCG TABLET PO SCH (08:48)
[2020-03-19] MEDS: SERTRALINE 25 MG TABLET. PO SCH (08:52)
[2020-03-19 16:17] VITALS: BP 105/66
[2020-03-19] MEDS: TAMSULOSIN 0.4 MG CAP.ER.24H. PO SCH (19:35)
[2020-03-19] MEDS: CYPROHEPTADINE 4 MG TABLET. PO SCH (19:36)
[2020-03-19] MEDS: TERAZOSIN 5 MG CAPSULE. PO SCH (19:36)
[2020-03-19] MEDS: ATORVASTATIN CALCIUM 20 MG TABLET PO SCH (19:36)
--- NOTE | 2020-03-19 22:05 | PDOC ---
Exam Note: Jay Note: Please also refer to the separate dictated note~for this date of service dictated separately.~Patient seen individually. Discussed the patient with Nursing staff reviewed the chart.~Reviewed interim history and current functioning. Reviewed vital signs,~Labs/ Radiology~and current medications noted below. Continue current treatment with the changes noted in the dictated addendum note Assessment: Vital Signs/I&O: Vital Signs Date Time Temp Pulse Resp B/P (MAP) Pulse Ox O2 Delivery O2 Flow Rate FiO2 03/19/20 21:06 97.6 94 03/19/20 19:36 80 105/66 03/19/20 16:17 18 03/17/20 22:00 Room Air I & O 03/18/20 03/18/20 03/19/20 15:00 23:00 07:00 Intake Total 720 ml 120 ml Output Total 500 ml Balance 720 ml 120 ml -500 ml Current Medications: I have reviewed the current psychotropics carefully including drug interactions. Risk benefit ratio favors no change other than as noted in my dictated progress note. Diagnosis: Problems: (1) Impulse control disorder, unspecified (2) Anxiety disorder, unspecified (3) Dementia, vascular, with depression (4) Dementia, vascular, with delusions (5) Dementia in Alzheimer's disease with depression (6) Dementia in Alzheimer's disease with delusions (7) Major neurocognitive disorder, due to vascular disease, with behavioral disturbance, mild (8) Major depressive disorder with psychotic features (9) Mild cognitive impairment (10) Urinary tract infection ELI BURLESON MD March 19, 2020 22:05
[2020-03-20 06:14] VITALS: BP 94/52
--- NOTE | 2020-03-20 07:49 | PDOC ---
Exam Note: Jay Note: This note is a late entry for 03/18/2020 covers elements not covered in my initial note. Subjective: The patient was seen face to face in the evening. Nursing report was with Nisa RUSSO. Discussed the patient with nursing staff in the evening reviewed the chart. He slept 8-1/4 hours previous night. I met with him in his room in the evening. He did well previous evening and during the day on 03/18/2020. Review of Systems: Ambulation impaired, in wheelchair. No CV, GI/, Pulmonary, Eye system symptoms on review. Mental Status Exam: Oriented to himself and situation. I met with him in his room. He was quite verbal, verbal, interactive asking me about my day. Speech has some latency, coherent. Abstraction is fair. Computation is impaired. Language function intact. Short-term memory is impaired. Mood and affect is improved. No paranoia. No clear psychotic symptoms, suicidal or homicidal ideation. Laboratory Data: Reviewed. 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 Urinary tract infection resolved. Rest unchanged. Plan: No change from initial note. Assessment: Vital Signs/I&O: Vital Signs Date Time Temp Pulse Resp B/P (MAP) Pulse Ox O2 Delivery O2 Flow Rate FiO2 03/20/20 06:14 98.2 71 18 94/52 (66) 94 03/17/20 22:00 Room Air I & O 03/19/20 03/19/20 03/20/20 14:59 22:59 06:59 Intake Total 480 ml 340 ml Output Total 800 ml 300 ml Balance 480 ml -460 ml -300 ml Current Medications: I have reviewed the current psychotropics carefully including drug interactions. Risk benefit ratio favors no change other than as noted in my dictated progress note. 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
[2020-03-20] MEDS: CYANOCOBALAMIN (VITAMIN B-12) 250 MCG TABLET PO SCH (08:42)
[2020-03-20] MEDS: POLYETHYLENE GLYCOL 3350 17 GM PACKET. PO SCH (08:42)
[2020-03-20] MEDS: FOLIC ACID 1 MG TABLET PO SCH (08:42)
[2020-03-20] MEDS: ASPIRIN ENTERIC COATED 81 MG TABLET.DR. PO SCH (08:42)
[2020-03-20] MEDS: SERTRALINE 25 MG TABLET. PO SCH (08:43)
[2020-03-20] MEDS: RIVASTIGMINE 4.6MG PATCH. TD SCH (08:43)
[2020-03-20] MEDS: MULTIVITAMIN with MINERAL TABLET. PO SCH (09:00)
[2020-03-20] MEDS: LACTOBACILLUS RHAMNOSUS GG 1 CAPSULE. PO SCH ×2 (09:00→19:31)
[2020-03-20 10:02] LABS: BASO % 0 % (0-3); EOS # 0.3 x10^3/uL (0.0-0.7); EOS % 5 % (0-3); HEMATOCRIT 37.6 % (39.0-53.0); HEMOGLOBIN 12.5 g/dL (13.0-17.5); LYMPH # 1.6 x10^3/uL (1.0-4.8); LYMPH % 29 % (24-48); MEAN CORPUSCULAR HEMOGLOBIN 30 pg (25-35); MEAN CORPUSCULAR HGB CONC 33 g/dL (31-37); MEAN CORPUSCULAR VOLUME 92 fL (79-100); MONO # 0.4 x10^3/uL (0.0-1.1); MONO % 8 % (0-9); NEUT # 3.1 x10^3uL (1.8-7.7); NEUT % 58 % (31-73); PLATELET COUNT 188 x10^3/uL (140-400); RED BLOOD COUNT 4.11 x10^6/uL (4.30-5.70); WHITE BLOOD COUNT 5.4 x10^3/uL (4.0-11.0)
[2020-03-20 10:21] LABS: ALBUMIN 3.1 g/dL (3.4-5.0); ALBUMIN/GLOBULIN RATIO 0.9 (1.0-1.7); CALCIUM 8.7 mg/dL (8.5-10.1); CREATININE 1.3 mg/dL (0.7-1.3); GFR 52.1; TOTAL BILIRUBIN 0.6 mg/dL (0.2-1.0); TOTAL PROTEIN 6.5 g/dL (6.4-8.2)
[2020-03-20 15:41] VITALS: BP 121/77
--- NOTE | 2020-03-20 16:46 | TX PLAN ---
Interdisciplinary Tx Plan Admission Information February 24, 2020 at 15:05 Legal Status (on Admission): Voluntary DPOA/Guardian Name: Tracy Godinez Contact Other Contact Name: Koffi Barragan Other Contact Verified Code Status: Full Code Allergies: Coded Allergies: caffeine (Verified Allergy, Unknown, 02/24/20) ranitidine (Verified Allergy, Unknown, 02/24/20) Diagnoses Primary Diagnosis: Major Neurocognitive D/O, Alzheimer's, Vascular with delusions/depressions Reasons for Admission: Aggressive, Combative, Confusion/Disoriented, Poor impulse control Problem in Patient's Words: Pt has been falling more and this last fall he actually broke something and has not been able to come back from it. Additional Admission Comments: According to the intake, pt is agitated, pulled out his catheter, lunged from the chair and grabbed staff, twisted staff arm, pinched nurse in the leg, hitting staff, and has insomnia Problems Active Problems: Drowsy Agitation Confusion Inactive Problems: Medication compliant Pt Strengths/Limitations Ability for [place]: Poor Cognitive Functioning/Ability: Poor Communication Skills/Ability: Fair Financial Resources: Fair Insight/Judgement: Poor Intellectual Ability: Fair Physical Health: Poor Social Skills: Poor Stability in Family: Fair Stability in School/Work: Poor Verbal Skills: Fair Discharge Criteria Discharge Criteria: Able meet basic life need, Adequate arrangements @DC, Verbal commit aftercare, Improved behavior, Improved mood/thought Preliminary Discharge Plan Preliminary DC Plan: Long Term, Current Living Arrange. Special Precautions Fall Risk: Moderate Initial D/C Plan Pt will need to be [facility]. Identified Discharge Needs: Needs to follow up with neurology Potential to have referrals sent to other placement Currently Utilized Resources Currently Utilized Resources/P: Primary Care Physician Referrals Community Resources: Neurology Identified Problems/Hx/Goals Objectives/Short-Term Goals Short Term Goals: Dec. Aggression, Dec. Outbursts, Medication Stabilization, Promote Coping Skill Short Term Goals in Patient's: I want to get back home. Interventions/Frequency Staff Interventions/Frequency&: Psychiatrist to assess pt 3x per week. Social Work to assess pt 2x per week. Nursing to assess and complete 15 minute checks daily. Encourage group participation in activities/1:1 time based on assessment/goals set by Activity Dept. 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 He then joined the [employer] and retired from the from there. 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 Education: Pt graduated high school Community Follow-up PCP Mental health services Treatment Plan Explained Patient/Food Beverage Attendant had this treatment plan explained to him/her as indicated by the signature below and has been given the opportunity to ask questions and make suggestions: Date: Patient/Food Beverage Attendant Signature: Status Update Update Pt is eating roughly less than 50% of meals and sleeping 9 hours a night. Pt is mostly calm and pleasant with staff and pt interaction; as well as compliant with all medications and cares. Pt does continue to have a josue and appears to fail the trials that allow him to go without a catheter. Pt placement does not feel that they can manage him. Pt was only at [facility] for 2 days prior to admission here; therefore, no 30 day notice is needed. MAGGIE has sent out other referrals and will plan to find placement for pt [facility] as pt behaviors do not appear to meet the continued need for placement on [facility]. MAGGIE will continue to work with the family on this matter. CRISELDA VALVERDE Mar 20, 2020 16:46
[2020-03-20] MEDS: ATORVASTATIN CALCIUM 20 MG TABLET PO SCH (19:31)
[2020-03-20] MEDS: CYPROHEPTADINE 4 MG TABLET. PO SCH (19:31)
[2020-03-20] MEDS: TERAZOSIN 5 MG CAPSULE. PO SCH (19:32)
[2020-03-20] MEDS: TAMSULOSIN 0.4 MG CAP.ER.24H. PO SCH (19:32)
--- NOTE | 2020-03-20 22:04 | PDOC ---
Exam Note: Jay Note: Please also refer to the separate dictated note~for this date of service dictated separately.~Patient seen individually. Discussed the patient with Nursing staff reviewed the chart.~Reviewed interim history and current functioning. Reviewed vital signs,~Labs/ Radiology~and current medications noted below. Continue current treatment with the changes noted in the dictated addendum note Assessment: Vital Signs/I&O: Vital Signs Date Time Temp Pulse Resp B/P (MAP) Pulse Ox O2 Delivery O2 Flow Rate FiO2 03/20/20 19:32 75 121/77 03/20/20 18:33 98.1 03/20/20 15:41 16 97 03/17/20 22:00 Room Air I & O 03/19/20 03/19/20 03/20/20 14:59 22:59 06:59 Intake Total 480 ml 340 ml Output Total 800 ml 300 ml Balance 480 ml -460 ml -300 ml Labs: Laboratory Tests Test 03/20/20 09:35 White Blood Count 5.4 x10^3/uL (4.0-11.0) Red Blood Count 4.11 x10^6/uL (4.30-5.70) L Hemoglobin 12.5 g/dL (13.0-17.5) L Hematocrit 37.6 % (39.0-53.0) L Mean Corpuscular Volume 92 fL (79-100) Mean Corpuscular Hemoglobin 30 pg (25-35) Mean Corpuscular Hemoglobin Concent 33 g/dL (31-37) Red Cell Distribution Width 15.0 % (11.5-14.5) H Platelet Count 188 x10^3/uL (140-400) Neutrophils (%) (Auto) 58 % (31-73) Lymphocytes (%) (Auto) 29 % (24-48) Monocytes (%) (Auto) 8 % (0-9) Eosinophils (%) (Auto) 5 % (0-3) H Basophils (%) (Auto) 0 % (0-3) Neutrophils # (Auto) 3.1 x10^3uL (1.8-7.7) Lymphocytes # (Auto) 1.6 x10^3/uL (1.0-4.8) Monocytes # (Auto) 0.4 x10^3/uL (0.0-1.1) Eosinophils # (Auto) 0.3 x10^3/uL (0.0-0.7) Basophils # (Auto) 0.0 x10^3/uL (0.0-0.2) Sodium Level 142 mmol/L (136-145) Potassium Level 4.0 mmol/L (3.5-5.1) Chloride Level 105 mmol/L (98-107) Carbon Dioxide Level 30 mmol/L (21-32) Anion Gap 7 (6-14) Blood Urea Nitrogen 28 mg/dL (8-26) H Creatinine 1.3 mg/dL (0.7-1.3) Estimated GFR (Cockcroft-Gault) 52.1 BUN/Creatinine Ratio 22 (6-20) H Glucose Level 123 mg/dL (70-99) H Calcium Level 8.7 mg/dL (8.5-10.1) Total Bilirubin 0.6 mg/dL (0.2-1.0) Aspartate Amino Transferase (AST) 20 U/L (15-37) Alanine Aminotransferase (ALT) 28 U/L (16-63) Alkaline Phosphatase 96 U/L (46-116) Total Protein 6.5 g/dL (6.4-8.2) Albumin 3.1 g/dL (3.4-5.0) L Albumin/Globulin Ratio 0.9 (1.0-1.7) L Current Medications: I have reviewed the current psychotropics carefully including drug interactions. Risk benefit ratio favors no change other than as noted in my dictated progress note. 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
[2020-03-21 06:32] VITALS: BP 103/62
--- NOTE | 2020-03-21 06:44 | PDOC ---
Exam Note: Jay Note: Please also refer to the separate dictated note~for this date of service dictated separately.~Patient seen individually. Discussed the patient with Nursing staff reviewed the chart.~Reviewed interim history and current functioning. Reviewed vital signs,~Labs/ Radiology~and current medications noted below. Continue current treatment with the changes noted in the dictated addendum note Assessment: Vital Signs/I&O: Vital Signs Date Time Temp Pulse Resp B/P (MAP) Pulse Ox O2 Delivery O2 Flow Rate FiO2 03/21/20 06:32 97.8 69 18 103/62 (76) 98 03/17/20 22:00 Room Air I & O 03/20/20 03/20/20 03/21/20 15:00 23:00 07:00 Intake Total 600 ml 300 ml Output Total 150 ml 375 ml Balance 450 ml 300 ml -375 ml Labs: Laboratory Tests Test 03/20/20 09:35 White Blood Count 5.4 x10^3/uL (4.0-11.0) Red Blood Count 4.11 x10^6/uL (4.30-5.70) L Hemoglobin 12.5 g/dL (13.0-17.5) L Hematocrit 37.6 % (39.0-53.0) L Mean Corpuscular Volume 92 fL (79-100) Mean Corpuscular Hemoglobin 30 pg (25-35) Mean Corpuscular Hemoglobin Concent 33 g/dL (31-37) Red Cell Distribution Width 15.0 % (11.5-14.5) H Platelet Count 188 x10^3/uL (140-400) Neutrophils (%) (Auto) 58 % (31-73) Lymphocytes (%) (Auto) 29 % (24-48) Monocytes (%) (Auto) 8 % (0-9) Eosinophils (%) (Auto) 5 % (0-3) H Basophils (%) (Auto) 0 % (0-3) Neutrophils # (Auto) 3.1 x10^3uL (1.8-7.7) Lymphocytes # (Auto) 1.6 x10^3/uL (1.0-4.8) Monocytes # (Auto) 0.4 x10^3/uL (0.0-1.1) Eosinophils # (Auto) 0.3 x10^3/uL (0.0-0.7) Basophils # (Auto) 0.0 x10^3/uL (0.0-0.2) Sodium Level 142 mmol/L (136-145) Potassium Level 4.0 mmol/L (3.5-5.1) Chloride Level 105 mmol/L (98-107) Carbon Dioxide Level 30 mmol/L (21-32) Anion Gap 7 (6-14) Blood Urea Nitrogen 28 mg/dL (8-26) H Creatinine 1.3 mg/dL (0.7-1.3) Estimated GFR (Cockcroft-Gault) 52.1 BUN/Creatinine Ratio 22 (6-20) H Glucose Level 123 mg/dL (70-99) H Calcium Level 8.7 mg/dL (8.5-10.1) Total Bilirubin 0.6 mg/dL (0.2-1.0) Aspartate Amino Transferase (AST) 20 U/L (15-37) Alanine Aminotransferase (ALT) 28 U/L (16-63) Alkaline Phosphatase 96 U/L (46-116) Total Protein 6.5 g/dL (6.4-8.2) Albumin 3.1 g/dL (3.4-5.0) L Albumin/Globulin Ratio 0.9 (1.0-1.7) L Current Medications: I have reviewed the current psychotropics carefully including drug interactions. Risk benefit ratio favors no change other than as noted in my dictated progress note. 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
[2020-03-21] MEDS: RIVASTIGMINE 4.6MG PATCH. TD SCH (08:32)
[2020-03-21] MEDS: CYANOCOBALAMIN (VITAMIN B-12) 250 MCG TABLET PO SCH (08:32)
[2020-03-21] MEDS: MULTIVITAMIN with MINERAL TABLET. PO SCH (08:32)
[2020-03-21] MEDS: ASPIRIN ENTERIC COATED 81 MG TABLET.DR. PO SCH (08:32)
[2020-03-21] MEDS: SERTRALINE 25 MG TABLET. PO SCH (08:32)
[2020-03-21] MEDS: FOLIC ACID 1 MG TABLET PO SCH (08:32)
[2020-03-21] MEDS: CHOLECALCIFEROL (VITAMIN D3) 50,000 UNIT CAPSULE PO SCH (08:33)
[2020-03-21] MEDS: LACTOBACILLUS RHAMNOSUS GG 1 CAPSULE. PO SCH ×2 (08:33→19:29)
[2020-03-21] MEDS: POLYETHYLENE GLYCOL 3350 17 GM PACKET. PO SCH (08:33)
[2020-03-21 15:55] VITALS: BP 128/76
[2020-03-21] MEDS: TERAZOSIN 5 MG CAPSULE. PO SCH (19:28)
[2020-03-21] MEDS: ATORVASTATIN CALCIUM 20 MG TABLET PO SCH (19:28)
[2020-03-21] MEDS: TAMSULOSIN 0.4 MG CAP.ER.24H. PO SCH (19:28)
[2020-03-21] MEDS: CYPROHEPTADINE 4 MG TABLET. PO SCH (19:29)
--- NOTE | 2020-03-21 21:37 | PDOC ---
Exam Note: Jay Note: Please also refer to the separate dictated note~for this date of service dictated separately.~Patient seen individually. Discussed the patient with Nursing staff reviewed the chart.~Reviewed interim history and current functioning. Reviewed vital signs,~Labs/ Radiology~and current medications noted below. Continue current treatment with the changes noted in the dictated addendum note Assessment: Vital Signs/I&O: Vital Signs Date Time Temp Pulse Resp B/P (MAP) Pulse Ox O2 Delivery O2 Flow Rate FiO2 03/21/20 19:28 70 128/76 03/21/20 18:18 97.4 03/21/20 15:55 16 94 03/17/20 22:00 Room Air I & O 03/20/20 03/20/20 03/21/20 15:00 23:00 07:00 Intake Total 600 ml 300 ml Output Total 150 ml 375 ml Balance 450 ml 300 ml -375 ml Current Medications: I have reviewed the current psychotropics carefully including drug interactions. Risk benefit ratio favors no change other than as noted in my dictated progress note. 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
[2020-03-22 06:07] VITALS: BP 111/59
--- NOTE | 2020-03-22 07:15 | PDOC ---
Exam Note: Jay Note: This note is a late entry for 03/20/2020 covers elements not covered in my initial note. Subjective: The patient was seen face to face with the treatment team in the morning of 03/20/2020 including Carol De Santiago, and Elayne (manager social media), [facility], [facility]. Nursing report was with Nisa RUSSO. Discussed the patients progress, diagnoses, psychosocial history, current psychotropics, discharge plans, current behaviors, sleep and appetite intake and social interactions. He slept 9 hours previous night. Appetite is approximately 40%. He has been more interactive, attending groups. Social service staff Jonnathan is actively trying to find placement for him. Review of Systems: Ambulation impaired, in wheelchair. No CV, GI/, Pulmonary, Eye system symptoms on review. Mental Status Exam: Oriented to himself and situation. He was quite verbal, interactive animated. Speech has some latency, coherent. Abstraction is fair. Computation is impaired. Language function intact. Short-term memory is impaired. Mood and affect is improved. No paranoia. No clear psychotic symptoms, suicidal or homicidal ideation. Laboratory Data: Reviewed. 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 Urinary tract infection resolved. Rest unchanged. Plan: No change from initial note. Assessment: Vital Signs/I&O: Vital Signs Date Time Temp Pulse Resp B/P (MAP) Pulse Ox O2 Delivery O2 Flow Rate FiO2 03/22/20 06:07 97.9 68 18 111/59 (76) 93 03/17/20 22:00 Room Air I & O 03/21/20 03/21/20 03/22/20 15:00 23:00 07:00 Intake Total 1080 ml 820 ml Output Total 250 ml 725 ml Balance 1080 ml 570 ml -725 ml Current Medications: I have reviewed the current psychotropics carefully including drug interactions. Risk benefit ratio favors no change other than as noted in my dictated progress note. Diagnosis: Problems: (1) Impulse control disorder, unspecified (2) Anxiety disorder, unspecified (3) Dementia, vascular, with depression (4) Dementia, vascular, with delusions (5) Dementia in Alzheimer's disease with depression (6) Dementia in Alzheimer's disease with delusions (7) Major neurocognitive disorder, due to vascular disease, with behavioral disturbance, mild (8) Major depressive disorder with psychotic features (9) Mild cognitive impairment (10) Urinary tract infection ELI BURLESON MD Mar 22, 2020 07:15
[2020-03-22] MEDS: ASPIRIN ENTERIC COATED 81 MG TABLET.DR. PO SCH (08:14)
[2020-03-22] MEDS: RIVASTIGMINE 4.6MG PATCH. TD SCH (08:14)
[2020-03-22] MEDS: MULTIVITAMIN with MINERAL TABLET. PO SCH (08:14)
[2020-03-22] MEDS: LACTOBACILLUS RHAMNOSUS GG 1 CAPSULE. PO SCH ×2 (08:15→19:57)
[2020-03-22] MEDS: SERTRALINE 25 MG TABLET. PO SCH (08:15)
[2020-03-22] MEDS: FOLIC ACID 1 MG TABLET PO SCH (08:15)
[2020-03-22] MEDS: CYANOCOBALAMIN (VITAMIN B-12) 250 MCG TABLET PO SCH (08:15)
[2020-03-22] MEDS: POLYETHYLENE GLYCOL 3350 17 GM PACKET. PO SCH (08:15)
[2020-03-22 16:14] VITALS: BP 110/55
[2020-03-22] MEDS: ATORVASTATIN CALCIUM 20 MG TABLET PO SCH (19:57)
[2020-03-22] MEDS: TERAZOSIN 5 MG CAPSULE. PO SCH (19:58)
[2020-03-22] MEDS: TAMSULOSIN 0.4 MG CAP.ER.24H. PO SCH (19:58)
[2020-03-22] MEDS: CYPROHEPTADINE 4 MG TABLET. PO SCH (19:58)
--- NOTE | 2020-03-22 22:02 | PDOC ---
Exam Note: Jay Note: Please also refer to the separate dictated note~for this date of service dictated separately.~Patient seen individually. Discussed the patient with Nursing staff reviewed the chart.~Reviewed interim history and current functioning. Reviewed vital signs,~Labs/ Radiology~and current medications noted below. Continue current treatment with the changes noted in the dictated addendum note Assessment: Vital Signs/I&O: Vital Signs Date Time Temp Pulse Resp B/P (MAP) Pulse Ox O2 Delivery O2 Flow Rate FiO2 03/22/20 20:19 98.2 93 03/22/20 19:58 80 110/55 03/22/20 16:14 16 03/17/20 22:00 Room Air I & O 03/21/20 03/21/20 03/22/20 15:00 23:00 07:00 Intake Total 1080 ml 820 ml Output Total 250 ml 725 ml Balance 1080 ml 570 ml -725 ml Current Medications: I have reviewed the current psychotropics carefully including drug interactions. Risk benefit ratio favors no change other than as noted in my dictated progress note. Diagnosis: Problems: (1) Impulse control disorder, unspecified (2) Anxiety disorder, unspecified (3) Dementia, vascular, with depression (4) Dementia, vascular, with delusions (5) Dementia in Alzheimer's disease with depression (6) Dementia in Alzheimer's disease with delusions (7) Major neurocognitive disorder, due to vascular disease, with behavioral disturbance, mild (8) Major depressive disorder with psychotic features (9) Mild cognitive impairment (10) Urinary tract infection ELI BURLESON MD Mar 22, 2020 22:02
--- NOTE | 2020-03-22 22:02 | PDOC ---
Exam Note: Jay Note: This note is a late entry for 03/21/2020 covers elements not covered in my initial note. Subjective: The patient was seen face to face in the evening of 03/21/2020. Nursing report was with Jose RUSSO. He slept 8-3/4 hours previous night. I met with him in his room, somewhat withdrawn. No behaviors previous night. Appetite is better. Review of Systems: Ambulation impaired, in wheelchair. No CV, GI/, Pulmonary, Eye system symptoms on review. Mental Status Exam: Oriented to himself and situation. He was quite verbal, interactive animated. Speech has some latency, coherent. Abstraction is fair. Computation is impaired. Language function intact. Short-term memory is impaired. Mood and affect is improved. No paranoia. No clear psychotic symptoms, suicidal or homicidal ideation. Laboratory Data: Reviewed. 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 Rest unchanged. Plan: No change from initial note. Assessment: Vital Signs/I&O: Vital Signs Date Time Temp Pulse Resp B/P (MAP) Pulse Ox O2 Delivery O2 Flow Rate FiO2 03/22/20 20:19 98.2 93 03/22/20 19:58 80 110/55 03/22/20 16:14 16 03/17/20 22:00 Room Air I & O 03/21/20 03/21/20 03/22/20 15:00 23:00 07:00 Intake Total 1080 ml 820 ml Output Total 250 ml 725 ml Balance 1080 ml 570 ml -725 ml Current Medications: I have reviewed the current psychotropics carefully including drug interactions. Risk benefit ratio favors no change other than as noted in my dictated progress note. Diagnosis: Problems: (1) Impulse control disorder, unspecified (2) Anxiety disorder, unspecified (3) Dementia, vascular, with depression (4) Dementia, vascular, with delusions (5) Dementia in Alzheimer's disease with depression (6) Dementia in Alzheimer's disease with delusions (7) Major neurocognitive disorder, due to vascular disease, with behavioral disturbance, mild (8) Major depressive disorder with psychotic features (9) Mild cognitive impairment (10) Urinary tract infection ELI BURLESON MD Mar 22, 2020 22:02
[2020-03-23 05:18] VITALS: BP 94/65
[2020-03-23 07:24] LABS: ALBUMIN 2.7 g/dL (3.4-5.0); ALBUMIN/GLOBULIN RATIO 0.9 (1.0-1.7); CALCIUM 8.2 mg/dL (8.5-10.1); CREATININE 1.2 mg/dL (0.7-1.3); GFR 57.1; POTASSIUM 4.1 mmol/L (3.5-5.1); TOTAL BILIRUBIN 0.6 mg/dL (0.2-1.0); TOTAL PROTEIN 5.6 g/dL (6.4-8.2)
[2020-03-23 09:30] LABS: BASO % 1 % (0-3); EOS # 0.2 x10^3/uL (0.0-0.7); EOS % 4 % (0-3); HEMATOCRIT 34.2 % (39.0-53.0); HEMOGLOBIN 11.6 g/dL (13.0-17.5); LYMPH # 1.5 x10^3/uL (1.0-4.8); LYMPH % 34 % (24-48); MEAN CORPUSCULAR HEMOGLOBIN 31 pg (25-35); MEAN CORPUSCULAR HGB CONC 34 g/dL (31-37); MEAN CORPUSCULAR VOLUME 91 fL (79-100); MONO # 0.5 x10^3/uL (0.0-1.1); MONO % 11 % (0-9); NEUT # 2.3 x10^3uL (1.8-7.7); NEUT % 50 % (31-73); PLATELET COUNT 181 x10^3/uL (140-400); RED BLOOD COUNT 3.76 x10^6/uL (4.30-5.70); RED CELL DISTRIBUTION WIDTH 14.9 % (11.5-14.5); WHITE BLOOD COUNT 4.5 x10^3/uL (4.0-11.0)
[2020-03-23] MEDS: MULTIVITAMIN with MINERAL TABLET. PO SCH (11:08)
[2020-03-23] MEDS: LACTOBACILLUS RHAMNOSUS GG 1 CAPSULE. PO SCH ×2 (11:08→20:32)
[2020-03-23] MEDS: CYANOCOBALAMIN (VITAMIN B-12) 250 MCG TABLET PO SCH (11:09)
[2020-03-23] MEDS: SERTRALINE 25 MG TABLET. PO SCH (11:09)
[2020-03-23] MEDS: ASPIRIN ENTERIC COATED 81 MG TABLET.DR. PO SCH (11:09)
[2020-03-23] MEDS: POLYETHYLENE GLYCOL 3350 17 GM PACKET. PO SCH (11:09)
[2020-03-23] MEDS: FOLIC ACID 1 MG TABLET PO SCH (11:09)
[2020-03-23] MEDS: RIVASTIGMINE 4.6MG PATCH. TD SCH (11:10)
[2020-03-23 15:46] VITALS: BP 121/85
[2020-03-23] MEDS: CYPROHEPTADINE 4 MG TABLET. PO SCH (20:32)
[2020-03-23] MEDS: ATORVASTATIN CALCIUM 20 MG TABLET PO SCH (20:32)
[2020-03-23] MEDS: TERAZOSIN 5 MG CAPSULE. PO SCH (20:32)
[2020-03-23] MEDS: TAMSULOSIN 0.4 MG CAP.ER.24H. PO SCH (20:32)
--- NOTE | 2020-03-23 22:00 | PDOC ---
Exam Note: Jay Note: Please also refer to the separate dictated note~for this date of service dictated separately.~Patient seen individually. Discussed the patient with Nursing staff reviewed the chart.~Reviewed interim history and current functioning. Reviewed vital signs,~Labs/ Radiology~and current medications noted below. Continue current treatment with the changes noted in the dictated addendum note Assessment: Vital Signs/I&O: Vital Signs Date Time Temp Pulse Resp B/P (MAP) Pulse Ox O2 Delivery O2 Flow Rate FiO2 03/23/20 20:32 91 121/85 03/23/20 18:01 98.1 03/23/20 15:46 95 03/23/20 05:18 18 03/17/20 22:00 Room Air I & O 03/22/20 03/22/20 03/23/20 15:00 23:00 07:00 Intake Total 720 ml 240 ml Balance 720 ml 240 ml Labs: Laboratory Tests Test 03/23/20 06:22 White Blood Count 4.5 x10^3/uL (4.0-11.0) Red Blood Count 3.76 x10^6/uL (4.30-5.70) L Hemoglobin 11.6 g/dL (13.0-17.5) L Hematocrit 34.2 % (39.0-53.0) L Mean Corpuscular Volume 91 fL (79-100) Mean Corpuscular Hemoglobin 31 pg (25-35) Mean Corpuscular Hemoglobin Concent 34 g/dL (31-37) Red Cell Distribution Width 14.9 % (11.5-14.5) H Platelet Count 181 x10^3/uL (140-400) Neutrophils (%) (Auto) 50 % (31-73) Lymphocytes (%) (Auto) 34 % (24-48) Monocytes (%) (Auto) 11 % (0-9) H Eosinophils (%) (Auto) 4 % (0-3) H Basophils (%) (Auto) 1 % (0-3) Neutrophils # (Auto) 2.3 x10^3uL (1.8-7.7) Lymphocytes # (Auto) 1.5 x10^3/uL (1.0-4.8) Monocytes # (Auto) 0.5 x10^3/uL (0.0-1.1) Eosinophils # (Auto) 0.2 x10^3/uL (0.0-0.7) Basophils # (Auto) 0.0 x10^3/uL (0.0-0.2) Sodium Level 142 mmol/L (136-145) Potassium Level 4.1 mmol/L (3.5-5.1) Chloride Level 106 mmol/L (98-107) Carbon Dioxide Level 30 mmol/L (21-32) Anion Gap 6 (6-14) Blood Urea Nitrogen 22 mg/dL (8-26) Creatinine 1.2 mg/dL (0.7-1.3) Estimated GFR (Cockcroft-Gault) 57.1 BUN/Creatinine Ratio 18 (6-20) Glucose Level 85 mg/dL (70-99) Calcium Level 8.2 mg/dL (8.5-10.1) L Total Bilirubin 0.6 mg/dL (0.2-1.0) Aspartate Amino Transferase (AST) 21 U/L (15-37) Alanine Aminotransferase (ALT) 27 U/L (16-63) Alkaline Phosphatase 80 U/L (46-116) Total Protein 5.6 g/dL (6.4-8.2) L Albumin 2.7 g/dL (3.4-5.0) L Albumin/Globulin Ratio 0.9 (1.0-1.7) L Current Medications: I have reviewed the current psychotropics carefully including drug interactions. Risk benefit ratio favors no change other than as noted in my dictated progress note. Diagnosis: Problems: (1) Impulse control disorder, unspecified (2) Anxiety disorder, unspecified (3) Dementia, vascular, with depression (4) Dementia, vascular, with delusions (5) Dementia in Alzheimer's disease with depression (6) Dementia in Alzheimer's disease with delusions (7) Major neurocognitive disorder, due to vascular disease, with behavioral disturbance, mild (8) Major depressive disorder with psychotic features (9) Mild cognitive impairment (10) Urinary tract infection ELI BURLESON MD Mar 23, 2020 22:00
[2020-03-24 06:32] VITALS: BP 111/68
--- NOTE | 2020-03-24 07:34 | PDOC ---
Exam Note: Jay Note: This note is a late entry for 03/22/2020 covers elements not covered in my initial note. Subjective: The patient was seen face to face in the evening of 03/22/2020. Nursing report was with Jose RUSSO. He slept 8-3/4 hours previous night. He is compliant with medications. I met with him in his room in the evening. The patient has been reasonably stable, confused, somewhat withdrawn. He sleeps off and on during the day. Review of Systems: Ambulation impaired, in wheelchair. No CV, GI/, pulmonary, eye system symptoms on review. Mental Status Exam: Oriented to himself and situation. He was quite verbal, interactive animated. Speech has some latency, coherent. Abstraction is fair. Computation is impaired. Language function intact. Short-term memory is impaired. Mood and affect is improved. No paranoia. No clear psychotic symptoms, suicidal or homicidal ideation. Laboratory Data: Reviewed. 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 Rest unchanged. Plan: No change from initial note. Assessment: Vital Signs/I&O: Vital Signs Date Time Temp Pulse Resp B/P (MAP) Pulse Ox O2 Delivery O2 Flow Rate FiO2 03/24/20 06:32 97.8 67 14 111/68 (82) 93 I & O 03/23/20 03/23/20 03/24/20 15:00 23:00 07:00 Intake Total 120 ml 320 ml Output Total 750 ml Balance 120 ml 320 ml -750 ml Current Medications: I have reviewed the current psychotropics carefully including drug interactions. Risk benefit ratio favors no change other than as noted in my dictated progress note. Diagnosis: Problems: (1) Impulse control disorder, unspecified (2) Anxiety disorder, unspecified (3) Dementia, vascular, with depression (4) Dementia, vascular, with delusions (5) Dementia in Alzheimer's disease with depression (6) Dementia in Alzheimer's disease with delusions (7) Major neurocognitive disorder, due to vascular disease, with behavioral disturbance, mild (8) Major depressive disorder with psychotic features (9) Mild cognitive impairment (10) Urinary tract infection ELI BURLESON MD Mar 24, 2020 07:34
--- NOTE | 2020-03-24 07:52 | PDOC ---
Exam Note: Jay Note: This note is a late entry for 03/23/2020 covers elements not covered in my initial note. Subjective: The patient was seen face to face in the evening of 03/23/2020. Nursing report was with Zunilda RUSSO. He slept 9-3/4 hours previous night. He slept off and on during the day. He would get up for supper. I met with him in his room in the evening. Review of Systems: Ambulation impaired, in wheelchair. No CV, GI/, pulmonary, eye system symptoms on review. Mental Status Exam: Oriented to himself and situation. He was quite verbal, interactive animated. Speech has some latency, coherent. Abstraction is fair. Computation is impaired. Language function intact. Short-term memory is impaired. Mood and affect is improved. No paranoia. No clear psychotic symptoms, suicidal or homicidal ideation. Laboratory Data: Reviewed. 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 Rest unchanged. Plan: No change from initial note. Assessment: Vital Signs/I&O: Vital Signs Date Time Temp Pulse Resp B/P (MAP) Pulse Ox O2 Delivery O2 Flow Rate FiO2 03/24/20 06:32 97.8 67 14 111/68 (82) 93 I & O 03/23/20 03/23/20 03/24/20 15:00 23:00 07:00 Intake Total 120 ml 320 ml Output Total 750 ml Balance 120 ml 320 ml -750 ml Current Medications: I have reviewed the current psychotropics carefully including drug interactions. Risk benefit ratio favors no change other than as noted in my dictated progress note. Diagnosis: Problems: (1) Impulse control disorder, unspecified (2) Anxiety disorder, unspecified (3) Dementia, vascular, with depression (4) Dementia, vascular, with delusions (5) Dementia in Alzheimer's disease with depression (6) Dementia in Alzheimer's disease with delusions (7) Major neurocognitive disorder, due to vascular disease, with behavioral disturbance, mild (8) Major depressive disorder with psychotic features (9) Mild cognitive impairment (10) Urinary tract infection ELI BURLESON MD Mar 24, 2020 07:52
[2020-03-24] MEDS: LACTOBACILLUS RHAMNOSUS GG 1 CAPSULE. PO SCH ×2 (11:16→20:04)
[2020-03-24] MEDS: POLYETHYLENE GLYCOL 3350 17 GM PACKET. PO SCH (11:16)
[2020-03-24] MEDS: ASPIRIN ENTERIC COATED 81 MG TABLET.DR. PO SCH (11:16)
[2020-03-24] MEDS: CYANOCOBALAMIN (VITAMIN B-12) 250 MCG TABLET PO SCH (11:16)
[2020-03-24] MEDS: MULTIVITAMIN with MINERAL TABLET. PO SCH (11:16)
[2020-03-24] MEDS: FOLIC ACID 1 MG TABLET PO SCH (11:16)
[2020-03-24] MEDS: SERTRALINE 25 MG TABLET. PO SCH (11:16)
[2020-03-24] MEDS: RIVASTIGMINE 4.6MG PATCH. TD SCH (11:17)
[2020-03-24 16:22] VITALS: BP 116/77
[2020-03-24] MEDS: TAMSULOSIN 0.4 MG CAP.ER.24H. PO SCH (20:04)
[2020-03-24] MEDS: TERAZOSIN 5 MG CAPSULE. PO SCH (20:05)
[2020-03-24] MEDS: CYPROHEPTADINE 4 MG TABLET. PO SCH (20:05)
[2020-03-24] MEDS: ATORVASTATIN CALCIUM 20 MG TABLET PO SCH (20:05)
--- NOTE | 2020-03-24 22:11 | PDOC ---
Exam Note: Jay Note: Please also refer to the separate dictated note~for this date of service dictated separately.~Patient seen individually. Discussed the patient with Nursing staff reviewed the chart.~Reviewed interim history and current functioning. Reviewed vital signs,~Labs/ Radiology~and current medications noted below. Continue current treatment with the changes noted in the dictated addendum note Assessment: Vital Signs/I&O: Vital Signs Date Time Temp Pulse Resp B/P (MAP) Pulse Ox O2 Delivery O2 Flow Rate FiO2 03/24/20 21:46 97.9 94 03/24/20 20:05 72 116/77 03/24/20 16:22 18 I & O 03/23/20 03/23/20 03/24/20 15:00 23:00 07:00 Intake Total 120 ml 320 ml Output Total 750 ml Balance 120 ml 320 ml -750 ml Current Medications: I have reviewed the current psychotropics carefully including drug interactions. Risk benefit ratio favors no change other than as noted in my dictated progress note. Diagnosis: Problems: (1) Impulse control disorder, unspecified (2) Anxiety disorder, unspecified (3) Dementia, vascular, with depression (4) Dementia, vascular, with delusions (5) Dementia in Alzheimer's disease with depression (6) Dementia in Alzheimer's disease with delusions (7) Major neurocognitive disorder, due to vascular disease, with behavioral disturbance, mild (8) Major depressive disorder with psychotic features (9) Mild cognitive impairment (10) Urinary tract infection ELI BURLESON MD Mar 24, 2020 22:11
[2020-03-25 06:00] VITALS: BP 110/55
[2020-03-25 07:45] LABS: BASO % 1 % (0-3); EOS # 0.2 x10^3/uL (0.0-0.7); EOS % 4 % (0-3); HEMATOCRIT 34.1 % (39.0-53.0); HEMOGLOBIN 11.6 g/dL (13.0-17.5); LYMPH # 1.3 x10^3/uL (1.0-4.8); LYMPH % 27 % (24-48); MEAN CORPUSCULAR HEMOGLOBIN 31 pg (25-35); MEAN CORPUSCULAR HGB CONC 34 g/dL (31-37); MEAN CORPUSCULAR VOLUME 91 fL (79-100); MONO # 0.5 x10^3/uL (0.0-1.1); MONO % 11 % (0-9); NEUT # 2.7 x10^3uL (1.8-7.7); NEUT % 57 % (31-73); PLATELET COUNT 169 x10^3/uL (140-400); RED BLOOD COUNT 3.74 x10^6/uL (4.30-5.70); RED CELL DISTRIBUTION WIDTH 14.8 % (11.5-14.5); WHITE BLOOD COUNT 4.7 x10^3/uL (4.0-11.0)
[2020-03-25] MEDS: RIVASTIGMINE 4.6MG PATCH. TD SCH (08:04)
[2020-03-25] MEDS: FOLIC ACID 1 MG TABLET PO SCH (08:05)
[2020-03-25] MEDS: SERTRALINE 25 MG TABLET. PO SCH (08:05)
[2020-03-25] MEDS: LACTOBACILLUS RHAMNOSUS GG 1 CAPSULE. PO SCH ×2 (08:05→19:55)
[2020-03-25] MEDS: MULTIVITAMIN with MINERAL TABLET. PO SCH (08:05)
[2020-03-25] MEDS: POLYETHYLENE GLYCOL 3350 17 GM PACKET. PO SCH (08:06)
[2020-03-25] MEDS: CYANOCOBALAMIN (VITAMIN B-12) 250 MCG TABLET PO SCH (08:06)
[2020-03-25] MEDS: ASPIRIN ENTERIC COATED 81 MG TABLET.DR. PO SCH (08:06)
[2020-03-25 08:28] LABS: ALBUMIN 2.6 g/dL (3.4-5.0); ALBUMIN/GLOBULIN RATIO 0.9 (1.0-1.7); CALCIUM 7.8 mg/dL (8.5-10.1); CREATININE 1.2 mg/dL (0.7-1.3); GFR 57.1; TOTAL BILIRUBIN 0.6 mg/dL (0.2-1.0); TOTAL PROTEIN 5.5 g/dL (6.4-8.2)
[2020-03-25 15:52] VITALS: BP 97/60
[2020-03-25] MEDS: TAMSULOSIN 0.4 MG CAP.ER.24H. PO SCH (19:55)
[2020-03-25] MEDS: CYPROHEPTADINE 4 MG TABLET. PO SCH (19:55)
[2020-03-25] MEDS: ATORVASTATIN CALCIUM 20 MG TABLET PO SCH (19:55)
[2020-03-25] MEDS: TERAZOSIN 5 MG CAPSULE. PO SCH (19:56)
--- NOTE | 2020-03-25 21:52 | PDOC ---
Exam Note: Jay Note: Please also refer to the separate dictated note~for this date of service dictated separately.~Patient seen individually. Discussed the patient with Nursing staff reviewed the chart.~Reviewed interim history and current functioning. Reviewed vital signs,~Labs/ Radiology~and current medications noted below. Continue current treatment with the changes noted in the dictated addendum note Assessment: Vital Signs/I&O: Vital Signs Date Time Temp Pulse Resp B/P (MAP) Pulse Ox O2 Delivery O2 Flow Rate FiO2 03/25/20 19:56 70 97/60 03/25/20 15:52 98.0 17 95 Room Air I & O 03/24/20 03/24/20 03/25/20 15:00 23:00 07:00 Intake Total 480 ml 240 ml Output Total 400 ml 250 ml Balance 480 ml -160 ml -250 ml Labs: Laboratory Tests Test 03/25/20 06:38 White Blood Count 4.7 x10^3/uL (4.0-11.0) Red Blood Count 3.74 x10^6/uL (4.30-5.70) L Hemoglobin 11.6 g/dL (13.0-17.5) L Hematocrit 34.1 % (39.0-53.0) L Mean Corpuscular Volume 91 fL (79-100) Mean Corpuscular Hemoglobin 31 pg (25-35) Mean Corpuscular Hemoglobin Concent 34 g/dL (31-37) Red Cell Distribution Width 14.8 % (11.5-14.5) H Platelet Count 169 x10^3/uL (140-400) Neutrophils (%) (Auto) 57 % (31-73) Lymphocytes (%) (Auto) 27 % (24-48) Monocytes (%) (Auto) 11 % (0-9) H Eosinophils (%) (Auto) 4 % (0-3) H Basophils (%) (Auto) 1 % (0-3) Neutrophils # (Auto) 2.7 x10^3uL (1.8-7.7) Lymphocytes # (Auto) 1.3 x10^3/uL (1.0-4.8) Monocytes # (Auto) 0.5 x10^3/uL (0.0-1.1) Eosinophils # (Auto) 0.2 x10^3/uL (0.0-0.7) Basophils # (Auto) 0.0 x10^3/uL (0.0-0.2) Sodium Level 140 mmol/L (136-145) Potassium Level 4.0 mmol/L (3.5-5.1) Chloride Level 104 mmol/L (98-107) Carbon Dioxide Level 30 mmol/L (21-32) Anion Gap 6 (6-14) Blood Urea Nitrogen 25 mg/dL (8-26) Creatinine 1.2 mg/dL (0.7-1.3) Estimated GFR (Cockcroft-Gault) 57.1 BUN/Creatinine Ratio 21 (6-20) H Glucose Level 87 mg/dL (70-99) Calcium Level 7.8 mg/dL (8.5-10.1) L Total Bilirubin 0.6 mg/dL (0.2-1.0) Aspartate Amino Transferase (AST) 21 U/L (15-37) Alanine Aminotransferase (ALT) 26 U/L (16-63) Alkaline Phosphatase 78 U/L (46-116) Total Protein 5.5 g/dL (6.4-8.2) L Albumin 2.6 g/dL (3.4-5.0) L Albumin/Globulin Ratio 0.9 (1.0-1.7) L Current Medications: I have reviewed the current psychotropics carefully including drug interactions. Risk benefit ratio favors no change other than as noted in my dictated progress note. Diagnosis: Problems: (1) Impulse control disorder, unspecified (2) Anxiety disorder, unspecified (3) Dementia, vascular, with depression (4) Dementia, vascular, with delusions (5) Dementia in Alzheimer's disease with depression (6) Dementia in Alzheimer's disease with delusions (7) Major neurocognitive disorder, due to vascular disease, with behavioral disturbance, mild (8) Major depressive disorder with psychotic features (9) Mild cognitive impairment (10) Urinary tract infection ELI BURLESON MD Mar 25, 2020 21:52
[2020-03-26 06:25] VITALS: BP 128/75
--- NOTE | 2020-03-26 07:32 | PDOC ---
Exam Note: Jay Note: This note is a late entry for 03/24/2020 covers elements not covered in my initial note. Subjective: The patient was seen face to face in the evening of 03/24/2020. Nursing report was with Zunilda RUSSO. He slept 8-3/4 hours previous night. Review of Systems: Ambulation impaired, in wheelchair. No CV, GI/, pulmonary, eye system symptoms on review. Mental Status Exam: Oriented to himself and situation. He was quite verbal, interactive animated. Speech has some latency, coherent. Abstraction is fair. Computation is impaired. Language function intact. Short-term memory is impaired. Mood and affect is improved. No paranoia. No clear psychotic symptoms, suicidal or homicidal ideation. Laboratory Data: Reviewed. 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 Rest unchanged. Plan: No change from initial note. The patients Zyprexa has been totally discontinued from his earlier 20 mg a day and he has done well without it. We will maintain psychotropics for now. Assessment: Vital Signs/I&O: Vital Signs Date Time Temp Pulse Resp B/P (MAP) Pulse Ox O2 Delivery O2 Flow Rate FiO2 03/26/20 06:25 98.0 68 16 128/75 (92) 91 03/25/20 15:52 Room Air I & O 03/25/20 03/25/20 03/26/20 15:00 23:00 07:00 Intake Total 480 ml 240 ml Output Total 300 ml 350 ml Balance 480 ml -60 ml -350 ml Current Medications: I have reviewed the current psychotropics carefully including drug interactions. Risk benefit ratio favors no change other than as noted in my dictated progress note. Diagnosis: Problems: (1) Impulse control disorder, unspecified (2) Anxiety disorder, unspecified (3) Dementia, vascular, with depression (4) Dementia, vascular, with delusions (5) Dementia in Alzheimer's disease with depression (6) Dementia in Alzheimer's disease with delusions (7) Major neurocognitive disorder, due to vascular disease, with behavioral disturbance, mild (8) Major depressive disorder with psychotic features (9) Mild cognitive impairment (10) Urinary tract infection ELI BURLESON MD Mar 26, 2020 07:32
--- NOTE | 2020-03-26 07:49 | PDOC ---
Exam Note: Jay Note: This note is a late entry for 03/25/2020 covers elements not covered in my initial note. Subjective: The patient was seen face to face in the evening of 03/25/2020. Nursing report was with Shmuel RUSSO. He slept 8 hours previous night. He is quite verbal, forthcoming, talking about discharge plans as I met with him. Review of Systems: Ambulation impaired, in wheelchair. No CV, GI/, pulmonary, eye system symptoms on review. Mental Status Exam: Oriented to himself and situation. He was quite verbal, interactive animated. Speech has some latency, coherent. Abstraction is fair. Computation is impaired. Language function intact. Short-term memory is impaired. Mood and affect is improved. No paranoia. No clear psychotic symptoms, suicidal or homicidal ideation. Laboratory Data: Reviewed. 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 Rest unchanged. Plan: No change from initial note. Assessment: Vital Signs/I&O: Vital Signs Date Time Temp Pulse Resp B/P (MAP) Pulse Ox O2 Delivery O2 Flow Rate FiO2 03/26/20 06:25 98.0 68 16 128/75 (92) 91 03/25/20 15:52 Room Air I & O 03/25/20 03/25/20 03/26/20 15:00 23:00 07:00 Intake Total 480 ml 240 ml Output Total 300 ml 350 ml Balance 480 ml -60 ml -350 ml Current Medications: I have reviewed the current psychotropics carefully including drug interactions. Risk benefit ratio favors no change other than as noted in my dictated progress note. Diagnosis: Problems: (1) Impulse control disorder, unspecified (2) Anxiety disorder, unspecified (3) Dementia, vascular, with depression (4) Dementia, vascular, with delusions (5) Dementia in Alzheimer's disease with depression (6) Dementia in Alzheimer's disease with delusions (7) Major neurocognitive disorder, due to vascular disease, with behavioral disturbance, mild (8) Major depressive disorder with psychotic features (9) Mild cognitive impairment (10) Urinary tract infection ELI BURLESON MD Mar 26, 2020 07:49
[2020-03-26] MEDS: MULTIVITAMIN with MINERAL TABLET. PO SCH (08:23)
[2020-03-26] MEDS: ASPIRIN ENTERIC COATED 81 MG TABLET.DR. PO SCH (08:24)
[2020-03-26] MEDS: SERTRALINE 25 MG TABLET. PO SCH (08:24)
[2020-03-26] MEDS: FOLIC ACID 1 MG TABLET PO SCH (08:24)
[2020-03-26] MEDS: RIVASTIGMINE 9.5MG PATCH. TD SCH (08:24)
[2020-03-26] MEDS: CYANOCOBALAMIN (VITAMIN B-12) 250 MCG TABLET PO SCH (08:24)
[2020-03-26] MEDS: LACTOBACILLUS RHAMNOSUS GG 1 CAPSULE. PO SCH ×2 (08:24→20:32)
[2020-03-26] MEDS: POLYETHYLENE GLYCOL 3350 17 GM PACKET. PO SCH (08:24)
[2020-03-26 15:56] VITALS: BP 120/71
[2020-03-26] MEDS: TERAZOSIN 5 MG CAPSULE. PO SCH (20:32)
[2020-03-26] MEDS: CYPROHEPTADINE 4 MG TABLET. PO SCH (20:32)
[2020-03-26] MEDS: TAMSULOSIN 0.4 MG CAP.ER.24H. PO SCH (20:33)
[2020-03-26] MEDS: ATORVASTATIN CALCIUM 20 MG TABLET PO SCH (20:33)
[2020-03-27 06:03] VITALS: BP 106/67
--- NOTE | 2020-03-27 06:41 | PDOC ---
Exam Note: Jay Note: This note is a late entry for 03/26/2020 covers elements not covered in my initial note. Subjective: The patient was seen face to face in the evening of 03/26/2020. Nursing report was with Shmuel RUSSO. He slept 6-3/4 hours previous night. He has been more social, pleasant, quite interactive, verbal as I met with him in his room. Review of Systems: Ambulation impaired, in wheelchair. No CV, , pulmonary, eye system symptoms on review. Mental Status Exam: Reasonably oriented. Speech coherent. Abstraction is fair. Computation is impaired. Language function intact. Mood and affect is brighter. Laboratory Data: Reviewed. 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 Rest unchanged. Plan: No change from initial note. Assessment: Vital Signs/I&O: Vital Signs Date Time Temp Pulse Resp B/P (MAP) Pulse Ox O2 Delivery O2 Flow Rate FiO2 03/27/20 06:03 98.5 85 16 106/67 (80) 92 03/26/20 15:56 Room Air I & O 03/26/20 03/26/20 03/27/20 14:59 22:59 06:59 Intake Total 360 ml 420 ml Output Total 450 ml 300 ml Balance 360 ml -30 ml -300 ml Current Medications: Meds: Current Medications Medications (Trade) Dose Ordered Sig/Nader Route PRN Reason Start Time Stop Time Status Last Admin Dose Admin Rivastigmine (Exelon) 1 patch DAILY TD 03/26/20 09:00 03/26/20 08:24 I have reviewed the current psychotropics carefully including drug interactions. Risk benefit ratio favors no change other than as noted in my dictated progress note. Diagnosis: Problems: (1) Impulse control disorder, unspecified (2) Anxiety disorder, unspecified (3) Dementia, vascular, with depression (4) Dementia, vascular, with delusions (5) Dementia in Alzheimer's disease with depression (6) Dementia in Alzheimer's disease with delusions (7) Major neurocognitive disorder, due to vascular disease, with behavioral disturbance, mild (8) Major depressive disorder with psychotic features (9) Mild cognitive impairment (10) Urinary tract infection ELI BURLESON MD Mar 27, 2020 06:41
[2020-03-27 07:57] LABS: ALBUMIN 2.8 g/dL (3.4-5.0); ALBUMIN/GLOBULIN RATIO 0.9 (1.0-1.7); CREATININE 1.3 mg/dL (0.7-1.3); GFR 52.1; POTASSIUM 4.1 mmol/L (3.5-5.1); TOTAL BILIRUBIN 0.6 mg/dL (0.2-1.0); TOTAL PROTEIN 5.8 g/dL (6.4-8.2)
[2020-03-27 08:14] LABS: BASO % 0 % (0-3); EOS # 0.1 x10^3/uL (0.0-0.7); EOS % 1 % (0-3); HEMATOCRIT 34.2 % (39.0-53.0); HEMOGLOBIN 11.6 g/dL (13.0-17.5); LYMPH # 1.3 x10^3/uL (1.0-4.8); LYMPH % 16 % (24-48); MEAN CORPUSCULAR HEMOGLOBIN 31 pg (25-35); MEAN CORPUSCULAR HGB CONC 34 g/dL (31-37); MEAN CORPUSCULAR VOLUME 92 fL (79-100); MONO # 0.6 x10^3/uL (0.0-1.1); MONO % 7 % (0-9); NEUT # 6.3 x10^3uL (1.8-7.7); NEUT % 76 % (31-73); PLATELET COUNT 151 x10^3/uL (140-400); RED BLOOD COUNT 3.74 x10^6/uL (4.30-5.70); RED CELL DISTRIBUTION WIDTH 14.9 % (11.5-14.5); WHITE BLOOD COUNT 8.4 x10^3/uL (4.0-11.0)
[2020-03-27] MEDS: CYANOCOBALAMIN (VITAMIN B-12) 250 MCG TABLET PO SCH (08:26)
[2020-03-27] MEDS: ASPIRIN ENTERIC COATED 81 MG TABLET.DR. PO SCH (08:26)
[2020-03-27] MEDS: POLYETHYLENE GLYCOL 3350 17 GM PACKET. PO SCH (08:26)
[2020-03-27] MEDS: SERTRALINE 25 MG TABLET. PO SCH (08:26)
[2020-03-27] MEDS: LACTOBACILLUS RHAMNOSUS GG 1 CAPSULE. PO SCH ×2 (08:26→20:15)
[2020-03-27] MEDS: MULTIVITAMIN with MINERAL TABLET. PO SCH (08:26)
[2020-03-27] MEDS: FOLIC ACID 1 MG TABLET PO SCH (08:27)
[2020-03-27] MEDS: RIVASTIGMINE 9.5MG PATCH. TD SCH (08:27)
[2020-03-27] MEDS: ACETAMINOPHEN 325 MG TABLET PO PRN (09:54)
[2020-03-27 16:00] VITALS: BP 110/67
--- NOTE | 2020-03-27 16:49 | TX PLAN ---
Interdisciplinary Tx Plan Admission Information February 24, 2020 at 15:05 Legal Status (on Admission): Voluntary DPOA/Guardian Name: Tracy Godinez Contact Other Contact Name: Koffi Barragan Other Contact Verified Code Status: Full Code Allergies: Coded Allergies: caffeine (Verified Allergy, Unknown, 02/24/20) ranitidine (Verified Allergy, Unknown, 02/24/20) Diagnoses Primary Diagnosis: Major Neurocognitive D/O, Alzheimer's, Vascular with delusions/depressions Reasons for Admission: Aggressive, Combative, Confusion/Disoriented, Poor impulse control Problem in Patient's Words: Pt has been falling more and this last fall he actually broke something and has not been able to come back from it. Additional Admission Comments: According to the intake, pt is agitated, pulled out his catheter, lunged from the chair and grabbed staff, twisted staff arm, pinched nurse in the leg, hitting staff, and has insomnia Problems Active Problems: Drowsy Agitation Confusion Inactive Problems: Medication compliant Pt Strengths/Limitations Ability for [place]: Poor Cognitive Functioning/Ability: Poor Communication Skills/Ability: Fair Financial Resources: Fair Insight/Judgement: Poor Intellectual Ability: Fair Physical Health: Poor Social Skills: Poor Stability in Family: Fair Stability in School/Work: Poor Verbal Skills: Fair Discharge Criteria Discharge Criteria: Able meet basic life need, Adequate arrangements @DC, Verbal commit aftercare, Improved behavior, Improved mood/thought Preliminary Discharge Plan Preliminary DC Plan: [facility], Current Living Arrange. Special Precautions Fall Risk: Moderate Initial D/C Plan Pt will need to be re-evaluated for admission back to [facility]. Identified Discharge Needs: Needs to follow up with neurology Potential to have referrals sent to other placement Currently Utilized Resources Currently Utilized Resources/P: Primary Care Physician Referrals Community Resources: Neurology Identified Problems/Hx/Goals Objectives/Short-Term Goals Short Term Goals: Dec. Aggression, Dec. Outbursts, Medication Stabilization, Promote Coping Skill Short Term Goals in Patient's: I want to get back home. Interventions/Frequency Staff Interventions/Frequency&: Psychiatrist to assess pt 3x per week. Social Work to assess pt 2x per week. Nursing to assess and complete 15 minute checks daily. Encourage group participation in activities/1:1 time based on assessment/goals set by Activity Dept. 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 He then joined the [employer] and retired from the from there. He worked for [employer] doing mechanical work. 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 Pt is calm and cooperative with staff direction. Pt is compliant with all cares and medications. Pt does continue to be withdrawn from peers but has not shown any aggression (physical or verbal) since admission. Pt family would like to have family look at SNF/rehabilitation at this time and look forward to having pt returned back home if possible to care for pt there. SW will continue to look for placement for pt and keep pt dtr up to date. CRISELDA VALVERDE Mar 27, 2020 16:49
[2020-03-27] MEDS: TAMSULOSIN 0.4 MG CAP.ER.24H. PO SCH (20:15)
[2020-03-27] MEDS: TERAZOSIN 5 MG CAPSULE. PO SCH (20:15)
[2020-03-27] MEDS: ATORVASTATIN CALCIUM 20 MG TABLET PO SCH (20:16)
[2020-03-27] MEDS: CYPROHEPTADINE 4 MG TABLET. PO SCH (20:16)
--- NOTE | 2020-03-27 22:03 | PDOC ---
Exam Note: Jay Note: Please also refer to the separate dictated note~for this date of service dictated separately.~Patient seen individually. Discussed the patient with Nursing staff reviewed the chart.~Reviewed interim history and current functioning. Reviewed vital signs,~Labs/ Radiology~and current medications noted below. Continue current treatment with the changes noted in the dictated addendum note Assessment: Vital Signs/I&O: Vital Signs Date Time Temp Pulse Resp B/P (MAP) Pulse Ox O2 Delivery O2 Flow Rate FiO2 03/27/20 20:15 69 110/67 03/27/20 16:00 98.1 16 97 03/26/20 15:56 Room Air I & O 03/26/20 03/26/20 03/27/20 15:00 23:00 07:00 Intake Total 360 ml 420 ml Output Total 450 ml 300 ml Balance 360 ml -30 ml -300 ml Labs: Laboratory Tests Test 03/27/20 06:45 White Blood Count 8.4 x10^3/uL (4.0-11.0) Red Blood Count 3.74 x10^6/uL (4.30-5.70) L Hemoglobin 11.6 g/dL (13.0-17.5) L Hematocrit 34.2 % (39.0-53.0) L Mean Corpuscular Volume 92 fL (79-100) Mean Corpuscular Hemoglobin 31 pg (25-35) Mean Corpuscular Hemoglobin Concent 34 g/dL (31-37) Red Cell Distribution Width 14.9 % (11.5-14.5) H Platelet Count 151 x10^3/uL (140-400) Neutrophils (%) (Auto) 76 % (31-73) H Lymphocytes (%) (Auto) 16 % (24-48) L Monocytes (%) (Auto) 7 % (0-9) Eosinophils (%) (Auto) 1 % (0-3) Basophils (%) (Auto) 0 % (0-3) Neutrophils # (Auto) 6.3 x10^3uL (1.8-7.7) Lymphocytes # (Auto) 1.3 x10^3/uL (1.0-4.8) Monocytes # (Auto) 0.6 x10^3/uL (0.0-1.1) Eosinophils # (Auto) 0.1 x10^3/uL (0.0-0.7) Basophils # (Auto) 0.0 x10^3/uL (0.0-0.2) Sodium Level 139 mmol/L (136-145) Potassium Level 4.1 mmol/L (3.5-5.1) Chloride Level 105 mmol/L (98-107) Carbon Dioxide Level 26 mmol/L (21-32) Anion Gap 8 (6-14) Blood Urea Nitrogen 25 mg/dL (8-26) Creatinine 1.3 mg/dL (0.7-1.3) Estimated GFR (Cockcroft-Gault) 52.1 BUN/Creatinine Ratio 19 (6-20) Glucose Level 115 mg/dL (70-99) H Calcium Level 8.0 mg/dL (8.5-10.1) L Total Bilirubin 0.6 mg/dL (0.2-1.0) Aspartate Amino Transferase (AST) 25 U/L (15-37) Alanine Aminotransferase (ALT) 34 U/L (16-63) Alkaline Phosphatase 86 U/L (46-116) Total Protein 5.8 g/dL (6.4-8.2) L Albumin 2.8 g/dL (3.4-5.0) L Albumin/Globulin Ratio 0.9 (1.0-1.7) L Current Medications: I have reviewed the current psychotropics carefully including drug interactions. Risk benefit ratio favors no change other than as noted in my dictated progress note. 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
[2020-03-28 05:25] VITALS: BP 141/88
[2020-03-28 05:26] VITALS: BP 102/58
[2020-03-28] MEDS: RIVASTIGMINE 9.5MG PATCH. TD SCH (08:23)
[2020-03-28] MEDS: POLYETHYLENE GLYCOL 3350 17 GM PACKET. PO SCH (08:23)
[2020-03-28] MEDS: LACTOBACILLUS RHAMNOSUS GG 1 CAPSULE. PO SCH ×2 (08:24→19:40)
[2020-03-28] MEDS: SERTRALINE 25 MG TABLET. PO SCH (08:24)
[2020-03-28] MEDS: CYANOCOBALAMIN (VITAMIN B-12) 250 MCG TABLET PO SCH (08:24)
[2020-03-28] MEDS: MULTIVITAMIN with MINERAL TABLET. PO SCH (08:24)
[2020-03-28] MEDS: ASPIRIN ENTERIC COATED 81 MG TABLET.DR. PO SCH (08:24)
[2020-03-28] MEDS: CHOLECALCIFEROL (VITAMIN D3) 50,000 UNIT CAPSULE PO SCH (08:24)
[2020-03-28] MEDS: FOLIC ACID 1 MG TABLET PO SCH (08:24)
[2020-03-28 15:56] VITALS: BP 124/75
[2020-03-28] MEDS: TERAZOSIN 5 MG CAPSULE. PO SCH (19:39)
[2020-03-28] MEDS: ATORVASTATIN CALCIUM 20 MG TABLET PO SCH (19:39)
[2020-03-28] MEDS: CYPROHEPTADINE 4 MG TABLET. PO SCH (19:40)
[2020-03-28] MEDS: TAMSULOSIN 0.4 MG CAP.ER.24H. PO SCH (19:40)
--- NOTE | 2020-03-28 21:44 | PDOC ---
Exam Note: Jay Note: Please also refer to the separate dictated note~for this date of service dictated separately.~Patient seen individually. Discussed the patient with Nursing staff reviewed the chart.~Reviewed interim history and current functioning. Reviewed vital signs,~Labs/ Radiology~and current medications noted below. Continue current treatment with the changes noted in the dictated addendum note Assessment: Vital Signs/I&O: Vital Signs Date Time Temp Pulse Resp B/P (MAP) Pulse Ox O2 Delivery O2 Flow Rate FiO2 03/28/20 19:39 70 124/75 03/28/20 15:56 97.4 16 95 03/26/20 15:56 Room Air I & O 03/27/20 03/27/20 03/28/20 15:00 23:00 07:00 Intake Total 960 ml 300 ml Output Total 500 ml Balance 960 ml -200 ml Current Medications: I have reviewed the current psychotropics carefully including drug interactions. Risk benefit ratio favors no change other than as noted in my dictated progress note. 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
[2020-03-29 05:58] VITALS: BP 115/73
--- NOTE | 2020-03-29 07:24 | PDOC ---
Exam Note: Jay Note: This note is a late entry for 03/27/2020 covers elements not covered in my initial note. Subjective: The patient was seen face to face in the morning of 03/27/2020 for treatment team meeting with Elayne De Santiago, and Carol (social service staff). Nursing report was with Zunilda RUSSO. Appetite 75% of his meals. Average sleep 8-1/2 hours though he slept 10 previous night. He did eat his breakfast which is an improvement. Per Jonnathan, social service staff, he has not been accepted at various half-way facilities and the plan is going to be for him to go home with home health services. I met with him in his room in the evening. Review of Systems: Ambulation impaired, in wheelchair. No CV, , pulmonary, eye system symptoms on review. Mental Status Exam: Reasonably oriented. Speech coherent. Abstraction is fair. Computation is impaired. Language function intact. Mood and affect is brighter. Laboratory Data: Reviewed. 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 Rest unchanged. Plan: No change from initial note. Assessment: Vital Signs/I&O: Vital Signs Date Time Temp Pulse Resp B/P (MAP) Pulse Ox O2 Delivery O2 Flow Rate FiO2 03/29/20 05:58 97.4 66 20 115/73 (87) 94 03/26/20 15:56 Room Air I & O 03/28/20 03/28/20 03/29/20 15:00 23:00 07:00 Intake Total 480 ml 120 ml Output Total 550 ml 850 ml Balance 480 ml -430 ml -850 ml Current Medications: I have reviewed the current psychotropics carefully including drug interactions. Risk benefit ratio favors no change other than as noted in my dictated progress note. 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
--- NOTE | 2020-03-29 07:26 | PDOC ---
Exam Note: Jay Note: This note is a late entry for 03/28/2020 covers elements not covered in my initial note. Subjective: The patient was seen face to face in the evening of 03/28/2020. Nursing report was with Zunilda RUSSO. He slept 9-1/4 hours previous night. I met with him in his room. He was lying in bed, very interactive, very appreciative of my visit asking me how things were outside, quite interactive. Review of Systems: Ambulation impaired, in wheelchair. No CV, , pulmonary, eye system symptoms on review. Mental Status Exam: Reasonably oriented. Speech coherent. Abstraction is fair. Computation is impaired. Language function intact. Mood and affect improved. Laboratory Data: Reviewed. 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 Rest unchanged. Plan: No change from initial note. Assessment: Vital Signs/I&O: Vital Signs Date Time Temp Pulse Resp B/P (MAP) Pulse Ox O2 Delivery O2 Flow Rate FiO2 03/29/20 05:58 97.4 66 20 115/73 (87) 94 03/26/20 15:56 Room Air I & O 03/28/20 03/28/20 03/29/20 15:00 23:00 07:00 Intake Total 480 ml 120 ml Output Total 550 ml 850 ml Balance 480 ml -430 ml -850 ml Current Medications: I have reviewed the current psychotropics carefully including drug interactions. Risk benefit ratio favors no change other than as noted in my dictated progress note. 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
[2020-03-29] MEDS: SERTRALINE 25 MG TABLET. PO SCH (07:55)
[2020-03-29] MEDS: POLYETHYLENE GLYCOL 3350 17 GM PACKET. PO SCH (07:55)
[2020-03-29] MEDS: LACTOBACILLUS RHAMNOSUS GG 1 CAPSULE. PO SCH ×2 (07:55→19:59)
[2020-03-29] MEDS: MULTIVITAMIN with MINERAL TABLET. PO SCH (07:55)
[2020-03-29] MEDS: CYANOCOBALAMIN (VITAMIN B-12) 250 MCG TABLET PO SCH (07:55)
[2020-03-29] MEDS: FOLIC ACID 1 MG TABLET PO SCH (07:55)
[2020-03-29] MEDS: ASPIRIN ENTERIC COATED 81 MG TABLET.DR. PO SCH (07:55)
[2020-03-29] MEDS: RIVASTIGMINE 9.5MG PATCH. TD SCH (07:56)
[2020-03-29 10:42] LABS: BASO % 1 % (0-3); EOS # 0.1 x10^3/uL (0.0-0.7); EOS % 2 % (0-3); HEMATOCRIT 37.3 % (39.0-53.0); HEMOGLOBIN 12.6 g/dL (13.0-17.5); LYMPH % 16 % (24-48); MEAN CORPUSCULAR HEMOGLOBIN 31 pg (25-35); MEAN CORPUSCULAR HGB CONC 34 g/dL (31-37); MEAN CORPUSCULAR VOLUME 92 fL (79-100); MONO # 0.5 x10^3/uL (0.0-1.1); MONO % 9 % (0-9); NEUT # 4.6 x10^3uL (1.8-7.7); NEUT % 73 % (31-73); PLATELET COUNT 156 x10^3/uL (140-400); RED BLOOD COUNT 4.07 x10^6/uL (4.30-5.70); RED CELL DISTRIBUTION WIDTH 15.2 % (11.5-14.5); WHITE BLOOD COUNT 6.3 x10^3/uL (4.0-11.0)
[2020-03-29 10:58] LABS: ALBUMIN 3.1 g/dL (3.4-5.0); ALBUMIN/GLOBULIN RATIO 0.9 (1.0-1.7); CALCIUM 8.8 mg/dL (8.5-10.1); CREATININE 1.4 mg/dL (0.7-1.3); GFR 47.8; POTASSIUM 4.3 mmol/L (3.5-5.1); TOTAL BILIRUBIN 0.9 mg/dL (0.2-1.0); TOTAL PROTEIN 6.7 g/dL (6.4-8.2)
[2020-03-29 15:46] VITALS: BP 111/68
[2020-03-29] MEDS: TAMSULOSIN 0.4 MG CAP.ER.24H. PO SCH (19:59)
[2020-03-29] MEDS: ATORVASTATIN CALCIUM 20 MG TABLET PO SCH (19:59)
[2020-03-29] MEDS: CYPROHEPTADINE 4 MG TABLET. PO SCH (20:00)
[2020-03-29] MEDS: TERAZOSIN 5 MG CAPSULE. PO SCH (20:00)
--- NOTE | 2020-03-29 22:06 | PDOC ---
Exam Note: Jay Note: Please also refer to the separate dictated note~for this date of service dictated separately.~Patient seen individually. Discussed the patient with Nursing staff reviewed the chart.~Reviewed interim history and current functioning. Reviewed vital signs,~Labs/ Radiology~and current medications noted below. Continue current treatment with the changes noted in the dictated addendum note Assessment: Vital Signs/I&O: Vital Signs Date Time Temp Pulse Resp B/P (MAP) Pulse Ox O2 Delivery O2 Flow Rate FiO2 03/29/20 20:00 80 111/68 03/29/20 15:46 98.0 16 92 03/26/20 15:56 Room Air I & O 03/28/20 03/28/20 03/29/20 15:00 23:00 07:00 Intake Total 480 ml 120 ml Output Total 550 ml 850 ml Balance 480 ml -430 ml -850 ml Labs: Laboratory Tests Test 03/29/20 10:28 White Blood Count 6.3 x10^3/uL (4.0-11.0) Red Blood Count 4.07 x10^6/uL (4.30-5.70) L Hemoglobin 12.6 g/dL (13.0-17.5) L Hematocrit 37.3 % (39.0-53.0) L Mean Corpuscular Volume 92 fL (79-100) Mean Corpuscular Hemoglobin 31 pg (25-35) Mean Corpuscular Hemoglobin Concent 34 g/dL (31-37) Red Cell Distribution Width 15.2 % (11.5-14.5) H Platelet Count 156 x10^3/uL (140-400) Neutrophils (%) (Auto) 73 % (31-73) Lymphocytes (%) (Auto) 16 % (24-48) L Monocytes (%) (Auto) 9 % (0-9) Eosinophils (%) (Auto) 2 % (0-3) Basophils (%) (Auto) 1 % (0-3) Neutrophils # (Auto) 4.6 x10^3uL (1.8-7.7) Lymphocytes # (Auto) 1.0 x10^3/uL (1.0-4.8) Monocytes # (Auto) 0.5 x10^3/uL (0.0-1.1) Eosinophils # (Auto) 0.1 x10^3/uL (0.0-0.7) Basophils # (Auto) 0.0 x10^3/uL (0.0-0.2) Sodium Level 139 mmol/L (136-145) Potassium Level 4.3 mmol/L (3.5-5.1) Chloride Level 103 mmol/L (98-107) Carbon Dioxide Level 30 mmol/L (21-32) Anion Gap 6 (6-14) Blood Urea Nitrogen 25 mg/dL (8-26) Creatinine 1.4 mg/dL (0.7-1.3) H Estimated GFR (Cockcroft-Gault) 47.8 BUN/Creatinine Ratio 18 (6-20) Glucose Level 141 mg/dL (70-99) H Calcium Level 8.8 mg/dL (8.5-10.1) Total Bilirubin 0.9 mg/dL (0.2-1.0) Aspartate Amino Transferase (AST) 28 U/L (15-37) Alanine Aminotransferase (ALT) 46 U/L (16-63) Alkaline Phosphatase 95 U/L (46-116) Total Protein 6.7 g/dL (6.4-8.2) Albumin 3.1 g/dL (3.4-5.0) L Albumin/Globulin Ratio 0.9 (1.0-1.7) L Current Medications: I have reviewed the current psychotropics carefully including drug interactions. Risk benefit ratio favors no change other than as noted in my dictated progress note. 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
[2020-03-30 05:19] VITALS: BP 94/57
--- NOTE | 2020-03-30 07:04 | PN ---
DATE: 03/29/2020 PSYCHIATRIC PROGRESS NOTE This late entry 03/29 covers elements not covered in my initial note. SUBJECTIVE: I met with the patient evening of 03/29. Per RAFAELA Anguiano, the patient slept 9-3/4 hours previous night. He came out to the dayroom, was interactive. He has not been agitated. Appetite is better. REVIEW OF SYSTEMS: Ambulation impaired, in wheelchair, met with him in his room at length. No CV, , pulmonary, eye system symptoms on review. MENTAL STATUS EXAM: Oriented to himself and situation. Speech has some latency, coherent. Abstraction fair, computation impaired, language function intact, attention span fair. Mood and affect is improved. LABORATORY DATA: Reviewed. IMPRESSION: Unchanged from initial note. PLAN: No change from initial note. His UTI seems to have resolved. Antibiotics completed. Social service staff is actively looking for placement and he can be transitioned there as soon as appropriate placement secured. ELI BURLESON MD DR: DANIEL/glenn JOB#: [id number] / [id number]
[2020-03-30] MEDS: POLYETHYLENE GLYCOL 3350 17 GM PACKET. PO SCH (08:06)
[2020-03-30] MEDS: FOLIC ACID 1 MG TABLET PO SCH (08:06)
[2020-03-30] MEDS: MULTIVITAMIN with MINERAL TABLET. PO SCH (08:07)
[2020-03-30] MEDS: SERTRALINE 25 MG TABLET. PO SCH (08:07)
[2020-03-30] MEDS: RIVASTIGMINE 9.5MG PATCH. TD SCH (08:07)
[2020-03-30] MEDS: ASPIRIN ENTERIC COATED 81 MG TABLET.DR. PO SCH (08:07)
[2020-03-30] MEDS: LACTOBACILLUS RHAMNOSUS GG 1 CAPSULE. PO SCH ×2 (08:08→20:06)
[2020-03-30] MEDS: CYANOCOBALAMIN (VITAMIN B-12) 250 MCG TABLET PO SCH (08:08)
[2020-03-30 15:28] VITALS: BP 105/62
[2020-03-30] MEDS: ATORVASTATIN CALCIUM 20 MG TABLET PO SCH (20:06)
[2020-03-30] MEDS: CYPROHEPTADINE 4 MG TABLET. PO SCH (20:07)
[2020-03-30] MEDS: TERAZOSIN 5 MG CAPSULE. PO SCH (20:07)
[2020-03-30] MEDS: TAMSULOSIN 0.4 MG CAP.ER.24H. PO SCH (20:07)
--- NOTE | 2020-03-30 22:19 | PDOC ---
Exam Note: Jay Note: Please also refer to the separate dictated note~for this date of service dictated separately.~Patient seen individually. Discussed the patient with Nursing staff reviewed the chart.~Reviewed interim history and current functioning. Reviewed vital signs,~Labs/ Radiology~and current medications noted below. Continue current treatment with the changes noted in the dictated addendum note Assessment: Vital Signs/I&O: Vital Signs Date Time Temp Pulse Resp B/P (MAP) Pulse Ox O2 Delivery O2 Flow Rate FiO2 03/30/20 20:07 64 105/62 03/30/20 15:28 98.8 16 95 03/30/20 05:19 Room Air I & O 03/29/20 03/29/20 03/30/20 15:00 23:00 07:00 Intake Total 720 ml 240 ml Output Total 750 ml Balance 720 ml 240 ml -750 ml Current Medications: I have reviewed the current psychotropics carefully including drug interactions. Risk benefit ratio favors no change other than as noted in my dictated progress note. 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
[2020-03-31 05:49] VITALS: BP 109/69
[2020-03-31 06:35] LABS: BASO % 1 % (0-3); EOS # 0.3 x10^3/uL (0.0-0.7); EOS % 5 % (0-3); HEMATOCRIT 32.7 % (39.0-53.0); HEMOGLOBIN 10.9 g/dL (13.0-17.5); LYMPH % 40 % (24-48); MEAN CORPUSCULAR HEMOGLOBIN 30 pg (25-35); MEAN CORPUSCULAR HGB CONC 33 g/dL (31-37); MEAN CORPUSCULAR VOLUME 91 fL (79-100); MONO # 0.6 x10^3/uL (0.0-1.1); MONO % 12 % (0-9); NEUT # 2.1 x10^3uL (1.8-7.7); NEUT % 43 % (31-73); PLATELET COUNT 164 x10^3/uL (140-400); RED BLOOD COUNT 3.58 x10^6/uL (4.30-5.70); RED CELL DISTRIBUTION WIDTH 14.9 % (11.5-14.5)
[2020-03-31 06:49] LABS: ALBUMIN 2.6 g/dL (3.4-5.0); ALBUMIN/GLOBULIN RATIO 0.9 (1.0-1.7); CALCIUM 8.2 mg/dL (8.5-10.1); CREATININE 1.3 mg/dL (0.7-1.3); GFR 52.1; TOTAL BILIRUBIN 0.6 mg/dL (0.2-1.0); TOTAL PROTEIN 5.6 g/dL (6.4-8.2)
[2020-03-31] MEDS: POLYETHYLENE GLYCOL 3350 17 GM PACKET. PO SCH (08:14)
[2020-03-31] MEDS: LACTOBACILLUS RHAMNOSUS GG 1 CAPSULE. PO SCH ×2 (08:14→19:53)
[2020-03-31] MEDS: FOLIC ACID 1 MG TABLET PO SCH (08:14)
[2020-03-31] MEDS: MULTIVITAMIN with MINERAL TABLET. PO SCH (08:14)
[2020-03-31] MEDS: ASPIRIN ENTERIC COATED 81 MG TABLET.DR. PO SCH (08:15)
[2020-03-31] MEDS: SERTRALINE 25 MG TABLET. PO SCH (08:15)
[2020-03-31] MEDS: CYANOCOBALAMIN (VITAMIN B-12) 250 MCG TABLET PO SCH (08:15)
[2020-03-31] MEDS: RIVASTIGMINE 9.5MG PATCH. TD SCH (08:45)
[2020-03-31 15:36] VITALS: BP 98/55
[2020-03-31 19:09] VITALS: BP 121/70
[2020-03-31] MEDS: ATORVASTATIN CALCIUM 20 MG TABLET PO SCH (19:52)
[2020-03-31] MEDS: ACETAMINOPHEN 325 MG TABLET PO PRN (19:52)
[2020-03-31] MEDS: CYPROHEPTADINE 4 MG TABLET. PO SCH (19:53)
[2020-03-31] MEDS: TERAZOSIN 5 MG CAPSULE. PO SCH (19:53)
[2020-03-31] MEDS: TAMSULOSIN 0.4 MG CAP.ER.24H. PO SCH (19:53)
--- NOTE | 2020-03-31 22:16 | PDOC ---
Exam Note: Jay Note: Please also refer to the separate dictated note~for this date of service dictated separately.~Patient seen individually. Discussed the patient with Nursing staff reviewed the chart.~Reviewed interim history and current functioning. Reviewed vital signs,~Labs/ Radiology~and current medications noted below. Continue current treatment with the changes noted in the dictated addendum note Assessment: Vital Signs/I&O: Vital Signs Date Time Temp Pulse Resp B/P (MAP) Pulse Ox O2 Delivery O2 Flow Rate FiO2 03/31/20 19:53 74 121/70 03/31/20 15:36 97.6 16 97 03/30/20 05:19 Room Air I & O 03/30/20 03/30/20 03/31/20 15:00 23:00 07:00 Intake Total 960 ml 480 ml Output Total 600 ml Balance 960 ml 480 ml -600 ml Labs: Laboratory Tests Test 03/31/20 05:58 White Blood Count 5.0 x10^3/uL (4.0-11.0) Red Blood Count 3.58 x10^6/uL (4.30-5.70) L Hemoglobin 10.9 g/dL (13.0-17.5) L Hematocrit 32.7 % (39.0-53.0) L Mean Corpuscular Volume 91 fL (79-100) Mean Corpuscular Hemoglobin 30 pg (25-35) Mean Corpuscular Hemoglobin Concent 33 g/dL (31-37) Red Cell Distribution Width 14.9 % (11.5-14.5) H Platelet Count 164 x10^3/uL (140-400) Neutrophils (%) (Auto) 43 % (31-73) Lymphocytes (%) (Auto) 40 % (24-48) Monocytes (%) (Auto) 12 % (0-9) H Eosinophils (%) (Auto) 5 % (0-3) H Basophils (%) (Auto) 1 % (0-3) Neutrophils # (Auto) 2.1 x10^3uL (1.8-7.7) Lymphocytes # (Auto) 2.0 x10^3/uL (1.0-4.8) Monocytes # (Auto) 0.6 x10^3/uL (0.0-1.1) Eosinophils # (Auto) 0.3 x10^3/uL (0.0-0.7) Basophils # (Auto) 0.0 x10^3/uL (0.0-0.2) Sodium Level 143 mmol/L (136-145) Potassium Level 4.0 mmol/L (3.5-5.1) Chloride Level 106 mmol/L (98-107) Carbon Dioxide Level 30 mmol/L (21-32) Anion Gap 7 (6-14) Blood Urea Nitrogen 31 mg/dL (8-26) H Creatinine 1.3 mg/dL (0.7-1.3) Estimated GFR (Cockcroft-Gault) 52.1 BUN/Creatinine Ratio 24 (6-20) H Glucose Level 92 mg/dL (70-99) Calcium Level 8.2 mg/dL (8.5-10.1) L Total Bilirubin 0.6 mg/dL (0.2-1.0) Aspartate Amino Transferase (AST) 27 U/L (15-37) Alanine Aminotransferase (ALT) 43 U/L (16-63) Alkaline Phosphatase 78 U/L (46-116) Total Protein 5.6 g/dL (6.4-8.2) L Albumin 2.6 g/dL (3.4-5.0) L Albumin/Globulin Ratio 0.9 (1.0-1.7) L Current Medications: I have reviewed the current psychotropics carefully including drug interactions. Risk benefit ratio favors no change other than as noted in my dictated progress note. 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
--- NOTE | 2020-03-31 22:25 | PN ---
DATE: 03/30/2020 PSYCHIATRIC PROGRESS NOTE This late entry 03/30/2020 covers elements not covered in my initial note. SUBJECTIVE: I met with the patient evening of 03/30/2020. Per RAFAELA Liang, the patient slept 9-1/4 hours previous night. He stays to himself, spends much time in his room and that is where I met with him. REVIEW OF SYSTEMS: Ambulation impaired, in wheelchair. No CV, , pulmonary, eye system symptoms on review. MENTAL STATUS EXAMINATION: Oriented to himself and situation. Speech has some latency, coherent. Abstraction fair, computation impaired. Language function intact. Attention span short. Mood and affect somewhat withdrawn. LABORATORY DATA: Reviewed. IMPRESSION: Unchanged from initial note. PLAN: No change from initial note. MAN Natalia BURLESON MD DR: DANIEL/glenn JOB#: [id number] / [id number]
[2020-04-01 05:58] VITALS: BP 92/53
[2020-04-01] MEDS: ASPIRIN ENTERIC COATED 81 MG TABLET.DR. PO SCH (08:35)
[2020-04-01] MEDS: POLYETHYLENE GLYCOL 3350 17 GM PACKET. PO SCH (08:35)
[2020-04-01] MEDS: LACTOBACILLUS RHAMNOSUS GG 1 CAPSULE. PO SCH ×2 (08:35→20:19)
[2020-04-01] MEDS: SERTRALINE 25 MG TABLET. PO SCH (08:35)
[2020-04-01] MEDS: RIVASTIGMINE 9.5MG PATCH. TD SCH (08:35)
[2020-04-01] MEDS: MULTIVITAMIN with MINERAL TABLET. PO SCH (08:35)
[2020-04-01] MEDS: FOLIC ACID 1 MG TABLET PO SCH (08:35)
[2020-04-01] MEDS: CYANOCOBALAMIN (VITAMIN B-12) 250 MCG TABLET PO SCH (08:35)
[2020-04-01 15:54] VITALS: BP 119/70
[2020-04-01] MEDS: ATORVASTATIN CALCIUM 20 MG TABLET PO SCH (20:18)
[2020-04-01] MEDS: CYPROHEPTADINE 4 MG TABLET. PO SCH (20:18)
[2020-04-01] MEDS: TAMSULOSIN 0.4 MG CAP.ER.24H. PO SCH (20:19)
[2020-04-01] MEDS: TERAZOSIN 5 MG CAPSULE. PO SCH (20:19)
--- NOTE | 2020-04-01 22:08 | PDOC ---
Exam Note: Jya Note: Please also refer to the separate dictated note~for this date of service dictated separately.~Patient seen individually. Discussed the patient with Nursing staff reviewed the chart.~Reviewed interim history and current functioning. Reviewed vital signs,~Labs/ Radiology~and current medications noted below. Continue current treatment with the changes noted in the dictated addendum note Assessment: Vital Signs/I&O: Vital Signs Date Time Temp Pulse Resp B/P (MAP) Pulse Ox O2 Delivery O2 Flow Rate FiO2 04/01/20 20:19 76 119/70 04/01/20 15:54 97.9 18 95 04/01/20 05:58 Room Air I & O 03/31/20 03/31/20 04/01/20 15:00 23:00 07:00 Intake Total 600 ml 710 ml Output Total 700 ml Balance 600 ml 710 ml -700 ml Current Medications: I have reviewed the current psychotropics carefully including drug interactions. Risk benefit ratio favors no change other than as noted in my dictated progress note. 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
[2020-04-02 06:04] VITALS: BP 118/72
[2020-04-02] MEDS: LACTOBACILLUS RHAMNOSUS GG 1 CAPSULE. PO SCH ×2 (08:25→20:50)
[2020-04-02] MEDS: MULTIVITAMIN with MINERAL TABLET. PO SCH (08:25)
[2020-04-02] MEDS: FOLIC ACID 1 MG TABLET PO SCH (08:25)
[2020-04-02] MEDS: SERTRALINE 25 MG TABLET. PO SCH (08:25)
[2020-04-02] MEDS: ASPIRIN ENTERIC COATED 81 MG TABLET.DR. PO SCH (08:25)
[2020-04-02] MEDS: CYANOCOBALAMIN (VITAMIN B-12) 250 MCG TABLET PO SCH (08:25)
[2020-04-02] MEDS: RIVASTIGMINE 9.5MG PATCH. TD SCH (08:26)
[2020-04-02] MEDS: POLYETHYLENE GLYCOL 3350 17 GM PACKET. PO SCH (08:26)
--- NOTE | 2020-04-02 12:39 | PN ---
DATE: 03/31/2020 PSYCHIATRIC PROGRESS NOTE This note covers the elements not covered in my initial note of 03/31/2020. SUBJECTIVE: Per RAFAELA Collado, the patient slept 8-1/2 hours previous night. He did eat breakfast and lunch and then some M and M's. He remains isolative in his room. I met with him in his room at some length in the evening. He states he prefers to stay in his room because he cannot watch the TV channel in the common area since he does not want to change it from what others are watching. He denies being depressed. REVIEW OF SYSTEMS: Ambulation impaired. No CV, , pulmonary, eye system symptoms on review. MENTAL STATUS EXAM: Oriented to himself and situation. Speech has some latency, coherent. Abstraction fair, computation impaired, language function intact, attention span short. Mood and affect somewhat withdrawn, less depressed. No suicidal ideation. LABORATORY DATA: Reviewed. IMPRESSION: Unchanged from initial note. PLAN: No change from initial note. MAN Natalia BURLESON MD DR: DANIEL/glenn JOB#: [id number] / [id number]
--- NOTE | 2020-04-02 12:42 | PN ---
DATE: 04/01/2020 PSYCHIATRIC PROGRESS NOTE This late entry 04/01/2020 covers elements not covered in my initial note. SUBJECTIVE: I met with the patient in the evening of 04/01/2020 at some length in his room. Per RAFAELA Mi, the patient slept 7 hours previous night. He refused lunch. He has been somewhat isolative, but denies being depressed. REVIEW OF SYSTEMS: Ambulation impaired, in wheelchair. No CV, , pulmonary, eye system symptoms on review. MENTAL STATUS EXAM: Reasonably oriented. Speech is coherent, has some latency. Abstraction fair, computation impaired, language function intact. Mood and affect withdrawn. No suicidal or homicidal ideation. LABORATORY DATA: Reviewed. IMPRESSION: Unchanged from initial note. PLAN: No change from initial note. MAN Natalia BURLESON MD DR: DANIEL/glenn JOB#: [id number] / [id number]
[2020-04-02 16:53] VITALS: BP 122/71
[2020-04-02] MEDS: TAMSULOSIN 0.4 MG CAP.ER.24H. PO SCH (20:50)
[2020-04-02] MEDS: CYPROHEPTADINE 4 MG TABLET. PO SCH (20:51)
[2020-04-02] MEDS: TERAZOSIN 5 MG CAPSULE. PO SCH (20:51)
[2020-04-02] MEDS: ATORVASTATIN CALCIUM 20 MG TABLET PO SCH (20:51)
--- NOTE | 2020-04-02 22:13 | PDOC ---
Exam Note: Jay Note: Please also refer to the separate dictated note~for this date of service dictated separately.~Patient seen individually. Discussed the patient with Nursing staff reviewed the chart.~Reviewed interim history and current functioning. Reviewed vital signs,~Labs/ Radiology~and current medications noted below. Continue current treatment with the changes noted in the dictated addendum note Assessment: Vital Signs/I&O: Vital Signs Date Time Temp Pulse Resp B/P (MAP) Pulse Ox O2 Delivery O2 Flow Rate FiO2 04/02/20 20:51 75 122/71 04/02/20 16:53 98.3 16 93 04/02/20 06:04 Room Air I & O 04/01/20 04/01/20 04/02/20 14:59 22:59 06:59 Intake Total 480 ml 120 ml Output Total 500 ml 550 ml Balance 480 ml -380 ml -550 ml Current Medications: I have reviewed the current psychotropics carefully including drug interactions. Risk benefit ratio favors no change other than as noted in my dictated progress note. 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
[2020-04-03 05:56] VITALS: BP 102/64
[2020-04-03 06:43] LABS: BASO % 1 % (0-3); EOS # 0.2 x10^3/uL (0.0-0.7); EOS % 4 % (0-3); HEMATOCRIT 34.5 % (39.0-53.0); HEMOGLOBIN 11.5 g/dL (13.0-17.5); LYMPH # 1.7 x10^3/uL (1.0-4.8); LYMPH % 34 % (24-48); MEAN CORPUSCULAR HEMOGLOBIN 30 pg (25-35); MEAN CORPUSCULAR HGB CONC 34 g/dL (31-37); MEAN CORPUSCULAR VOLUME 91 fL (79-100); MONO # 0.6 x10^3/uL (0.0-1.1); MONO % 11 % (0-9); NEUT # 2.5 x10^3uL (1.8-7.7); NEUT % 49 % (31-73); PLATELET COUNT 178 x10^3/uL (140-400); RED BLOOD COUNT 3.79 x10^6/uL (4.30-5.70); WHITE BLOOD COUNT 5.1 x10^3/uL (4.0-11.0)
[2020-04-03 06:46] LABS: ALBUMIN 2.7 g/dL (3.4-5.0); ALBUMIN/GLOBULIN RATIO 0.9 (1.0-1.7); CALCIUM 8.2 mg/dL (8.5-10.1); CREATININE 1.3 mg/dL (0.7-1.3); GFR 52.1; POTASSIUM 4.3 mmol/L (3.5-5.1); TOTAL BILIRUBIN 0.4 mg/dL (0.2-1.0); TOTAL PROTEIN 5.7 g/dL (6.4-8.2)
[2020-04-03] MEDS: POLYETHYLENE GLYCOL 3350 17 GM PACKET. PO SCH (09:20)
[2020-04-03] MEDS: RIVASTIGMINE 9.5MG PATCH. TD SCH (09:21)
[2020-04-03] MEDS: MULTIVITAMIN with MINERAL TABLET. PO SCH (09:22)
[2020-04-03] MEDS: ASPIRIN ENTERIC COATED 81 MG TABLET.DR. PO SCH (09:22)
[2020-04-03] MEDS: CYANOCOBALAMIN (VITAMIN B-12) 250 MCG TABLET PO SCH (09:22)
[2020-04-03] MEDS: SERTRALINE 25 MG TABLET. PO SCH (09:22)
[2020-04-03] MEDS: LACTOBACILLUS RHAMNOSUS GG 1 CAPSULE. PO SCH ×2 (09:22→20:55)
[2020-04-03] MEDS: FOLIC ACID 1 MG TABLET PO SCH (09:22)
[2020-04-03 16:09] VITALS: BP 111/72
[2020-04-03] MEDS: CYPROHEPTADINE 4 MG TABLET. PO SCH (20:55)
[2020-04-03] MEDS: TAMSULOSIN 0.4 MG CAP.ER.24H. PO SCH (20:55)
[2020-04-03] MEDS: TERAZOSIN 5 MG CAPSULE. PO SCH (20:56)
[2020-04-03] MEDS: ATORVASTATIN CALCIUM 20 MG TABLET PO SCH (20:56)
--- NOTE | 2020-04-03 22:12 | PDOC ---
Exam Note: Jay Note: Please also refer to the separate dictated note~for this date of service dictated separately.~Patient seen individually. Discussed the patient with Nursing staff reviewed the chart.~Reviewed interim history and current functioning. Reviewed vital signs,~Labs/ Radiology~and current medications noted below. Continue current treatment with the changes noted in the dictated addendum note Assessment: Vital Signs/I&O: Vital Signs Date Time Temp Pulse Resp B/P (MAP) Pulse Ox O2 Delivery O2 Flow Rate FiO2 04/03/20 20:56 94 111/72 04/03/20 16:09 97.7 18 93 04/02/20 06:04 Room Air I & O 04/02/20 04/02/20 04/03/20 15:00 23:00 07:00 Intake Total 600 ml 600 ml Output Total 500 ml 375 ml Balance 600 ml 100 ml -375 ml Labs: Laboratory Tests Test 04/03/20 05:56 White Blood Count 5.1 x10^3/uL (4.0-11.0) Red Blood Count 3.79 x10^6/uL (4.30-5.70) L Hemoglobin 11.5 g/dL (13.0-17.5) L Hematocrit 34.5 % (39.0-53.0) L Mean Corpuscular Volume 91 fL (79-100) Mean Corpuscular Hemoglobin 30 pg (25-35) Mean Corpuscular Hemoglobin Concent 34 g/dL (31-37) Red Cell Distribution Width 15.0 % (11.5-14.5) H Platelet Count 178 x10^3/uL (140-400) Neutrophils (%) (Auto) 49 % (31-73) Lymphocytes (%) (Auto) 34 % (24-48) Monocytes (%) (Auto) 11 % (0-9) H Eosinophils (%) (Auto) 4 % (0-3) H Basophils (%) (Auto) 1 % (0-3) Neutrophils # (Auto) 2.5 x10^3uL (1.8-7.7) Lymphocytes # (Auto) 1.7 x10^3/uL (1.0-4.8) Monocytes # (Auto) 0.6 x10^3/uL (0.0-1.1) Eosinophils # (Auto) 0.2 x10^3/uL (0.0-0.7) Basophils # (Auto) 0.0 x10^3/uL (0.0-0.2) Sodium Level 145 mmol/L (136-145) Potassium Level 4.3 mmol/L (3.5-5.1) Chloride Level 109 mmol/L (98-107) H Carbon Dioxide Level 31 mmol/L (21-32) Anion Gap 5 (6-14) L Blood Urea Nitrogen 31 mg/dL (8-26) H Creatinine 1.3 mg/dL (0.7-1.3) Estimated GFR (Cockcroft-Gault) 52.1 BUN/Creatinine Ratio 24 (6-20) H Glucose Level 93 mg/dL (70-99) Calcium Level 8.2 mg/dL (8.5-10.1) L Total Bilirubin 0.4 mg/dL (0.2-1.0) Aspartate Amino Transferase (AST) 28 U/L (15-37) Alanine Aminotransferase (ALT) 51 U/L (16-63) Alkaline Phosphatase 87 U/L (46-116) Total Protein 5.7 g/dL (6.4-8.2) L Albumin 2.7 g/dL (3.4-5.0) L Albumin/Globulin Ratio 0.9 (1.0-1.7) L Current Medications: I have reviewed the current psychotropics carefully including drug interactions. Risk benefit ratio favors no change other than as noted in my dictated progress note. 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
[2020-04-04 06:30] VITALS: BP 106/67
[2020-04-04] MEDS: POLYETHYLENE GLYCOL 3350 17 GM PACKET. PO SCH (08:23)
[2020-04-04] MEDS: ASPIRIN ENTERIC COATED 81 MG TABLET.DR. PO SCH (08:24)
[2020-04-04] MEDS: FOLIC ACID 1 MG TABLET PO SCH (08:24)
[2020-04-04] MEDS: MULTIVITAMIN with MINERAL TABLET. PO SCH (08:24)
[2020-04-04] MEDS: SERTRALINE 25 MG TABLET. PO SCH (08:24)
[2020-04-04] MEDS: CYANOCOBALAMIN (VITAMIN B-12) 250 MCG TABLET PO SCH (08:24)
[2020-04-04] MEDS: CHOLECALCIFEROL (VITAMIN D3) 50,000 UNIT CAPSULE PO SCH (08:24)
[2020-04-04] MEDS: LACTOBACILLUS RHAMNOSUS GG 1 CAPSULE. PO SCH ×2 (08:24→21:19)
[2020-04-04] MEDS: RIVASTIGMINE 9.5MG PATCH. TD SCH (08:25)
--- NOTE | 2020-04-04 15:17 | PN ---
DATE: 04/02/2020 PSYCHIATRIC PROGRESS NOTE This late entry 04/02/2020 covers elements not covered in my initial note. SUBJECTIVE: I met with the patient evening of 04/02/2020. Per RAFAELA Mi, the patient slept 6 hours previous night. He has been more social, coming out more for groups, but still prefers his room. He did music group and attended mass in the morning. I met with him in his room in the evening. REVIEW OF SYSTEMS: Ambulation impaired, in wheelchair. No CV, , pulmonary, eye system symptoms on review. MENTAL STATUS EXAM: Oriented to himself and situation. Speech has some latency, often responses monosyllabic, coherent. Abstraction fair, computation impaired, language function intact. Mood and affect withdrawn. LABORATORY DATA: Reviewed. IMPRESSION: Unchanged from initial note. PLAN: No change from initial note. MAN Natalia BURLESON MD DR: DANIEL/glenn JOB#: [id number] / [id number]
--- NOTE | 2020-04-04 15:20 | PN ---
DATE: 04/03/2020 PSYCHIATRIC PROGRESS NOTE This late entry 04/03/2020 covers elements not covered in my initial note. SUBJECTIVE: I met with the patient evening of 04/03/2020 and staffed at a treatment team meeting with the entire team in the morning. Per RAFAELA Han, the patient has been calm, pleasant, sleeping reasonably well. He woke up somewhat early, coming out of his room more than before. Tearful with his daughter on the telephone. REVIEW OF SYSTEMS: Ambulation impaired, in wheelchair. No CV, , pulmonary, eye system symptoms on review. MENTAL STATUS EXAM: Oriented to himself and situation. Speech has some latency, coherent, often responses monosyllabic. Abstraction fair, computation impaired, language function intact, attention span short. Mood and affect still withdrawn, but improved. LABORATORY DATA: Reviewed. IMPRESSION: Unchanged from initial note. PLAN: No change from initial note. ELI BURLESON MD DR: DANIEL/glenn JOB#: [id number] / [id number]
[2020-04-04 15:39] VITALS: BP 122/64
[2020-04-04] MEDS ORDERED: ACET325T21 PO (18:34)
[2020-04-04] MEDS ORDERED: CHOL500021 PO (18:39)
[2020-04-04] MEDS ORDERED: CYPR4TAB31 PO (18:41)
[2020-04-04] MEDS ORDERED: LACT1CAP29 PO (18:43)
[2020-04-04] MEDS ORDERED: MAGN24003 PO (18:44)
[2020-04-04] MEDS ORDERED: MAG-95 PO (18:44)
[2020-04-04] MEDS ORDERED: METH28OI2 TP (18:45)
[2020-04-04] MEDS ORDERED: RIVA1PAT23 TD (18:46)
[2020-04-04] MEDS ORDERED: TERA5CAP3 PO (18:47)
[2020-04-04] MEDS ORDERED: SERT50TA PO (18:47)
[2020-04-04] MEDS: TERAZOSIN 5 MG CAPSULE. PO SCH (21:18)
[2020-04-04] MEDS: ATORVASTATIN CALCIUM 20 MG TABLET PO SCH (21:19)
[2020-04-04] MEDS: TAMSULOSIN 0.4 MG CAP.ER.24H. PO SCH (21:19)
[2020-04-04] MEDS: CYPROHEPTADINE 4 MG TABLET. PO SCH (21:19)
--- NOTE | 2020-04-04 22:07 | PDOC ---
Exam Note: Jay Note: Please also refer to the separate dictated note~for this date of service dictated separately.~Patient seen individually. Discussed the patient with Nursing staff reviewed the chart.~Reviewed interim history and current functioning. Reviewed vital signs,~Labs/ Radiology~and current medications noted below. Continue current treatment with the changes noted in the dictated addendum note Assessment: Vital Signs/I&O: Vital Signs Date Time Temp Pulse Resp B/P (MAP) Pulse Ox O2 Delivery O2 Flow Rate FiO2 04/04/20 21:18 79 122/64 04/04/20 15:39 97.6 20 95 04/02/20 06:04 Room Air I & O 04/03/20 04/03/20 04/04/20 15:00 23:00 07:00 Intake Total 1080 ml 360 ml 100 ml Output Total 300 ml 1100 ml Balance 1080 ml 60 ml -1000 ml Current Medications: I have reviewed the current psychotropics carefully including drug interactions. Risk benefit ratio favors no change other than as noted in my dictated progress note. 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
[2020-04-05 05:54] VITALS: BP 108/68
[2020-04-05] MEDS: MULTIVITAMIN with MINERAL TABLET. PO SCH (08:19)
[2020-04-05] MEDS: FOLIC ACID 1 MG TABLET PO SCH (08:19)
[2020-04-05] MEDS: CYANOCOBALAMIN (VITAMIN B-12) 250 MCG TABLET PO SCH (08:20)
[2020-04-05] MEDS: ASPIRIN ENTERIC COATED 81 MG TABLET.DR. PO SCH (08:20)
[2020-04-05] MEDS: POLYETHYLENE GLYCOL 3350 17 GM PACKET. PO SCH (08:20)
[2020-04-05] MEDS: RIVASTIGMINE 9.5MG PATCH. TD SCH (08:20)
[2020-04-05] MEDS: SERTRALINE 25 MG TABLET. PO SCH (08:20)
[2020-04-05] MEDS: LACTOBACILLUS RHAMNOSUS GG 1 CAPSULE. PO SCH (08:20)
--- NOTE | 2020-04-05 22:16 | PDOC ---
Exam Note: Jay Note: Please also refer to the separate dictated note~for this date of service dictated separately.~Patient seen individually. Discussed the patient with Nursing staff reviewed the chart.~Reviewed interim history and current functioning. Reviewed vital signs,~Labs/ Radiology~and current medications noted below. Continue current treatment with the changes noted in the dictated addendum note Assessment: Vital Signs/I&O: Vital Signs Date Time Temp Pulse Resp B/P (MAP) Pulse Ox O2 Delivery O2 Flow Rate FiO2 04/05/20 05:54 98.5 66 16 108/68 (81) 95 Room Air I & O 04/04/20 04/04/20 04/05/20 15:00 23:00 07:00 Intake Total 480 ml 340 ml Output Total 550 ml 250 ml Balance 480 ml -210 ml -250 ml Current Medications: I have reviewed the current psychotropics carefully including drug interactions. Risk benefit ratio favors no change other than as noted in my dictated progress note. 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
--- NOTE | 2020-04-06 09:05 | PDOC ---
Exam Note: Jay Note: This note is a late entry for 04/04/2020 covers elements not covered in my initial note. Subjective: The patient was seen face to face in the evening of 04/04/2020. Nursing report was with Jose RUSSO. He slept 10 hours previous night. I met with him in his room. Review of Systems: Ambulation impaired, in wheelchair. He is slightly hard of hearing. No CV, , pulmonary, eye system symptoms on review. Mental Status Exam: Reasonably oriented. Speech coherent. Abstraction is fair. Computation is impaired. Language function intact. Mood and affect improved. Laboratory Data: Reviewed. 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 Rest unchanged. Plan: No change from initial note. Possible transition to snf on 04/05/2020. Assessment: Vital Signs/I&O: Vital Signs Date Time Temp Pulse Resp B/P (MAP) Pulse Ox O2 Delivery O2 Flow Rate FiO2 04/05/20 05:54 98.5 66 16 108/68 (81) 95 Room Air I & O 04/05/20 04/05/20 04/06/20 15:00 23:00 07:00 Intake Total 240 ml Balance 240 ml Current Medications: I have reviewed the current psychotropics carefully including drug interactions. Risk benefit ratio favors no change other than as noted in my dictated progress note. 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
--- NOTE | 2020-04-07 21:32 | DS ---
DATE OF DISCHARGE: 04/05/2020 DISCHARGE SUMMARY/PSYCHIATRIC PROGRESS NOTE This late entry of 04/05/2020 covers the elements not covered in my initial note. REASON FOR ADMISSION: Please refer to the admission history for details. Briefly, the patient is an 89-year-old male referred to us from [facility] where the patient was in long term care. He was getting extremely agitated, pulling out his catheter, lunges out of the wheelchair, was yelling at peers, pinching staff, worsening confusion and paranoid. He had failed outpatient psychiatric interventions resulting in this referral. SIGNIFICANT FINDINGS AND CLINICAL COURSE: Following admission, the patient was seen daily individually by myself from a psychiatric standpoint, medical followup per Dr. Metcalf/Dr. Villanueva. The patient was on 20 mg of Zyprexa at admission. He was quite withdrawn and isolative. No clear psychotic symptoms were noted and the Zyprexa was tapered and discontinued. He did have a UTI, which was treated on Levaquin. He ultimately seemed to respond to a combination of Exelon patch 9.5 mg a day, Zoloft 75 mg a day, Periactin 4 mg at bedtime to stimulate appetite and trazodone 50 mg at bedtime p.r.n. insomnia. The hospitalization was extended because social service staff were trying to find appropriate placement for him. REVIEW OF SYSTEMS: Prior to discharge on 04/05/2020, ambulation impaired, in wheelchair. No CV, , pulmonary, eye system symptoms on review. MENTAL STATUS EXAM: Oriented to himself and situation. Speech moderate latency, often responses monosyllabic. Abstraction fair, computation impaired, language function intact. Mood and affect withdrawn. He was much more oriented than at admission. Less depressed. FINAL DIAGNOSES: Major depressive disorder, recurrent with psychotic features, in partial remission; major neurocognitive disorder, early Alzheimer, vascular with delusion, depression, behavioral disturbance; anxiety disorder, unspecified; impulse control disorder, unspecified. Rest unchanged from admission. DISCHARGE MEDICATIONS: Please refer to the [facility]. DISCHARGE INSTRUCTIONS: [facility]. Time for discharge day management greater than 30 minutes. ELI BURLESON MD DR: DANIEL/glenn JOB#: [id number] / [id number]
== END 2020-04-05 11:36 | DRG 885 ==
LOC: ER 12:58 → GEROPSY 15:05
PROVIDERS: ADMIT Psychiatry & Neurology Psychiatry; ATTEND Psychiatry & Neurology Psychiatry
DX: F33.3 Major depressive disorder, recurrent, severe with psychotic symptoms (principal); F01.51 Vascular dementia, unspecified severity, with behavioral disturbance; F02.81 Dementia in other diseases classified elsewhere, unspecified severity, with behavioral disturbance; N39.0 Urinary tract infection, site not specified; F41.9 Anxiety disorder, unspecified; F63.9 Impulse disorder, unspecified; G30.9 Alzheimer's disease, unspecified; G40.909 Epilepsy, unspecified, not intractable, without status epilepticus; Z20.828 Contact with and (suspected) exposure to other viral communicable diseases; J44.9 Chronic obstructive pulmonary disease, unspecified; N18.9 Chronic kidney disease, unspecified; N40.0 Benign prostatic hyperplasia without lower urinary tract symptoms; Z02.89 Encounter for other administrative examinations; Z66 Do not resuscitate; Z87.891 Personal history of nicotine dependence; Z91.81 History of falling; Z99.3 Dependence on wheelchair
CPT/HCPCS: 36415; 80053; 80061; 81001; 82306; 82607; 83036; 83540; 83550; 83735; 84436; 84443; 84480; 85025; 86592; 87086; 87186; 87299; 93005; 99285; 99407